=== PATIENT | male | born 1950 | race Caucasian/White ===

== ENCOUNTER → 2018-03-13 14:10 | Outpatient (CLI) | payer MEDICARE, SELFPAY ==
[2018-03-13 15:19] LABS: Absolute Lymphocyte Count 2.21 X10^3/ul (0.83-4.51); Absolute Neutrophil Count 4.2 X10^3/uL (2.0-7.7); Basophil# 0.04 X10^3/uL; Basophil% 0.5 % (0-1); Eosinophil# 0.24 X10^3/uL; Eosinophils% 3.1 % (0-5); Hematocrit 38.3 % (40-54); Hemoglobin 12.5 g/dl (13.0-16.5); Lymphocyte # 2.21 X10^3/ul (4.0); Lymphocyte % 28.9 % (19-41); Mean Corp Hgb Conc 32.6 g/gl (32-36); Mean Corpuscular Hgb 21.1 pg (27.0-32.0); Mean Corpuscular Volume 64.7 fL (80-94); Mean Platelet Vol. 10.3 fl (6.2-12.0); Monocyte# 0.89 X10^3/uL; Monocyte% 11.6 % (0-10); Neutrophil # 4.24 X10^3/uL (2.7-7.7); Neutrophil % 55.6 % (47-70); Platelet Count 281 K/mm3 (150-450); RBC Distribution Width SD 40.9 fl (35.1-43.9); Red Blood Count 5.92 M/mm3 (4.6-6.2); White Blood Count 7.6 K/mm3 (4.4-11.0)
[2018-03-13 15:27] LABS: POSITIVE COUNT NO; POSITIVE DIFFERENTIAL NO; POSITIVE MORPHOLOGY NO
[2018-03-13 15:28] LABS: Erythrocyte Sedimentation Rate 35 mm/hr (0-20)
[2018-03-13 15:31] LABS: ALB/GLOB Ratio 0.8 RATIO (0.9-2.4); AST(SGOT) 32 U/L (15-37); Alanine Aminotransfer ALT/SGPT 53 U/L (16-61); Albumin, Serum 3.6 g/dL (3.2-5.0); Alkaline Phosphatase 114 U/L (45-117); Anion Gap 9 (5-15); BUN 23 mg/dL (7-18); BUN/Creat Ratio 22.8 RATIO (10-20); CRP 5.54 mg/L (0.0-3.0); Calcium,Total 9.5 mg/dL (8.5-10.1); Chloride 101 mmol/L (98-107); Creatinine, Serum 1.01 mg/dL (0.70-1.30); EST Glomerular Filtration Rate 78 mL/min (>60); Est Glom Filt Rate - Afr Amer 94 mL/min (>60); Globulin 4.6 g/dL (2.2-4.2); Glucose 115 mg/dL (74-106); Potassium 3.8 mmol/L (3.5-5.1); Protein, Total 8.2 g/dL (6.4-8.2); Rheumatoid Factor < 10.0 IU/mL (<15); Sodium Level 139 mmol/L (136-145)
[2018-03-22 14:05] LABS: QNTFERON TB Mitogen Value > 10.00 IU/mL (.); QNTFERON TB Nil Value 0.73 IU/mL (.); QNTFERON TB1+ Ag Value 9.23 IU/mL (.); QNTFERON TB2+ Ag Value 9.39 IU/mL (.)
[2018-03-22 15:57] LABS: CCP IgG Antibodies 9 units (0-19); HEPATITIS B SURFACE AG Negative (Negative); HLA B27 Negative (.); Hep B Surface Antibodies Reactive (.); Hep C Antibodies <0.1 s/co ratio (0.0-0.9); QNTIFERON TB Positive Criteria Positive (Negative)
--- OUTSIDE RECORDS SUMMARY | 2018-06-15 01:56 | XMS RPT_ITS ---
:1950 Author Organization OH[facility] Care Team Providers Name Role Phone RAO ISLAS Referring Unavailable RAO ISLAS Referring Unavailable RAO ISLAS Attending Unavailable RAO ISLAS Attending Unavailable RAO ISLAS Attending Unavailable RAO ISLAS Referring Unavailable RAO ISLAS Attending Unavailable James KOEHLER (IVONNE-C) Referring Unavailable James KOEHLER (PA-C) Attending Unavailable James KOEHLER (PA-C) Referring Unavailable James KOEHLER (IVONNE-C) Referring Unavailable RAO ISLAS Referring Unavailable RAO ISLAS Referring Unavailable RAO ISLAS Attending Unavailable Stephanie Del Rio Attending Unavailable Stephanie Del Rio Referring Unavailable Rao Islas Primary Care Unavailable PROBLEMS PROBLEMS DATE TYPE CONDITION / CODE ATTENDING STATUS SOURCE 12/11/2017 Active Essential (primary) NA Active [facility] hypertension / [place] I10(ICD-10) Repository 12/11/2017 Active Abnormal levels of NA Active [facility] other serum enzymes [place] / R74.8(ICD-10) Repository 12/11/2017 Active Pain in right hand NA Active [facility] / M79.641(ICD-10) [place] Repository 12/11/2017 Active Pain in left hand / NA Active [facility] M79.642(ICD-10) [place] Repository 10/19/2017 Active Other injury of NA Active [facility] unspecified body [place] region, initial Repository encounter / T14.8XXA(ICD-10) 09/13/2017 Active Alcohol abuse, NA Active [facility] uncomplicated / [place] F10.10(ICD-10) Repository 07/31/2017 Active Hyperglycemia, NA Active [facility] unspecified / [place] R73.9(ICD-10) Repository 07/31/2017 Active Gout, unspecified / NA Active [facility] M10.9(ICD-10) [place] Repository 07/28/2017 Active [address] NA Active [facility] acquired deformity [place] of hand, Repository unspecified hand / M21.949(ICD-10) PROCEDURES PROCEDURES No Procedure Records FoundRESULTS RESULTS CBC W/DIFF, AUTOMATED Collected: 03/13/2018 Status: F Source: [place] 2:19 PM [facility] REPOSITORY TYPE CODE TESTS RESULT OUT OF RANGE REFERENCE UNITS LAB L100.1000 4.4-11.0 K/mm3 Normal WBC 7.6 LAB L100.1200 4.6-6.2 M/mm3 Normal RBC 5.92 LAB L100.1300 13.0-16.5 g/dl Low HGB 12.5 LAB L100.1400 40-54 % Low HCT 38.3 LAB L100.1500 80-94 fL Low MCV 64.7 LAB L100.1600 27.0-32.0 pg Low MCH 21.1 LAB L100.1700 32-36 g/gl Normal MCHC 32.6 LAB L100.1810 11.6-14.6 % High RDW CV 18.0 LAB L100.1820 35.1-43.9 fl Normal RDW SD 40.9 LAB L100.1900 150-450 K/mm3 Normal PLT 281 LAB L100.2000 6.2-12.0 fl Normal MPV 10.3 LAB L100.2100 47-70 % Normal NEUT% 55.6 LAB L100.2200 19-41 % Normal LY% 28.9 LAB L100.2300 0-10 % High MONO% 11.6 LAB L100.2400 0-5 % Normal EO% 3.1 LAB L100.2500 0-1 % Normal BASO% 0.5 LAB L100.2550 0.0-0.9 % Normal IM GRAN % 0.300 Result Comment: IG% - Immature Granulocytes (promyelocytes, myelocytes and metamyelocytes) > 1% indicates that a LEFT SHIFT is Present. LAB L100.2620 2.0-7.7 X10 3/uL Normal Absolute Neut 4.2 LAB L100.2720 0.83-4.51 X10 3/ul Normal Absolute Lymph 2.21 Performed By: #### L100.0100, L101.9900 #### [facility] [address] [place], [address] ERYTHROCYTE SED RATE Collected: 03/13/2018 Status: F Source: [place] 2:19 PM [facility] REPOSITORY TYPE CODE TESTS RESULT OUT OF RANGE REFERENCE UNITS LAB L102.0000 0-20 mm/hr High SED RATE 35 Performed By: #### L100.0100, L101.9900 #### [facility] [address] [place], [address] COMPREHENSIVE METABOLIC Collected: 03/13/2018 Status: F [facility] 2:19 PM [facility] REPOSITORY TYPE CODE TESTS RESULT OUT OF RANGE REFERENCE UNITS LAB L501.0100 74-106 mg/dL High GLU 115 Result Comment: Fasting Glucose result from 100 to 125 mg/dL suggests IMPAIRED HOMEOSTASIS per A.D.A. criteria. Please note revised GLUCOSE reference range effective 2017. LAB L501.1000 7-18 mg/dL High BUN 23 LAB L501.1100 0.70-1.30 mg/dL Normal CREAT,SERUM 1.01 Result Comment: The validity of the calculated GFR AND GFRAA in patients over 70 years has not been determined. Clinical correlation is essential. LAB L501.1110 >60 mL/min Normal EST GFR 78 Result Comment: Non- GFR Calc LAB L501.1115 >60 mL/min Normal EST GFR - AA 94 Result Comment: GFR Calc LAB L501.1300 10-20 RATIO High BUN/CRE 22.8 LAB L501.1500 6.4-8.2 g/dL T Normal PROT 8.2 LAB L501.1800 3.2-5.0 g/dL Normal ALB 3.6 LAB L501.1950 2.2-4.2 g/dL High GLOB 4.6 LAB L501.2000 0.9-2.4 RATIO Low A/G 0.8 LAB L501.2200 8.5-10.1 mg/dL CA Normal 9.5 LAB L501.4100 15-37 U/L Normal AST 32 LAB L501.4305 45-117 U/L Normal ALK P 114 LAB L501.4405 16-61 U/L Normal ALT 53 LAB L501.4600 0.20-1.00 mg/dL T Normal BILI 0.20 LAB L501.5300 136-145 mmol/L NA Normal 139 LAB L501.5600 3.5-5.1 mmol/L K Normal 3.8 LAB L501.5900 98-107 mmol/L CL Normal 101 LAB L501.6100 21.0-32.0 mmol/L Normal CO2 29.0 LAB L501.6200 5-15 Normal GAP 9 Performed By: #### L500.4050, L501.6710, L505.7010 #### [facility] [address] [place], [place], [id number] CRP Collected: 03/13/2018 Status: F Source: [place] 2:19 PM [facility] REPOSITORY TYPE CODE TESTS RESULT OUT OF RANGE REFERENCE UNITS LAB L501.6710 0.0-3.0 mg/L High 5.54 C-REACTIVE PROT Result Comment: C-Reactive Protein (CRP) provides useful information for the diagnosis, therapy and monitoring of inflammatory processes and associated diseases. For the evaluation of Relative Risk for Cardiovascular Disease, a High Sensitivity CRP (HSCRP) should be ordered. Performed By: #### L500.4050, L501.6710, L505.7010 #### [facility] [address] [facility]. [place], [place], [id number] RHEUMATOID FACTOR Collected: 03/13/2018 Status: F Source: [place] 2:19 PM [facility] REPOSITORY TYPE CODE TESTS RESULT OUT OF RANGE REFERENCE UNITS LAB L505.7010 <15 IU/mL Normal RHEUMATOID FAC < 10.0 Performed By: #### L500.4050, L501.6710, L505.7010 #### [facility] [address] [facility] [place], [place], [id number] HEPATITIS B SURFACE Collected: 03/13/2018 Status: F Source: [place] [facility] 2:19 PM [facility] REPOSITORY TYPE CODE TESTS RESULT OUT OF RANGE REFERENCE UNITS LAB L3100.0400 Negative Normal HB Negative SURF AG Result Comment: Performed at: [address] [id number] Building Carpenter Helper: Gerardo Dudley PhD, Phone: [phone] Performed at: 2Q - [facility] [address] [place], [place] [id number] Building Carpenter Helper: Vamshi Mead PhD, Phone: [phone] Performed at: BN - [facility] [address], [place] [id number] Building Carpenter Helper: Girma Medina MD, Phone: [phone] Performed By: #### L3100.0390, L3100.0528, L3100.0625, L3400.8000, L3410.1400, L4600.0100 #### [facility] (refer to report for specific site) refer to report for address and phone number HEP B SURFACE Collected: 03/13/2018 Status: F Source: [place] [facility] 2:19 PM [facility] REPOSITORY TYPE CODE TESTS RESULT OUT OF RANGE REFERENCE UNITS LAB L3100.0528 . Normal Hep B Reactive Sunil AB Result Comment: Non Reactive: Inconsistent with immunity, less than 10 mIU/mL Reactive: Consistent with immunity, greater than 9.9 mIU/mL Performed By: #### L3100.0390, L3100.0528, L3100.0625, L3400.8000, L3410.1400, L4600.0100 #### [facility] (refer to report for specific site) refer to report for address and phone number HEPATITIS C ANTIBODIES Collected: 03/13/2018 Status: F Source: [place] 2:19 PM [facility] REPOSITORY TYPE CODE TESTS RESULT OUT OF RANGE REFERENCE UNITS LAB L3100.0650 0.0-0.9 s/co ratio Normal HEP C AB <0.1 Result Comment: Negative: < 0.8 Indeterminate: 0.8 - 0.9 Positive: > 0.9 The CDC recommends that a positive HCV antibody result be followed up with a HCV Nucleic Acid Amplification test ([id number]). Performed By: #### L3100.0390, L3100.0528, L3100.0625, L3400.8000, L3410.1400, L4600.0100 #### [facility] (refer to report for specific site) refer to report for address and phone number QUANTIFERON TB-GOLD+ Collected: 03/13/2018 Status: F Source: [place] 2:19 PM [facility] REPOSITORY TYPE CODE TESTS RESULT OUT OF RANGE REFERENCE UNITS LAB L3400.8025 . Normal QFT TB Comment GOLD Result Comment: The QuantiFERON-TB Gold Plus result is determined by subtracting the Nil value from either TB antigen (Ag) tube. The mitogen tube serves as a control for the test. LAB L3400.8035 . IU/mL Normal QFT TB1+ AG 9.23 [facility] L3400.8045 . IU/mL Normal QFT TB2+ AG 9.39 [facility] L3400.8055 . IU/mL Normal QFT NIL VALUE 0.73 LAB L3400.8065 . IU/mL Normal QFT MITOGEN > 10.00 [facility] L3400.8075 Negative High QFT TB POS Positive CRIT Result Comment: The specimen received for QuantiFERON testing was incubated by the ordering institution. Specific procedures outlined in our Directory of Services and in the package insert for the QuantiFERON Gold (In Tube) test must be followed to enable for proper stimulation of cells for the production of interferon gamma. Performed By: #### L3100.0390, L3100.0528, L3100.0625, L3400.8000, L3410.1400, L4600.0100 #### [facility] (refer to report for specific site) refer to report for address and phone number HLA B27 Collected: 03/13/2018 Status: F Source: [place] 2:19 PM [facility] REPOSITORY TYPE CODE TESTS RESULT OUT OF RANGE REFERENCE UNITS LAB L3410.1500 . Normal HLA Negative B27 Result Comment: HLA-B*27 Negative B27 allele interpretation for all loci based on IMGT/HLA database version 3.31.0 This test was developed and its performance characteristics determined by [facility]. It has not been cleared or approved by the Food and Drug Administration. [facility] CLIA ID Number [id number] This test was performed using PCR (Polymerase Chain Reaction)/SSOP (Sequence Specific Oligonucleotide Probes) technique. SBT (Sequence Based Typing) and/or SSP (Sequence Specific Primers) may be used as supplemental methods when necessary. Please contact [facility] Customer Service at if you have any questions. Director of [facility] Dr Vamshi Mead, PhD Performed By: #### L3100.0390, L3100.0528, L3100.0625, L3400.8000, L3410.1400, L4600.0100 #### [facility] (refer to report for specific site) refer to report for address and phone number CCP IGG ANTIBODIES Collected: 03/13/2018 Status: F Source: [place] 2:19 PM [facility] REPOSITORY TYPE CODE TESTS RESULT OUT OF RANGE REFERENCE UNITS LAB L4600.0100 0-19 units Normal ANTI-CCP 9 [id number] Result Comment: Negative <20 Weak positive 20 - 39 Moderate positive 40 - 59 Strong positive >59 Performed By: #### L3100.0390, L3100.0528, L3100.0625, L3400.8000, L3410.1400, L4600.0100 #### [facility] (refer to report for specific site) refer to report for address and phone number SED RATE [place]STERGREN Collected: 12/11/2017 Status: F Source: [place] 4:12 PM [facility] REPOSITORY TYPE CODE TESTS RESULT OUT OF REFERENCE UNITS RANGE LAB WSR 0-15 mm/hr Sed Rate High [place] 16 Performed By: #### WSR, CMP, CRP, URIC #### [facility] [address] [place] [address] COMP METABOLIC PANEL Collected: 12/11/2017 Status: F Source: [place] 4:12 PM [facility] REPOSITORY TYPE CODE TESTS RESULT OUT OF REFERENCE UNITS RANGE LAB TP 6.3-8.0 g/dL Protein, Total 7.5 LAB ALB 3.9-4.9 g/dL Albumin 4.2 LAB CA 8.5-10.2 mg/dL Calcium, Total 9.4 LAB TBIL 0.2-1.3 mg/dL Bilirubin, Total 0.3 LAB ALKP 36-108 U/L Alkaline Phosphatase 80 LAB AST 14-40 U/L AST 40 LAB GLU 74-99 mg/dL Glucose High 102 Result Comment: The [place] Diabetes Association (ADA) provides guidance for cutoff values for fasting glucose and random glucose. The ADA defines fasting as no caloric intake for at least 8 hours. Fas ting plasma glucose results between 100 to 125 mg/dL indicate increased risk for diabetes (prediabetes). Fasting plasma glucose results greater than or equal to 126 mg/dL meet the criteria for diagnosis of diabetes. In the absence of unequivocal hyperglycemia, results should be confirmed by repeat testing. In a patient with classic symptoms of hyperglycemia or hyperglycemic crisis, random plasma glucose results greater than or equal to 200 mg/dL meet the criteria for diagnosis of diabetes. Reference: Standards of Medical Care in Diabetes 2016, [place] Diabetes Association. Diabetes Care. 2016.39(Suppl 1). LAB BUN 9-24 mg/dL BUN 12 LAB CRET 0.73-1.22 mg/dL Creatinine 0.87 LAB NA 136-144 mmol/L Sodium 136 LAB K 3.7-5.1 mmol/L Potassium 4.6 LAB CL 97-105 mmol/L Chloride 99 LAB CO2 22-30 mmol/L CO2 26 LAB AGAP 9-18 mmol/L Anion Gap 11 LAB ALT 10-54 U/L ALT 39 LAB GFRAA eGFR- Amer. >60 LAB GFRNAA . eGFR-All Other Races >60 Result Comment: eGFR (Estimated GFR) Units of measure: mL/min/1.73 meters squared eGFR is derived from the reexpressed MDRD Study equation using the following parameters: serum creatinine, age, gender and race. The creatinine assay has been calibrated to be traceable to IDMS. An eGFR <60 mL/min/1.73m2 for >3 months is consistent with chronic kidney disease. Refer to KDOQI guidelines for clinical interpretation. In patients with unstable renal function, e.g. those with acute kidney injury, the eGFR may not accurately reflect actual GFR. Performed By: #### WSR, CMP, CRP, URIC #### [facility] [employer] [address] [place] [id number] C-REACTIVE PROTEIN Collected: 12/11/2017 Status: F Source: [place] 4:12 PM [facility] REPOSITORY TYPE CODE TESTS RESULT OUT OF REFERENCE UNITS RANGE LAB CRP <0.9 mg/dL C-Reactive 0.4 Protein Performed By: #### WSR, CMP, CRP, URIC #### [facility] [address] [place] [address] URIC ACID Collected: 12/11/2017 Status: F Source: [place] 4:12 PM [facility] REPOSITORY TYPE CODE TESTS RESULT OUT OF RANGE REFERENCE UNITS LAB URIC 4.0-8.1 mg/dL Uric Acid 5.5 Performed By: #### WSR, CMP, CRP, URIC #### [facility] [address] [place] [id number] XR HAND 3V PA/LAT/OBL Observed: 12/11/2017 Status: F Source: [facility] 4:09 PM [facility] REPOSITORY * * *Final Report* * * DATE OF EXAM: Dec 11 2017 4:09PM [id number] - XR HAND 3V PA/LAT/OBL IRA / PROCEDURE REASON: multiple diagnoses * * * * Physician Interpretation * * * * EXAMINATION: XR HAND 3V PA/LAT/OBL IRA CLINICAL HISTORY: No injury. Bilateral hand pain mostly in the DIP joints of the fingers. Pain in right hand Pain in left hand Technique: XR HAND 3V PA/LAT/OBL IRA -- BILATERAL hands with 3 each views on 3 images Comparison: 07/28/2017 RESULT: Right: Redemonstration of remote ulnar styloid fracture. Joint spaces are maintained. No new fracture or dislocation. Degenerative changes in the DIP joints with small marginal osteophytes and cysts predominantly in the second and fifth fingers associated with mild soft tissue swelling. Left: Redemonstration of cystic change in the distal pole of the scaphoid, unchanged. No fracture or dislocation. Degenerative changes in the DIP joints with small marginal osteophytes at second and fifth fingers associated with soft tissue swelling. IMPRESSION: No acute osseous findings. Degenerative changes bilateral hands as described. Network Desktop Support Specialist: PSCB Transcribe Date/Time: Dec 11 2017 5:40P Dictated by : SAMANTHA KEMP MD This examination was interpreted and the report reviewed and electronically signed by: SAMANTHA KEMP MD on Dec 11 2017 5:43PM EST [id number] PROGRESS Observed: 12/11/2017 Status: COMPLETED Source: [place] 4:00 PM [facility] REPOSITORY HNO ID: [id number] Author: Ginger Rodriguez (Rt) Angélica Brewster Service: (none) Author Type: Director Of Market Analysis Type: Progress Notes Filed: 12/11/2017 4:09 PM Note Text: Radiology Service Progress Note PATIENT NAME: Max Ventura DATE OF SERVICE: December 11, 2017 TIME: 4:00 PM PATIENT IDENTITY VERIFICATION COMPLETED USING TWO (2) METHODS: Patient confirmed name verbally and Date of . PATIENT GENDER DATA: Male PATIENT RELEVANT IMPLANT DATA REVIEWED: Not Applicable RADIOLOGY DEPARTMENT: General X-ray: Exam(s) Completed: Upper Extremity X-Ray(s): Hand, bilateral : PERIPHERAL IV DATA: Not applicable SIGNED BY: RT Bisi December 11, 2017 4:00 PM PROGRESS Observed: 12/11/2017 Status: COMPLETED Source: [place] 3:22 PM [facility] HNO ID: [id number] Author: Rao Islas Service: (none) Author Type: Physician Type: Progress Notes Filed: 12/11/2017 3:31 PM Note Text: Patient presents with: Recheck: left great toe HPI: Patient presents today for office visit for follow up. HTN: Patient is compliant with meds Yes Monitors bp at home: No. Denies side effects: Yes. Chest pain: No. Dyspnea: No. Edema: No. Palpitations: No. Syncope: No. Headache: No. Dizziness: No. Gi: no longer drinking. Has had a rare etoh use. Toe is healing well. His hands are bothering him more. Pain is over the distal joints. He was worried about gout because worse when he is eating meat. He does have some psoriatic lesions on his skin. Using gold arboleda for skin. MEDICATIONS: Current Outpatient Prescriptions: lisinopril (ZESTRIL, PRINIVIL) 40 mg tablet Take 1 tablet by mouth once daily. Hydrochlorothiazide 12.5 mg capsule Take 1 capsule by mouth once daily. No current facility-administered medications for this visit. ALLERGIES: ALLERGIES No Known Allergies PAST MEDICAL HISTORY Diagnosis Date - Hernia of abdominal cavity - HTN (hypertension) - Hyperglycemia - Tobacco abuse quit PAST SURGICAL HISTORY Procedure Laterality Date - PAST SURGICAL HISTORY OF dental work - REPAIR INCISIONAL HERNIA,REDUCIBLE Bilateral 08/26/2014 3D Max lite FAMILY HISTORY Problem Relation Age of Onset - Diabetes Mother Social History Marital status: Single Spouse name: Years of education: Number of children: 2 Social History Main Topics Smoking status: Former Smoker Packs/day: 1.00 Years: 50.00 Types: Cigarettes Quit date: 05/15/2012 Smokeless tobacco: Never Used Comment: continues nicotine gum Alcohol use: Yes 4.0 oz/week Glasses of wine: 8 per week Comment: 1bottle and 1 glass of wine daily Drug use: No Reviewed current medications, allergies, past medical history, surgical history, family history and social history today. REVIEW OF SYSTEMS GI: Negative for change in bowel habit : No history of dysuria, frequency or incontinence All other reviewed and negative other than HPI. HEALTH MAINTENANCE: Reviewed health maintenance issues today and recommended the following in detail. DTAP,TDAP,TD(1 - Tdap) due on 09/10/2015 [place]EC[place] OCCULT BLOOD due on 07/19/2017 INFLUENZA declines VITALS: BP 118/72 Pulse (!) 52 Resp 16 Last 4 Encounter Wt Readings: Date: Wt: 11/14/2017 63.5 kg (140 lb) 07/28/2017 67.6 kg (149 lb) 07/18/2016 64.9 kg (143 lb) 09/09/2015 67.1 kg (148 lb) PHYSICAL EXAMINATION: General appearance: Well appearing, alert, in no acute distress, well-hydrated, well nourished. Skin: Skin color, texture, turgor normal, no suspicious rashes or lesions. Toe healing well. Red flags for re-assessment reviewed with patient in detail. Head: Normocephalic, no masses, lesions, tenderness or abnormalities Neck: Supple, no adenopathy; thyroid symmetric, normal size, no bruits Lungs: Lungs clear to auscultation. No wheezing, rhonchi, rales Heart: RRR without murmur, gallop, or rubs. No ectopy Abdomen: Normal abdominal exam, Abdomen soft, non-tender. Bowel sounds normal. No masses, organomegaly Extremities: No deformities, edema, skin discoloration, clubbing or cyanosis. Good capillary refill. Musculoskeletal: No joint swelling, deformity, or tenderness, ? Psoriatic arthritis. Has some plaques over elbows and swelling over dip joints of hands. ASSESSMENT/PLAN: 1. Essential hypertension - ICD9: 401.9, ICD10: I10 (primary diagnosis) - good control - Continue current medication(s) - Goal of BP <140/90 2. Tobacco abuse - ICD9: 305.1, ICD10: Z72.0 - no longer smoking. 3. Psoriasis - ICD9: 696.1, ICD10: L40.9 - ok to use gold arboleda. 4. Psoriatic arthritis (HCC) - ICD9: 696.0, ICD10: L40.50 - get xrays. Get labs. See rheum 5. Elevated liver enzymes - ICD9: 790.5, ICD10: R74.8 - check labs. Rao Islas MD RTO in six months and drenKwadwo RAYO Observed: 12/11/2017 Status: COMPLETED Source: [place] 2:20 PM [facility] REPOSITORY Office Visit (FAMPWS) MAX VENTURA ([id number]) 1950 M Date Time Provider Department 12/11/17 2:20 PM RAO ISLAS During your visit today, we recorded the following information about you: Pulse Respiration Blood pressure 52/minute 16/minute 118/72 Rao Islas MD 12/11/2017 3:31 PM Signed Patient presents with: Recheck: left great toe HPI: Patient presents today for office visit for follow up. HTN: Patient is compliant with meds Yes Monitors bp at home: No. Denies side effects: Yes. Chest pain: No. Dyspnea: No. Edema: No. Palpitations: No. Syncope: No. Headache: No. Dizziness: No. Gi: no longer drinking. Has had a rare etoh use. Toe is healing well. His hands are bothering him more. Pain is over the distal joints. He was worried about gout because worse when he is eating meat. He does have some psoriatic lesions on his skin. Using gold arboleda for skin. MEDICATIONS: Current Outpatient Prescriptions: lisinopril (ZESTRIL, PRINIVIL) 40 mg tablet Take 1 tablet by mouth once daily. Hydrochlorothiazide 12.5 mg capsule Take 1 capsule by mouth once daily. No current facility-administered medications for this visit. ALLERGIES: ALLERGIES No Known Allergies PAST MEDICAL HISTORY Diagnosis Date - Hernia of abdominal cavity - HTN (hypertension) - Hyperglycemia - Tobacco abuse quit PAST SURGICAL HISTORY Procedure Laterality Date - PAST SURGICAL HISTORY OF dental work - REPAIR INCISIONAL HERNIA,REDUCIBLE Bilateral 08/26/2014 3D Max lite FAMILY HISTORY Problem Relation Age of Onset - Diabetes Mother Social History Marital status: Single Spouse name: Years of education: Number of children: 2 Social History Main Topics Smoking status: Former Smoker Packs/day: 1.00 Years: 50.00 Types: Cigarettes Quit date: 05/15/2012 Smokeless tobacco: Never Used Comment: continues nicotine gum Alcohol use: Yes 4.0 oz/week Glasses of wine: 8 per week Comment: 1bottle and 1 glass of wine daily Drug use: No Reviewed current medications, allergies, past medical history, surgical history, family history and social history today. REVIEW OF SYSTEMS GI: Negative for change in bowel habit : No history of dysuria, frequency or incontinence All other reviewed and negative other than HPI. HEALTH MAINTENANCE: Reviewed health maintenance issues today and recommended the following in detail. DTAP,TDAP,TD(1 - Tdap) due on 09/10/2015 FECAL OCCULT BLOOD due on 07/19/2017 INFLUENZA declines VITALS: BP 118/72 Pulse (!) 52 Resp 16 Last 4 Encounter Wt Readings: Date: Wt: 11/14/2017 63.5 kg (140 lb) 07/28/2017 67.6 kg (149 lb) 07/18/2016 64.9 kg (143 lb) 09/09/2015 67.1 kg (148 lb) PHYSICAL EXAMINATION: General appearance: Well appearing, alert, in no acute distress, well-hydrated, well nourished. Skin: Skin color, texture, turgor normal, no suspicious rashes or lesions. Toe healing well. Red flags for re-assessment reviewed with patient in detail. Head: Normocephalic, no masses, lesions, tenderness or abnormalities Neck: Supple, no adenopathy; thyroid symmetric, normal size, no bruits Lungs: Lungs clear to auscultation. No wheezing, rhonchi, rales Heart: RRR without murmur, gallop, or rubs. No ectopy Abdomen: Normal abdominal exam, Abdomen soft, non-tender. Bowel sounds normal. No masses, organomegaly Extremities: No deformities, edema, skin discoloration, clubbing or cyanosis. Good capillary refill. Musculoskeletal: No joint swelling, deformity, or tenderness, ? Psoriatic arthritis. Has some plaques over elbows and swelling over dip joints of hands. ASSESSMENT/PLAN: 1. Essential hypertension - ICD9: 401.9, ICD10: I10 (primary diagnosis) - good control - Continue current medication(s) - Goal of BP <140/90 2. Tobacco abuse - ICD9: 305.1, ICD10: Z72.0 - no longer smoking. 3. Psoriasis - ICD9: 696.1, ICD10: L40.9 - ok to use gold arboleda. 4. Psoriatic arthritis (HCC) - ICD9: 696.0, ICD10: L40.50 - get xrays. Get labs. See rheum 5. Elevated liver enzymes - ICD9: 790.5, ICD10: R74.8 - check labs. Rao Islas MD RTO in six months and prn. Rao Islas MD 12/11/2017 3:57 PM Signed Addended by: RAO ISLAS MD on: 12/11/2017 03:57 PM Modules accepted: Orders Referring Provider: SELF [[id number]] Allergies As of Date: 12/11/2017 (No Known Allergies) Date Reviewed: 12/11/2017 Reviewed by: Maricruz Milton LPN - Fully Assessed Reason for Visit: Recheck [92] Cmt: left great toe Primary Visit Diagnosis:Essential hypertension [I10] Other Visit Diagnoses:Psoriasis [L40.9] Psoriatic arthritis (HCC) [L40.50] Elevated liver enzymes [R74.8] Pain in both hands [M79.641, M79.642] Screening for colon cancer [Z12.11] Order(s):XR HAND 2V PA/LAT BILATERAL [3492513] Order #: [id number] FUTURE COMP METABOLIC PANEL [SQCMP] Order #: [id number] FUTURE SED RATE WESTERGREN [SQWSR] Order #: [id number] FUTURE C-REACTIVE PROTEIN (CRP) [SQCRP] Order #: [id number] FUTURE URIC ACID BLOOD [SQURIC] Order #: [id number] FUTURE CONSULT TO RHEUM/IMMUN DISEASE [9039] Order #: [id number]: 1 FECAL OCCULT BLOOD TEST [SQIFOBT] Order #: [id number] FUTURE XR HAND GENERAL 3V PA/LAT/OBL BILAT [[id number]] Order #: [id number] FUTURE Prescriptions as of 12/11/2017 Sig: LISINOPRIL 40 MG TABLET Take 1 tablet by mouth once d* HYDROCHLOROTHIAZIDE 12.5 MG C* Take 1 capsule by mouth once * Problem List As Of Date 12/11/2017 Noted Resolved PSYCHOSEXUAL DYSFUNC NOS [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 Follow-up and Disposition History Recorded Encounter Status:Closed by RAO ISLAS MD on 12/11/17 PROGRESS Observed: 11/14/2017 Status: COMPLETED Source: [place] 2:00 PM [facility] REPOSITORY O ID: [id number] Author: Rao Islas Service: (none) Author Type: Physician Type: Progress Notes Filed: 11/14/2017 2:22 PM Note Text: Patient presents with: Recheck HPI: Patient presents today for office visit for recheck on his foot. No fever or chills. Seems to starting to heal. Not really draining any much. Using soap and water to cleanse. Offered podiatry or wound care. He declines. I explained I wanted to make sure it is healing up well. Offered to bradley. He declines that as well. No pain. Red flags for re-assessment reviewed with patient in detail. Hypertension: no chest pain or shortness of breath. MEDICATIONS: Current Outpatient Prescriptions: lisinopril (ZESTRIL, PRINIVIL) 40 mg tablet Take 1 tablet by mouth once daily. Hydrochlorothiazide 12.5 mg capsule Take 1 capsule by mouth once daily. No current facility-administered medications for this visit. ALLERGIES: ALLERGIES No Known Allergies PAST MEDICAL HISTORY Diagnosis Date - Hernia of abdominal cavity - HTN (hypertension) - Hyperglycemia - Tobacco abuse quit PAST SURGICAL HISTORY Procedure Laterality Date - PAST SURGICAL HISTORY OF dental work - REPAIR INCISIONAL HERNIA,REDUCIBLE Bilateral 08/26/2014 3D Max lite FAMILY HISTORY Problem Relation Age of Onset - Diabetes Mother Social History Marital status: Single Spouse name: Years of education: Number of children: 2 Social History Main Topics Smoking status: Former Smoker Packs/day: 1.00 Years: 50.00 Types: Cigarettes Quit date: 05/15/2012 Smokeless tobacco: Never Used Comment: continues nicotine gum Alcohol use: Yes 4.0 oz/week Glasses of wine: 8 per week Comment: 1bottle and 1 glass of wine daily Drug use: No Reviewed current medications, allergies, past medical history, surgical history, family history and social history today. REVIEW OF SYSTEMS All other reviewed and negative other than HPI. VITALS: BP 122/60 (BP Site: Left Arm, BP Position: Sitting, BP Cuff Size: Regular Adult) Pulse 64 Resp 14 Wt 63.5 kg (140 lb) BMI 24.03 kg/m? Last 4 Encounter Wt Readings: Date: Wt: 11/14/2017 63.5 kg (140 lb) 07/28/2017 67.6 kg (149 lb) 07/18/2016 64.9 kg (143 lb) 09/09/2015 67.1 kg (148 lb) PHYSICAL EXAMINATION: General appearance: Well appearing, alert, in no acute distress, well-hydrated, well nourished. Foot: end of great toe still shows some healing granulation tissue. No signs of infection. No red streaks. Normal pp's ASSESSMENT/PLAN: 1. Open fracture of both great toes with routine healing, subsequent encounter - ICD9: V54.19, ICD10: S92.401D, S92.402D (primary diagnosis) - watch for signs of infection. Is slowly healing. Declines xray, wound care or podiatry. Red flags for re-assessment reviewed with patient in detail. - recheck in two weeks. 2. Open wound of left great toe, subsequent encounter - ICD9: V58.89, 893.0, ICD10: S91.102D - as above. Rao Islas MD CNOV Observed: 11/14/2017 Status: COMPLETED Source: [place] 1:40 PM [facility] REPOSITORY Office Visit ([facility]) MAX VENTURA ([id number]) 1950 M Date Time Provider Department 11/14/17 1:40 PM RAO ISLAS During your visit today, we recorded the following information about you: Pulse Respiration Blood pressure Weight 64/minute 14/minute 122/60 63.5 kg Rao Islas MD 11/14/2017 2:22 PM Signed Patient presents with: Recheck HPI: Patient presents today for office visit for recheck on his foot. No fever or chills. Seems to starting to heal. Not really draining any much. Using soap and water to cleanse. Offered podiatry or wound care. He declines. I explained I wanted to make sure it is healing up well. Offered to bradley. He declines that as well. No pain. Red flags for re-assessment reviewed with patient in detail. Hypertension: no chest pain or shortness of breath. MEDICATIONS: Current Outpatient Prescriptions: lisinopril (ZESTRIL, PRINIVIL) 40 mg tablet Take 1 tablet by mouth once daily. Hydrochlorothiazide 12.5 mg capsule Take 1 capsule by mouth once daily. No current facility-administered medications for this visit. ALLERGIES: ALLERGIES No Known Allergies PAST MEDICAL HISTORY Diagnosis Date - Hernia of abdominal cavity - HTN (hypertension) - Hyperglycemia - Tobacco abuse quit PAST SURGICAL HISTORY Procedure Laterality Date - PAST SURGICAL HISTORY OF dental work - REPAIR INCISIONAL HERNIA,REDUCIBLE Bilateral 08/26/2014 3D Max lite FAMILY HISTORY Problem Relation Age of Onset - Diabetes Mother Social History Marital status: Single Spouse name: Years of education: Number of children: 2 Social History Main Topics Smoking status: Former Smoker Packs/day: 1.00 Years: 50.00 Types: Cigarettes Quit date: 05/15/2012 Smokeless tobacco: Never Used Comment: continues nicotine gum Alcohol use: Yes 4.0 oz/week Glasses of wine: 8 per week Comment: 1bottle and 1 glass of wine daily Drug use: No Reviewed current medications, allergies, past medical history, surgical history, family history and social history today. REVIEW OF SYSTEMS All other reviewed and negative other than HPI. VITALS: BP 122/60 (BP Site: Left Arm, BP Position: Sitting, BP Cuff Size: Regular Adult) Pulse 64 Resp 14 Wt 63.5 kg (140 lb) BMI 24.03 kg/m? Last 4 Encounter Wt Readings: Date: Wt: 11/14/2017 63.5 kg (140 lb) 07/28/2017 67.6 kg (149 lb) 07/18/2016 64.9 kg (143 lb) 09/09/2015 67.1 kg (148 lb) PHYSICAL EXAMINATION: General appearance: Well appearing, alert, in no acute distress, well-hydrated, well nourished. Foot: end of great toe still shows some healing granulation tissue. No signs of infection. No red streaks. Normal pp's ASSESSMENT/PLAN: 1. Open fracture of both great toes with routine healing, subsequent encounter - ICD9: V54.19, ICD10: S92.401D, S92.402D (primary diagnosis) - watch for signs of infection. Is slowly healing. Declines xray, wound care or podiatry. Red flags for re-assessment reviewed with patient in detail. - recheck in two weeks. 2. Open wound of left great toe, subsequent encounter - ICD9: V58.89, 893.0, ICD10: S91.102D - as above. Rao Islas MD Referring Provider: SELF [200] Allergies As of Date: 11/14/2017 (No Known Allergies) Date Reviewed: 11/14/2017 Reviewed by: Adeline Paris Patient Case Coordinator - Fully Assessed Reason for Visit: Recheck [92] Primary Visit Diagnosis:Open fracture of both great toes with routine healing, subsequent encounter [S92.401D, S92.402D] Other Visit Diagnosis:Open wound of left great toe, subsequent encounter [S91.102D] Prescriptions as of 11/14/2017 Sig: LISINOPRIL 40 MG TABLET Take 1 tablet by mouth once d* HYDROCHLOROTHIAZIDE 12.5 MG C* Take 1 capsule by mouth once * Problem List As Of Date 11/14/2017 Noted Resolved 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 Disc: Reason for discontinue is not on file. Disposition: Return in about 2 weeks (around 11/28/2017). Follow-up and Disposition History Recorded Encounter Status:Closed by RAO ISLAS MD on 11/14/17 PROGRESS Observed: 10/30/2017 Status: COMPLETED Source: [place] 3:35 PM [facility] HNO ID: [id number] Author: Rao Islas Service: (none) Author Type: Physician Type: Progress Notes Filed: 10/30/2017 4:20 PM Note Text: Patient presents with: Recheck: left great toe finished ATB HPI: Patient presents today for office visit for follow up toe wound and tuft fracture. Overall ok. Doing much better. No drainage. Less pain. No fever or chills. Offered to see sap senior developer. MEDICATIONS: Current Outpatient Prescriptions: lisinopril (ZESTRIL, PRINIVIL) 40 mg tablet Take 1 tablet by mouth once daily. Hydrochlorothiazide 12.5 mg capsule Take 1 capsule by mouth once daily. cephALEXin (KEFLEX) 500 mg capsule Take 1 capsule by mouth twice daily. No current facility-administered medications for this visit. ALLERGIES: ALLERGIES No Known Allergies PAST MEDICAL HISTORY Diagnosis Date - Hernia of abdominal cavity - HTN (hypertension) - Hyperglycemia - Tobacco abuse quit PAST SURGICAL HISTORY Procedure Laterality Date - PAST SURGICAL HISTORY OF dental work - REPAIR INCISIONAL HERNIA,REDUCIBLE Bilateral 08/26/2014 3D Max lite FAMILY HISTORY Problem Relation Age of Onset - Diabetes Mother Social History Marital status: Single Spouse name: Years of education: Number of children: 2 Social History Main Topics Smoking status: Former Smoker Packs/day: 1.00 Years: 50.00 Types: Cigarettes Quit date: 05/15/2012 Smokeless tobacco: Never Used Comment: continues nicotine gum Alcohol use: Yes 4.0 oz/week Glasses of wine: 8 per week Comment: 1bottle and 1 glass of wine daily Drug use: No Reviewed current medications, allergies, past medical history, surgical history, family history and social history today. REVIEW OF SYSTEMS All other reviewed and negative other than HPI. VITALS: BP 126/62 Pulse (!) 52 Resp 16 Last 4 Encounter Wt Readings: Date: Wt: 07/28/2017 67.6 kg (149 lb) 07/18/2016 64.9 kg (143 lb) 09/09/2015 67.1 kg (148 lb) 10/14/2014 63.3 kg (139 lb 8 oz) PHYSICAL EXAMINATION: General appearance: Well appearing, alert, in no acute distress, well-hydrated, well nourished. Extremities: toe does look better. Open area on the distal end. No drainage. Or signs of infection. ASSESSMENT/PLAN: 1. Open nondisplaced fracture of distal phalanx of left great toe with routine healing, subsequent encounter - ICD9: V54.19, ICD10: S92.425D - continue wound care - Red flags for re-assessment reviewed with patient in detail. - JENELLE Marroquin podiatry Rao Islas MD RTO in two weeks and prn. CNOV Observed: 10/30/2017 Status: COMPLETED Source: [place] 3:00 PM [facility] MAX VENTURA ([id number]) 1950 M Date Time Provider Department 10/30/17 3:00 PM RAO ISLAS During your visit today, we recorded the following information about you: Pulse Respiration Blood pressure 52/minute 16/minute 126/62 Rao Islas MD 10/30/2017 4:20 PM Signed Patient presents with: Recheck: left great toe finished ATB HPI: Patient presents today for office visit for follow up toe wound and tuft fracture. Overall ok. Doing much better. No drainage. Less pain. No fever or chills. Offered to see sap senior developer. MEDICATIONS: Current Outpatient Prescriptions: lisinopril (ZESTRIL, PRINIVIL) 40 mg tablet Take 1 tablet by mouth once daily. Hydrochlorothiazide 12.5 mg capsule Take 1 capsule by mouth once daily. cephALEXin (KEFLEX) 500 mg capsule Take 1 capsule by mouth twice daily. No current facility-administered medications for this visit. ALLERGIES: ALLERGIES No Known Allergies PAST MEDICAL HISTORY Diagnosis Date - Hernia of abdominal cavity - HTN (hypertension) - Hyperglycemia - Tobacco abuse quit PAST SURGICAL HISTORY Procedure Laterality Date - PAST SURGICAL HISTORY OF dental work - REPAIR INCISIONAL HERNIA,REDUCIBLE Bilateral 08/26/2014 3D Max lite FAMILY HISTORY Problem Relation Age of Onset - Diabetes Mother Social History Marital status: Single Spouse name: Years of education: Number of children: 2 Social History Main Topics Smoking status: Former Smoker Packs/day: 1.00 Years: 50.00 Types: Cigarettes Quit date: 05/15/2012 Smokeless tobacco: Never Used Comment: continues nicotine gum Alcohol use: Yes 4.0 oz/week Glasses of wine: 8 per week Comment: 1bottle and 1 glass of wine daily Drug use: No Reviewed current medications, allergies, past medical history, surgical history, family history and social history today. REVIEW OF SYSTEMS All other reviewed and negative other than HPI. VITALS: BP 126/62 Pulse (!) 52 Resp 16 Last 4 Encounter Wt Readings: Date: Wt: 07/28/2017 67.6 kg (149 lb) 07/18/2016 64.9 kg (143 lb) 09/09/2015 67.1 kg (148 lb) 10/14/2014 63.3 kg (139 lb 8 oz) PHYSICAL EXAMINATION: General appearance: Well appearing, alert, in no acute distress, well-hydrated, well nourished. Extremities: toe does look better. Open area on the distal end. No drainage. Or signs of infection. ASSESSMENT/PLAN: 1. Open nondisplaced fracture of distal phalanx of left great toe with routine healing, subsequent encounter - ICD9: V54.19, ICD10: S92.425D - continue wound care - Red flags for re-assessment reviewed with patient in detail. - JENELLE Marroquin podiatry Rao Islas MD RTO in two weeks and prn. Referring Provider: RAO ISLAS [[id number]] Allergies As of Date: 10/30/2017 (No Known Allergies) Date Reviewed: 10/23/2017 Reviewed by: Maricruz Milton LPN - Fully Assessed Reason for Visit: Recheck [92] Cmt: left great toe finished ATB Reason For Visit History Recorded Primary Visit Diagnosis:Open nondisplaced fracture of distal phalanx of left great toe with routine healing, subsequent encounter [S92.425D] Prescriptions as of 10/30/2017 Sig: LISINOPRIL 40 MG TABLET Take 1 tablet by mouth once d* HYDROCHLOROTHIAZIDE 12.5 MG C* Take 1 capsule by mouth once * CEPHALEXIN 500 MG CAPSULE Take 1 capsule by mouth twice* Problem List As Of Date 10/30/2017 Noted Resolved PSYCHOSEXUAL DYSFUNC NOS [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 Follow-up and Disposition History Recorded Encounter Status:Closed by RAO ISLAS MD on 10/30/17 PROGRESS Observed: 10/23/2017 Status: COMPLETED Source: [place] 1:42 PM [facility] HNO ID: [id number] Author: Rao Islas Service: (none) Author Type: Physician Type: Progress Notes Filed: 10/23/2017 2:18 PM Note Text: Patient presents with: Recheck: left great toe injury HPI: Patient presents today for office visit for recheck of toe. His right great toe tuft fracture. Lamonte had called in antibiotics due to it being open. No fever or chills. Pain is stable. Red flags for re-assessment reviewed with patient in detail. MEDICATIONS: Current Outpatient Prescriptions: lisinopril (ZESTRIL, PRINIVIL) 40 mg tablet Take 1 tablet by mouth once daily. Hydrochlorothiazide 12.5 mg capsule Take 1 capsule by mouth once daily. cephALEXin (KEFLEX) 500 mg capsule Take 1 capsule by mouth twice daily. No current facility-administered medications for this visit. ALLERGIES: ALLERGIES No Known Allergies PAST MEDICAL HISTORY Diagnosis Date - Hernia of abdominal cavity - HTN (hypertension) - Hyperglycemia - Tobacco abuse quit PAST SURGICAL HISTORY Procedure Laterality Date - PAST SURGICAL HISTORY OF dental work - REPAIR INCISIONAL HERNIA,REDUCIBLE Bilateral 08/26/2014 3D Max lite FAMILY HISTORY Problem Relation Age of Onset - Diabetes Mother Social History Marital status: Single Spouse name: Years of education: Number of children: 2 Social History Main Topics Smoking status: Former Smoker Packs/day: 1.00 Years: 50.00 Types: Cigarettes Quit date: 05/15/2012 Smokeless tobacco: Never Used Comment: continues nicotine gum Alcohol use: Yes 4.0 oz/week Glasses of wine: 8 per week Comment: 1bottle and 1 glass of wine daily Drug use: No Reviewed current medications, allergies, past medical history, surgical history, family history and social history today. REVIEW OF SYSTEMS All other reviewed and negative other than HPI. HEALTH MAINTENANCE: Reviewed health maintenance issues today and recommended the following in detail. VITALS: BP 126/68 Pulse (!) 56 Temp 36.4 ?C (97.6 ?F) (Tympanic) Resp 16 Last 4 Encounter Wt Readings: Date: Wt: 07/28/2017 67.6 kg (149 lb) 07/18/2016 64.9 kg (143 lb) 09/09/2015 67.1 kg (148 lb) 10/14/2014 63.3 kg (139 lb 8 oz) PHYSICAL EXAMINATION: General appearance: Well appearing, alert, in no acute distress, well-hydrated, well nourished. Skin: end of toe open. No red streaks. No warmth. Nail still intact. No deformity. ASSESSMENT/PLAN: 1. Open nondisplaced fracture of distal phalanx of right great toe with routine healing, subsequent encounter - ICD9: V54.19, ICD10: S92.424D (primary diagnosis) - start antimitotics. Red flags for re-assessment reviewed with patient in detail. rto in one week. Consider podiatry if any issues. 2. Essential hypertension - ICD9: 401.9, ICD10: I10 - good control - Continue current medication(s) - Goal of BP <130/80 Rao Islas MD CNOV Observed: 10/23/2017 Status: COMPLETED Source: [place] 1:40 PM [facility] REPOSITORY Office Visit ([facility]) MAX VENTURA ([id number]) 1950 M Date Time Provider Department 10/23/17 1:40 PM RAO ISLAS During your visit today, we recorded the following information about you: Temperature Pulse Respiration Blood pressure 97.6 degrees 56/minute 16/minute 126/68 Rao Islas MD 10/23/2017 2:18 PM Signed Patient presents with: Recheck: left great toe injury HPI: Patient presents today for office visit for recheck of toe. His right great toe tuft fracture. Lamonte had called in antibiotics due to it being open. No fever or chills. Pain is stable. Red flags for re-assessment reviewed with patient in detail. MEDICATIONS: Current Outpatient Prescriptions: lisinopril (ZESTRIL, PRINIVIL) 40 mg tablet Take 1 tablet by mouth once daily. Hydrochlorothiazide 12.5 mg capsule Take 1 capsule by mouth once daily. cephALEXin (KEFLEX) 500 mg capsule Take 1 capsule by mouth twice daily. No current facility-administered medications for this visit. ALLERGIES: ALLERGIES No Known Allergies PAST MEDICAL HISTORY Diagnosis Date - Hernia of abdominal cavity - HTN (hypertension) - Hyperglycemia - Tobacco abuse quit PAST SURGICAL HISTORY Procedure Laterality Date - PAST SURGICAL HISTORY OF dental work - REPAIR INCISIONAL HERNIA,REDUCIBLE Bilateral 08/26/2014 3D Max lite FAMILY HISTORY Problem Relation Age of Onset - Diabetes Mother Social History Marital status: Single Spouse name: Years of education: Number of children: 2 Social History Main Topics Smoking status: Former Smoker Packs/day: 1.00 Years: 50.00 Types: Cigarettes Quit date: 05/15/2012 Smokeless tobacco: Never Used Comment: continues nicotine gum Alcohol use: Yes 4.0 oz/week Glasses of wine: 8 per week Comment: 1bottle and 1 glass of wine daily Drug use: No Reviewed current medications, allergies, past medical history, surgical history, family history and social history today. REVIEW OF SYSTEMS All other reviewed and negative other than HPI. HEALTH MAINTENANCE: Reviewed health maintenance issues today and recommended the following in detail. VITALS: BP 126/68 Pulse (!) 56 Temp 36.4 ?C (97.6 ?F) (Tympanic) Resp 16 Last 4 Encounter Wt Readings: Date: Wt: 07/28/2017 67.6 kg (149 lb) 07/18/2016 64.9 kg (143 lb) 09/09/2015 67.1 kg (148 lb) 10/14/2014 63.3 kg (139 lb 8 oz) PHYSICAL EXAMINATION: General appearance: Well appearing, alert, in no acute distress, well-hydrated, well nourished. Skin: end of toe open. No red streaks. No warmth. Nail still intact. No deformity. ASSESSMENT/PLAN: 1. Open nondisplaced fracture of distal phalanx of right great toe with routine healing, subsequent encounter - ICD9: V54.19, ICD10: S92.424D (primary diagnosis) - start antimitotics. Red flags for re-assessment reviewed with patient in detail. rto in one week. Consider podiatry if any issues. 2. Essential hypertension - ICD9: 401.9, ICD10: I10 - good control - Continue current medication(s) - Goal of BP <130/80 Rao Islas MD Referring Provider: SELF [[id number]] Allergies As of Date: 10/23/2017 (No Known Allergies) Date Reviewed: 10/23/2017 Reviewed by: Maricruz Milton LPN - Fully Assessed Reason for Visit: Recheck [92] Cmt: left great toe injury Primary Visit Diagnosis:Open nondisplaced fracture of distal phalanx of right great toe with routine healing, subsequent encounter [S92.424D] Other Visit Diagnosis:Essential hypertension [I10] Prescriptions as of 10/23/2017 Sig: LISINOPRIL 40 MG TABLET Take 1 tablet by mouth once d* HYDROCHLOROTHIAZIDE 12.5 MG C* Take 1 capsule by mouth once * CEPHALEXIN 500 MG CAPSULE Take 1 capsule by mouth twice* Problem List As Of Date 10/23/2017 Noted Resolved PSYCHOSEXUAL DYSFUNC NOS [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 Follow-up and Disposition History Recorded Encounter Status:Closed by RAO ISLAS MD on 10/23/17 XR TOE 3V AP/LAT/OBL Observed: 10/19/2017 Status: F Source: [facility] 4:31 PM [facility] REPOSITORY * * *Final Report* * * DATE OF EXAM: Oct 19 2017 4:31PM WOX [id number] - XR TOE 3V AP/LAT/OBL LT / PROCEDURE REASON: Other injury of unspecified body region, initial encounter * * * * Physician Interpretation * * * * GREAT TOE OF THE LEFT FOOT X-RAY TECHNIQUE: 3 images: AP, lateral, and oblique views COMPARISON: None INDICATION: Other injury of unspecified body region, initial encounter; dropped shelf on the left great toe RESULT: Acute tuft fracture. Soft tissue swelling about the toe. No radiopaque foreign object is appreciated. - IMPRESSION: Acute tuft fracture. Network Desktop Support Specialist: PSCB Transcribe Date/Time: Oct 20 2017 8:57A Dictated by : DILCIA ROWLEY MD This examination was interpreted and the report reviewed and electronically signed by: DILCIA ROWLEY MD on Oct 20 2017 8:58AM EST [id number] PROGRESS Observed: 10/19/2017 Status: COMPLETED Source: [place] 4:22 PM [facility] HNO ID: [id number] Author: Delores Alberto Service: (none) Author Type: (none) Type: Progress Notes Filed: 10/19/2017 4:31 PM Note Text: Radiology Service Progress Note PATIENT NAME: Max Ventura DATE OF SERVICE: October 19, 2017 TIME: 4:22 PM PATIENT IDENTITY VERIFICATION COMPLETED USING TWO (2) METHODS: Patient confirmed name verbally and Date of . PATIENT GENDER DATA: Male PATIENT RELEVANT IMPLANT DATA REVIEWED: Not Applicable RADIOLOGY DEPARTMENT: General X-ray: Exam(s) Completed: Lower Extremity X-Ray(s): Toes, Left: 1st PERIPHERAL IV DATA: Not applicable SIGNED BY: Delores Alberto October 19, 2017 4:22 PM PROGRESS Observed: 10/19/2017 Status: COMPLETED Source: [place] 4:07 PM [facility] REPOSITORY HNO ID: [id number] Author: James Koehler Service: (none) Author Type: Physician Timber Sizer Operator Type: Progress Notes Filed: 10/19/2017 5:20 PM Note Text: 67 year old male with c/o dropped tile cutter on left great toe a few hours ago while cleaning the garage. Patient cuts through toenail, has had persistent bleeding. Throbbing. Patient is able to walk. He is not currently on any blood thinners or aspirin. Patient does identify that he stopped drinking alcohol about 2 months ago completely. Up to date TDAP HISTORIES FAMILY HISTORY Problem Relation Age of Onset - Diabetes Mother PAST MEDICAL HISTORY Diagnosis Date - Hernia of abdominal cavity - HTN (hypertension) - Hyperglycemia - Tobacco abuse quit PAST SURGICAL HISTORY Procedure Laterality Date - PAST SURGICAL HISTORY OF dental work - REPAIR INCISIONAL HERNIA,REDUCIBLE Bilateral 08/26/2014 3D Max lite Social History Marital status: Single Spouse name: Years of education: Number of children: 2 Social History Main Topics Smoking status: Former Smoker Packs/day: 1.00 Years: 50.00 Types: Cigarettes Quit date: 05/15/2012 Smokeless tobacco: Never Used Comment: continues nicotine gum Alcohol use: Yes 4.0 oz/week Glasses of wine: 8 per week Comment: 1bottle and 1 glass of wine daily Drug use: No ACTIVE PROBLEM LIST Psychosexual Dysfunction, 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 Disp: 30 tablet Rfl: 5 Hydrochlorothiazide 12.5 mg capsule Take 1 capsule by mouth once daily. Disp: 30 capsule Rfl: 5 No current facility-administered medications for this visit. BLOOD PRESSURE CONTROLLED due on 07/14/1967 DTAP,TDAP,TD(1 - Tdap) due on 09/10/2015 FECAL OCCULT BLOOD due on 07/19/2017 EXAM: BP 122/64 Pulse 80 Temp 36.2 ?C (97.2 ?F) (Tympanic) Resp 16 Pleasant pleasant adult man in mild pain distress. Alert and oriented all spheres. Normal affect and cognition. Speech normal. No deficits to learning or comprehension. Skin warm, dry, pink to lips and nailbeds. Normal turgor. Respirations regular and unlabored. Extrem: no clubbing, cyanosis, edema. Extremities are warm and pink with prompt capillary refill. Left great toe with dried blood, laceration through nail. Guarding but laceration is no opening with movement. Fairly swollen. XR: hard to read. I don't think there is a fractrue pending radiologist. ASSESSMENT/PLAN: 1. Crush injury - ICD9: 929.9, ICD10: T14.8XXA (primary diagnosis) - XR TOE AP/LAT/OBL LT 2. Laceration of left great toe without foreign body with damage to nail, initial encounter - ICD9: 893.0, ICD10: S91.212A Wound care reviewed. Area washed with saline, bacitracin and lose gauze dressing applied. F/U in 5 days for recheck Post-op shoe James Koehler PA-C CNOV Observed: 10/19/2017 Status: COMPLETED Source: [place] 3:40 PM [facility] REPOSITORY Office Visit (FAMPWS) MAX VENTURA ([id number]) 1950 M Date Time Provider Department 10/19/17 3:40 PM James KOEHLER) FAMPWS During your visit today, we recorded the following information about you: Temperature Pulse Respiration Blood pressure 97.2 degrees 80/minute 16/minute 122/64 Namrata Ge Ma 10/19/2017 3:44 PM Signed Patient dropped a tile cutter on top of his left great toe. Half of the nail was torn off. Pt was able to control the bleeding with bandaging. Pt was wearing a sandal at the time of the injury. James Koehler PA-C 10/19/2017 5:20 PM Signed 67 year old male with c/o dropped tile cutter on left great toe a few hours ago while cleaning the garage. Patient cuts through toenail, has had persistent bleeding. Throbbing. Patient is able to walk. He is not currently on any blood thinners or aspirin. Patient does identify that he stopped drinking alcohol about 2 months ago completely. Up to date TDAP HISTORIES FAMILY HISTORY Problem Relation Age of Onset - Diabetes Mother PAST MEDICAL HISTORY Diagnosis Date - Hernia of abdominal cavity - HTN (hypertension) - Hyperglycemia - Tobacco abuse quit PAST SURGICAL HISTORY Procedure Laterality Date - PAST SURGICAL HISTORY OF dental work - REPAIR INCISIONAL HERNIA,REDUCIBLE Bilateral 08/26/2014 3D Max lite Social History Marital status: Single Spouse name: Years of education: Number of children: 2 Social History Main Topics Smoking status: Former Smoker Packs/day: 1.00 Years: 50.00 Types: Cigarettes Quit date: 05/15/2012 Smokeless tobacco: Never Used Comment: continues nicotine gum Alcohol use: Yes 4.0 oz/week Glasses of wine: 8 per week Comment: 1bottle and 1 glass of wine daily Drug use: No ACTIVE PROBLEM LIST Psychosexual Dysfunction, 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 Disp: 30 tablet Rfl: 5 Hydrochlorothiazide 12.5 mg capsule Take 1 capsule by mouth once daily. Disp: 30 capsule Rfl: 5 No current facility-administered medications for this visit. BLOOD PRESSURE CONTROLLED due on 07/14/1967 DTAP,TDAP,TD(1 - Tdap) due on 09/10/2015 FECAL OCCULT BLOOD due on 07/19/2017 EXAM: BP 122/64 Pulse 80 Temp 36.2 ?C (97.2 ?F) (Tympanic) Resp 16 Pleasant pleasant adult man in mild pain distress. Alert and oriented all spheres. Normal affect and cognition. Speech normal. No deficits to learning or comprehension. Skin warm, dry, pink to lips and nailbeds. Normal turgor. Respirations regular and unlabored. Extrem: no clubbing, cyanosis, edema. Extremities are warm and pink with prompt capillary refill. Left great toe with dried blood, laceration through nail. Guarding but laceration is no opening with movement. Fairly swollen. XR: hard to read. I don't think there is a fractrue pending radiologist. ASSESSMENT/PLAN: 1. Crush injury - ICD9: 929.9, ICD10: T14.8XXA (primary diagnosis) - XR TOE AP/LAT/OBL LT 2. Laceration of left great toe without foreign body with damage to nail, initial encounter - ICD9: 893.0, ICD10: S91.212A Wound care reviewed. Area washed with saline, bacitracin and lose gauze dressing applied. F/U in 5 days for recheck Post-op carloshaley Ramirez CORNELL Crocker PA-C 10/19/2017 4:43 PM Signed Keep area(s) clean and dry. Wash with soap and water twice a day followed by Bacitracin ointment and a clean dry gauze (not telfa) dressing until oozing or bleeding stops. Once wound is dry, you may leave it open to the air. Recheck wound in 2-3 days here as needed If any unusual pain, swelling, red streaks, pus, fever or other signs of worsening infection, call immediately. You may use Ibuprofen 600-800mg (3-4 OTC 200mg tabs) every 6-8 hours with food routinely until pain is fully resolved, then prn. Ibuprofen can cause stomach symptoms including ulceration, bleeding, nausea, pain, and diarrhea. Make sure to take it with food. If you are known to have allergy to anti-inflamatories medications, or have known kidney disease, make sure we know this before you take the medication. Referring Provider: SELF [200] Allergies As of Date: 10/19/2017 (No Known Allergies) Date Reviewed: 09/09/2015 Reviewed by: Kelsi Arellano LPN - Fully Assessed Reason for Visit: Trauma [112] Cmt: Left great toe Primary Visit Diagnosis:Crush injury [T14.8XXA] Other Visit Diagnosis:Laceration of left great toe without foreign body with damage to nail, initial encounter [S91.212A] Order(s):XR TOE AP/LAT/OBL LT [[id number]] Order #: [id number] FUTURE Prescriptions as of 10/19/2017 Sig: LISINOPRIL 40 MG TABLET Take 1 tablet by mouth once d* HYDROCHLOROTHIAZIDE 12.5 MG C* Take 1 capsule by mouth once * Problem List As Of Date 10/19/2017 Noted Resolved PSYCHOSEXUAL DYSFUNC NOS [F52.9] INVALID FOR* UNCERTAIN BEHAV NEOPL SKIN [D48.5] INVALID FOR* ELEV BL PRES W/O HYPERTN [R03.0] INVALID FOR*07/22/2014 Bilateral inguinal hernia [K40.20] INVALID FOR* Tobacco abuse [Z72.0] INVALID FOR* HTN (hypertension) [I10] INVALID FOR* Other instructions from your clinician: Keep area(s) clean and dry. Wash with soap and water twice a day followed by Bacitracin ointment and a clean dry gauze (not telfa) dressing until oozing or bleeding stops. Once wound is dry, you may leave it open to the air. Recheck wound in 2-3 days here as needed If any unusual pain, swelling, red streaks, pus, fever or other signs of worsening infection, call immediately. You may use Ibuprofen 600-800mg (3-4 OTC 200mg tabs) every 6-8 hours with food routinely until pain is fully resolved, then prn. Ibuprofen can cause stomach symptoms including ulceration, bleeding, nausea, pain, and diarrhea. Make sure to take it with food. If you are known to have allergy to anti-inflamatories medications, or have known kidney disease, make sure we know this before you take the medication. Visit Notes: >> Namrata Cuadrakayode Knapp [facility] Oct 19, 2017 3:35 PM Status: Signed Patient dropped a tile cutter on top of his left great toe. Half of the nail was torn off. Pt was able to control the bleeding with bandaging. Pt was wearing a sandal at the time of the injury. Encounter Status:Closed by James KOEHLER PA-C on 10/19/17 HEPATIC FUNCTN PANEL Collected: 09/13/2017 Status: F Source: [place] 2:35 PM [facility] REPOSITORY TYPE CODE TESTS RESULT OUT OF REFERENCE UNITS RANGE LAB ALB 3.9-4.9 g/dL Albumin 4.3 LAB TBIL 0.2-1.3 mg/dL Bilirubin, Total 0.4 LAB CBIL <0.2 mg/dL Bilirubin,Conjuga <0.2 pamela LAB ALKP 36-108 U/L Alkaline Phosphatase 90 LAB AST 14-40 U/L AST High 52 LAB ALT 10-54 U/L ALT 51 LAB TP 6.3-8.0 g/dL Protein, Total 7.9 Performed By: #### HFP #### [facility] [address] [place], [place] [address] LIPID PANEL, BASIC Collected: 09/13/2017 Status: F Source: [place] 2:35 PM [facility] REPOSITORY TYPE CODE TESTS RESULT OUT OF REFERENCE UNITS RANGE LAB CHOL <200 mg/dL Cholesterol High 223 Result Comment: <200 mg/dL, Desirable 200-239 mg/dL, Borderline high >239 mg/dL, High LAB TRIGLY <150 mg/dL Triglyceride 137 Result Comment: <150 mg/dL, Normal 150-199 mg/dL, Borderline high 200-499 mg/dL, High >499 mg/dL, Very high LAB HDL >39 mg/dL HDL-Cholesterol Low 39 Result Comment: 40-59 mg/dL, Acceptable >59 mg/dL, High: Negative risk factor for coronary heart disease <40 mg/dL, Low: Positive risk factor for coronary heart disease LAB LDL <100 mg/dL LDL-Cholesterol High 157 Result Comment: <100 mg/dL, Optimal 100-129 mg/dL, Near optimal/above optimal 130-159 mg/dL, Borderline high 160-189 mg/dL, High >189 mg/dL, Very high Secondary prevention optimal LDL Cholesterol levels are recommended to be < 70 mg/dL LAB NONHDL <130 mg/dL Non HDL High Cholesterol 184 Result Comment: <130 mg/dL, Optimal 130-159 mg/dL, Near optimal/above optimal 160-189 mg/dL, Borderline high 190-219 mg/dL, High >219 mg/dL, Very high Secondary prevention optimal non HDL Cholesterol levels are recommended to be < 100 mg/dL LAB FT hrs Fasting Time 12 LAB VLDL <30 mg/dL VLDL Cholesterol 27 LAB TCHDL <5.10 High TC:HDL Ratio 5.72 LAB LDLHDL <2.54 High LDL:HDL Ratio 4.03 Result Comment: Reference: 1. National Cholesterol Education Program ATP III Guideline At-A-Glance Quick Desk Reference: National Heart, Lung, and Blood [place]. National Institutes of Health. 2001: NIH Publication No. 01-3305. 2. An International Atherosclerosis Society position paper: global recommendations for the management of dyslipidemia: executive summary, Atherosclerosis. 2014: 232(2):410-413. Performed By: #### LIPB #### [facility] [address] [place], [place] [address] PROGRESS Observed: 08/04/2017 Status: COMPLETED Source: [place] 3:30 PM [facility] REPOSITORY HNO ID: [id number] Author: Karl Vega (Rdms) Service: (none) Author Type: Goodwill Ambassador Type: Progress Notes Filed: 08/04/2017 3:31 PM Note Text: Radiology Service Progress Note PATIENT NAME: Max Ventura DATE OF SERVICE: August 04, 2017 TIME: 3:30 PM PATIENT IDENTITY VERIFICATION COMPLETED USING TWO (2) METHODS: Patient confirmed name verbally and Date of . PATIENT GENDER DATA: Male PATIENT RELEVANT IMPLANT DATA REVIEWED: Not Applicable RADIOLOGY DEPARTMENT: Ultrasound PERIPHERAL IV DATA: Not applicable SIGNED BY: KARL VEGA RDMS RVT August 04, 2017 3:30 PM US ABD RIGHT UPPER Observed: 08/04/2017 Status: F Source: [facility] 3:28 PM [facility] REPOSITORY * * *Final Report* * * DATE OF EXAM: Aug 04 2017 3:28PM WRU [id number] - US ABD RIGHT UPPER QUADRANT / PROCEDURE REASON: multiple diagnoses * * * * Physician Interpretation * * * * EXAM TITLE: US ABD RIGHT UPPER QUADRANT HISTORY: Abnormal liver function test. TECHNIQUE: Sonography of the right upper quadrant was performed. Images were obtained and stored in a permanent archive. MQ: [id number] COMPARISON: None. RESULT: Limitations: Bowel gas. Pancreas: Suboptimal visualization of the pancreas, likely due to bowel gas. The visualized portions of the pancreas appear unremarkable. Portions obscured: Body and tail Liver: Borderline enlarged Echotexture: Homogeneous Echogenicity: Increase in echogenicity and decrease in penetration Surface contour: Smooth Lesions: None. Biliary: No intrahepatic biliary duct dilation. CBD: 4 mm. Gallbladder: -Size: 10 x 4 x 3.5 mm -Contents: Sludge noted -Wall: 2 mm in thickness -Other: No pericholecystic fluid. Right Kidney: Within normal limits, measuring 8.8 cm in length. Others: The spleen measures 9 x 8.2 x 4.3 cm. No lesion seen. IMPRESSION: Findings are suggestive of hepatic steatosis. Borderline distended gallbladder with sludge. No splenomegaly. Network Desktop Support Specialist: MARITZA Transcribe Date/Time: Aug 04 2017 3:48P Dictated by : SARAH BHAKTA MD This examination was interpreted and the report reviewed and electronically signed by: SARAH BHAKTA MD on Aug 04 2017 3:53PM EST [id number] SED RATE WESTERGREN Collected: 07/31/2017 Status: F Source: [place] 4:20 PM [facility] REPOSITORY TYPE CODE TESTS RESULT OUT OF REFERENCE UNITS RANGE LAB WSR 0-15 mm/hr Sed Rate Westergren 12 Performed By: #### WSR, URIC #### [facility] [address] [place], [place] [id number] URIC ACID Collected: 07/31/2017 Status: F Source: [place] 4:20 PM [facility] REPOSITORY TYPE CODE TESTS RESULT OUT OF RANGE REFERENCE UNITS LAB URIC 4.0-8.1 mg/dL Uric Acid 6.6 Performed By: #### WSR, URIC #### [facility] [address] [place], [place] [address] COMP METABOLIC PANEL Collected: 07/31/2017 Status: F Source: [place] 4:20 PM [facility] REPOSITORY TYPE CODE TESTS RESULT OUT OF REFERENCE UNITS RANGE LAB TP 6.3-8.0 g/dL Protein, High Total 8.3 LAB ALB 3.9-4.9 g/dL Albumin 4.3 LAB CA 8.5-10.2 mg/dL Calcium, Total 9.2 LAB TBIL 0.2-1.3 mg/dL Bilirubin, Total 0.5 LAB ALKP 36-108 U/L Alkaline High Phosphatase 126 LAB AST 14-40 U/L AST High 75 LAB GLU 74-99 mg/dL Glucose 97 Result Comment: The [place] Diabetes Association (ADA) provides guidance for cutoff values for fasting glucose and random glucose. The ADA defines fasting as no caloric intake for at least 8 hours. Fas ting plasma glucose results between 100 to 125 mg/dL indicate increased risk for diabetes (prediabetes). Fasting plasma glucose results greater than or equal to 126 mg/dL meet the criteria for diagnosis of diabetes. In the absence of unequivocal hyperglycemia, results should be confirmed by repeat testing. In a patient with classic symptoms of hyperglycemia or hyperglycemic crisis, random plasma glucose results greater than or equal to 200 mg/dL meet the criteria for diagnosis of diabetes. Reference: Standards of Medical Care in Diabetes 2016, [place] Diabetes Association. Diabetes Care. 2016.39(Suppl 1). LAB BUN 9-24 mg/dL BUN 18 LAB CRET 0.73-1.22 mg/dL Creatinine High 1.38 LAB NA 136-144 mmol/L Low Sodium 133 LAB K 3.7-5.1 mmol/L Potassium 5.1 LAB CL 97-105 mmol/L Low Chloride 92 LAB CO2 22-30 mmol/L CO2 22 LAB AGAP 9-18 mmol/L Anion Gap High 19 LAB ALT 10-54 U/L ALT High 60 LAB GFRAA eGFR- Amer. >60 LAB GFRNAA . eGFR-All Other Races 51 Result Comment: eGFR (Estimated GFR) Units of measure: mL/min/1.73 meters squared eGFR is derived from the reexpressed MDRD Study equation using the following parameters: serum creatinine, age, gender and race. The creatinine assay has been calibrated to be traceable to IDMS. An eGFR <60 mL/min/1.73m2 for >3 months is consistent with chronic kidney disease. Refer to KDOQI guidelines for clinical interpretation. In patients with unstable renal function, e.g. those with acute kidney injury, the eGFR may not accurately reflect actual GFR. Performed By: #### CMP, HBA1C #### [facility] [address] [place], [place] [address] HEMOGLOBIN A1C Collected: 07/31/2017 Status: F Source: [place] 4:20 PM [facility] REPOSITORY TYPE CODE TESTS RESULT OUT OF REFERENCE UNITS RANGE LAB HGBA1C 4.3-5.6 % High Hemoglobin A1c 6.0 LAB HBA0 mg/dL Est. Average Glucose 126 Result Comment: eAG: (Estimated average glucose) is a calculated value from HgbA1c and is national sales representative of the average blood glucose level in the last 2-3 month period. Performed By: #### CMP, HBA1C #### [facility] [address] [place], [place] [address] XR HAND 3V PA/LAT/OBL Observed: 07/28/2017 Status: F Source: [facility] 4:41 PM [facility] REPOSITORY * * *Final Report* * * DATE OF EXAM: Jul 28 2017 4:41PM WOX [id number] - XR HAND 3V PA/LAT/OBL IRA / PROCEDURE REASON: Unspecified acquired deformity of hand, unspecified hand * * * * Physician Interpretation * * * * EXAM:XR HAND 3V PA/LAT/OBL IRA HISTORY: Unspecified acquired deformity of hand, unspecified hand COMPARISON:None IMPRESSION: There are periarticular erosions with overhanging edge and focal soft tissue swelling involving distal interphalangeal joints of the DIP joints of the second and fifth fingers on the left and the DIP joint of the fifth finger on the right most consistent with gout. There are minimal degenerative changes in the first CMC joint bilaterally and distal interphalangeal joints bilaterally. Mineralization is normal. There is remote nonunited fracture of the right ulnar styloid. Network Desktop Support Specialist: PSCB Transcribe Date/Time: Jul 31 2017 8:33A Dictated by : MARISA DAO MD This examination was interpreted and the report reviewed and electronically signed by: MARISA DAO MD on Jul 31 2017 8:45AM EST [id number] PROGRESS Observed: 07/28/2017 Status: COMPLETED Source: [place] 4:33 PM [facility] REPOSITORY HNO ID: [id number] Author: Ginger Brewster (Rt), Tech Service: (none) Author Type: Director Of Market Analysis Type: Progress Notes Filed: 07/28/2017 4:38 PM Note Text: Radiology Service Progress Note PATIENT NAME: Max Ventura DATE OF SERVICE: July 28, 2017 TIME: 4:33 PM PATIENT IDENTITY VERIFICATION COMPLETED USING TWO (2) METHODS: Patient confirmed name verbally and Date of . PATIENT GENDER DATA: Male PATIENT RELEVANT IMPLANT DATA REVIEWED: Not Applicable RADIOLOGY DEPARTMENT: General X-ray: Exam(s) Completed: Upper Extremity X-Ray(s): Hand, bilateral : PERIPHERAL IV DATA: Not applicable SIGNED BY: RT Bisi July 28, 2017 4:33 PM PROGRESS Observed: 07/28/2017 Status: COMPLETED Source: [place] 3:54 PM [facility] REPOSITORY HNO ID: [id number] Author: Rao Islas Service: (none) Author Type: Physician Type: Progress Notes Filed: 07/28/2017 4:10 PM Note Text: Patient presents with: Blood Pressure HPI: Patient presents today for office visit for follow up. Has not followed up recently or gotten labs as ordered HTN: Patient is compliant with meds No, stopped meds on his own eight months ago. Denies side effects: No. Chest pain: Yes. Dyspnea: Yes. Edema: Yes. Palpitations: Yes. Syncope: Yes. Headache: Yes. Dizziness: Yes. Hyperglycemia: no polyuria or polydipsia. Elevated liver enzymes: no gi upset or itching. GERD: doing well without his prilosec. Has had progressive deformity of his fingers. He does have some rashes on his legs. Some pain. MEDICATIONS: Current Outpatient Prescriptions: lisinopril (ZESTRIL, PRINIVIL) 40 mg tablet Take 1 tablet by mouth once daily. (Patient not taking: Reported on 07/28/2017 ) Hydrochlorothiazide 12.5 mg capsule Take 1 capsule by mouth once daily. (Patient not taking: Reported on 07/28/2017 ) omeprazole (PRILOSEC) 20 mg capsule Take 1 capsule by mouth daily before breakfast. 1/2 hr before meal. (Patient not taking: Reported on 07/28/2017 ) No current facility-administered medications for this visit. ALLERGIES: ALLERGIES No Known Allergies PAST MEDICAL HISTORY Diagnosis Date - Hernia of abdominal cavity - HTN (hypertension) - Hyperglycemia - Tobacco abuse quit PAST SURGICAL HISTORY Procedure Laterality Date - PAST SURGICAL HISTORY OF dental work - REPAIR INCISIONAL HERNIA,REDUCIBLE Bilateral 08/26/2014 3D Max lite FAMILY HISTORY Problem Relation Age of Onset - Diabetes Mother Social History Marital status: Single Spouse name: Years of education: Number of children: 2 Social History Main Topics Smoking status: Former Smoker Packs/day: 1.00 Years: 50.00 Types: Cigarettes Quit date: 05/15/2012 Smokeless tobacco: Never Used Comment: continues nicotine gum Alcohol use: Yes 4.0 oz/week Glasses of wine: 8 per week Comment: 1bottle and 1 glass of wine daily Drug use: No Reviewed current medications, allergies, past medical history, surgical history, family history and social history today. REVIEW OF SYSTEMS All other reviewed and negative other than HPI. HEALTH MAINTENANCE: Reviewed health maintenance issues today and recommended the following in detail. FECAL OCCULT BLOOD due on 07/19/2017 VITALS: BP 150/92 Pulse 60 Resp 14 Wt 67.6 kg (149 lb) BMI 25.58 kg/m? Last 4 Encounter Wt Readings: Date: Wt: 07/28/2017 67.6 kg (149 lb) 07/18/2016 64.9 kg (143 lb) 09/09/2015 67.1 kg (148 lb) 10/14/2014 63.3 kg (139 lb 8 oz) PHYSICAL EXAMINATION: General appearance: Well appearing, alert, in no acute distress, well-hydrated, well nourished. Skin: scaly lesions of legs. Using gold arboleda. Head: Normocephalic, no masses, lesions, tenderness or abnormalities Lungs: Lungs clear to auscultation. No wheezing, rhonchi, rales Heart: RRR without murmur, gallop, or rubs. No ectopy Abdomen: Normal abdominal exam, Abdomen soft, non-tender. Bowel sounds normal. No masses, organomegaly Extremities: No deformities, edema, skin discoloration, clubbing or cyanosis. Good capillary refill. Some distal deformity of his fingers. ASSESSMENT/PLAN: 1. Essential hypertension - ICD9: 401.9, ICD10: I10 (primary diagnosis) - suboptimal control - noncompliance - Encouraged dietary sodium restriction/DASH diet - Recommended regular aerobic exercise. - Resume meds - bp check in two weeks and check labs. - Goal of BP <140/90 - COMP METABOLIC PANEL 2. Hyperglycemia - ICD9: 790.29, ICD10: R73.9 - check labs. - HGB A1C 3. Elevated liver enzymes - ICD9: 790.5, ICD10: R74.8 - recheck labs. 4. Benign hypertension - ICD9: 401.1, ICD10: I10 - HYDROCHLOROTHIAZIDE 12.5 MG CAPSULE 5. Screening for colon cancer - ICD9: V76.51, ICD10: Z12.11 - FECAL OCCULT BLOOD TEST 6. ? Psoriatic arthritis - check xray. Has used multiple creams Consider derm or rheum or both. Rao Islas MD CNOV Observed: 07/28/2017 Status: COMPLETED Source: [place] 3:00 PM [facility] REPOSITORY Office Visit (FAMPWS) MAX VENTURA ([id number]) 1950 M Date Time Provider Department 07/28/17 3:00 PM RAO ISLAS FAMPWS During your visit today, we recorded the following information about you: Pulse Respiration Blood pressure Weight 60/minute 14/minute 150/92 67.6 kg Maricruz Milton JO 07/28/2017 3:35 PM Signed Not currently taking any medications. States that when went to pharmacy they said there was no order there and he thought that maybe since BP was good at last visit he didn't need the medication anymore. Rao Islas 07/28/2017 4:10 PM Signed Patient presents with: Blood Pressure HPI: Patient presents today for office visit for follow up. Has not followed up recently or gotten labs as ordered HTN: Patient is compliant with meds No, stopped meds on his own eight months ago. Denies side effects: No. Chest pain: Yes. Dyspnea: Yes. Edema: Yes. Palpitations: Yes. Syncope: Yes. Headache: Yes. Dizziness: Yes. Hyperglycemia: no polyuria or polydipsia. Elevated liver enzymes: no gi upset or itching. GERD: doing well without his prilosec. Has had progressive deformity of his fingers. He does have some rashes on his legs. Some pain. MEDICATIONS: Current Outpatient Prescriptions: lisinopril (ZESTRIL, PRINIVIL) 40 mg tablet Take 1 tablet by mouth once daily. (Patient not taking: Reported on 07/28/2017 ) Hydrochlorothiazide 12.5 mg capsule Take 1 capsule by mouth once daily. (Patient not taking: Reported on 07/28/2017 ) omeprazole (PRILOSEC) 20 mg capsule Take 1 capsule by mouth daily before breakfast. 1/2 hr before meal. (Patient not taking: Reported on 07/28/2017 ) No current facility-administered medications for this visit. ALLERGIES: ALLERGIES No Known Allergies PAST MEDICAL HISTORY Diagnosis Date - Hernia of abdominal cavity - HTN (hypertension) - Hyperglycemia - Tobacco abuse quit PAST SURGICAL HISTORY Procedure Laterality Date - PAST SURGICAL HISTORY OF dental work - REPAIR INCISIONAL HERNIA,REDUCIBLE Bilateral 08/26/2014 3D Max lite FAMILY HISTORY Problem Relation Age of Onset - Diabetes Mother Social History Marital status: Single Spouse name: Years of education: Number of children: 2 Social History Main Topics Smoking status: Former Smoker Packs/day: 1.00 Years: 50.00 Types: Cigarettes Quit date: 05/15/2012 Smokeless tobacco: Never Used Comment: continues nicotine gum Alcohol use: Yes 4.0 oz/week Glasses of wine: 8 per week Comment: 1bottle and 1 glass of wine daily Drug use: No Reviewed current medications, allergies, past medical history, surgical history, family history and social history today. REVIEW OF SYSTEMS All other reviewed and negative other than HPI. HEALTH MAINTENANCE: Reviewed health maintenance issues today and recommended the following in detail. FECAL OCCULT BLOOD due on 07/19/2017 VITALS: BP 150/92 Pulse 60 Resp 14 Wt 67.6 kg (149 lb) BMI 25.58 kg/m? Last 4 Encounter Wt Readings: Date: Wt: 07/28/2017 67.6 kg (149 lb) 07/18/2016 64.9 kg (143 lb) 09/09/2015 67.1 kg (148 lb) 10/14/2014 63.3 kg (139 lb 8 oz) PHYSICAL EXAMINATION: General appearance: Well appearing, alert, in no acute distress, well-hydrated, well nourished. Skin: scaly lesions of legs. Using gold arboleda. Head: Normocephalic, no masses, lesions, tenderness or abnormalities Lungs: Lungs clear to auscultation. No wheezing, rhonchi, rales Heart: RRR without murmur, gallop, or rubs. No ectopy Abdomen: Normal abdominal exam, Abdomen soft, non-tender. Bowel sounds normal. No masses, organomegaly Extremities: No deformities, edema, skin discoloration, clubbing or cyanosis. Good capillary refill. Some distal deformity of his fingers. ASSESSMENT/PLAN: 1. Essential hypertension - ICD9: 401.9, ICD10: I10 (primary diagnosis) - suboptimal control - noncompliance - Encouraged dietary sodium restriction/DASH diet - Recommended regular aerobic exercise. - Resume meds - bp check in two weeks and check labs. - Goal of BP <140/90 - COMP METABOLIC PANEL 2. Hyperglycemia - ICD9: 790.29, ICD10: R73.9 - check labs. - HGB A1C 3. Elevated liver enzymes - ICD9: 790.5, ICD10: R74.8 - recheck labs. 4. Benign hypertension - ICD9: 401.1, ICD10: I10 - HYDROCHLOROTHIAZIDE 12.5 MG CAPSULE 5. Screening for colon cancer - ICD9: V76.51, ICD10: Z12.11 - FECAL OCCULT BLOOD TEST 6. ? Psoriatic arthritis - check xray. Has used multiple creams Consider derm or rheum or both. Rao Islas MD Referring Provider: SELF [200] Allergies As of Date: 07/28/2017 (No Known Allergies) Date Reviewed: 09/09/2015 Reviewed by: Kelsi Arellano LPN - Fully Assessed Reason for Visit: Blood Pressure [15] Primary Visit Diagnosis:Essential hypertension [I10] Other Visit Diagnoses:Hyperglycemia [R73.9] Elevated liver enzymes [R74.8] Benign hypertension [I10] Screening for colon cancer [Z12.11] Deformity of hand, unspecified laterality [M21.949] Dermatitis [L30.9] Order(s):COMP METABOLIC PANEL [SQCMP] Order #: [id number] FUTURE HGB A1C [BXFPE3U] Order #: [id number] FUTURE lisinopril (ZESTRIL, PRINIVIL) 40 mg tabletTake 1 tablet by mouth once daily.Disp: 30 tabletRfl: 5 Hydrochlorothiazide 12.5 mg capsuleTake 1 capsule by mouth once daily.Disp: 30 capsuleRfl: 5 FECAL OCCULT BLOOD TEST [SQIFOBT] Order #: [id number] FUTURE XR HAND GENERAL 3V PA/LAT/OBL BILAT [[id number]] Order #: [id number] FUTURE Prescriptions as of 07/28/2017 Sig: LISINOPRIL 40 MG TABLET Take 1 tablet by mouth once d* HYDROCHLOROTHIAZIDE 12.5 MG C* Take 1 capsule by mouth once * Problem List As Of Date 07/28/2017 Noted Resolved 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 States that when went to pharmacy they said there was no order there and he thought that maybe since BP was good at last visit he didn't need the medication anymore. Prescriptions ordered this encounter Disp Refills Start End LISINOPRIL 40 MG TABLET 30 t* 5 07/28/2017 Route: ORAL Sig: Take 1 tablet by mouth once daily. HYDROCHLOROTHIAZIDE 12.5 MG CAPSULE 30 c* 5 07/28/2017 Route: ORAL Sig: Take 1 capsule by mouth once daily. Medications Discontinued During This Encounter omeprazole (PRILOSEC) 20 mg capsule 30 c* 1 07/18/2016 07/28/2017 Route: ORAL Sig: Take 1 capsule by mouth daily before breakfast. 1/2 hr before meal. Patient not taking: Reported on 07/28/2017 Disc: Reason for discontinue is not on file. lisinopril (ZESTRIL, PRINIVIL) 40 mg* 30 t* 3 11/14/2016 07/28/2017 Route: ORAL Sig: Take 1 tablet by mouth once daily. Patient not taking: Reported on 07/28/2017 Disc: Reason for discontinue is not on file. Hydrochlorothiazide 12.5 mg capsule 30 c* 12 08/08/2016 07/28/2017 Class: Med Update Route: ORAL Sig: Take 1 capsule by mouth once daily. Patient not taking: Reported on 07/28/2017 Disc: Reason for discontinue is not on file. Disposition: Return in about 6 months (around 01/28/2018). Follow-up and Disposition History Recorded Encounter Status:Closed by RAO ISLAS MD on 07/28/17 ALLERGIES ALLERGIES DATE TYPE / CODE NAME / CODE REACTION SEVERITY SOURCE Drug NO KNOWN [facility] Class/40860 ALLERGIES [place] 1003(SNOMED Repository CT) ENCOUNTERS ENCOUNTERS ADMIT/DISCHARGE ACCOUNT ADMITTING ENCOUNTER LOCATION SOURCE NUMBER CLASS 03/13/2018 [id number] Ambulatory [facility] ing:MTLAB Repository 12/11/2017/12/12/19 [id number] Ambulatory [address] Repository 12/11/2017/12/12/19 [id number] Ambulatory [address] Repository 12/11/2017/12/13/19 [id number] Ambulatory [address] Repository 11/14/2017/11/16/19 [id number] Ambulatory [address] Repository 10/30/2017/11/01/19 [id number] Ambulatory [address] [place] Repository 10/23/2017/10/25/19 [id number] Ambulatory [address] Repository 10/19/2017/10/20/19 [id number] Ambulatory [address] Repository 10/19/2017/10/21/19 [id number] Ambulatory [address] Repository 09/13/2017/09/14/19 [id number] Ambulatory [address] Repository 08/04/2017/08/05/19 [id number] Ambulatory [address] Repository 07/31/2017 [id number] Ambulatory [facility] Repository 07/28/2017/07/29/19 [id number] Ambulatory [address] Repository 07/28/2017/08/01/19 [id number] Ambulatory [address] Repository PAYERS PAYERS ENCOUNTER GUARANTOR PAYER SUBSCRIBER SOURCE 03/13/2018 HOMAYOON Primary HOMAYOON Megan [id number] Insurance:MEDICARE NAYEBZADEHDOB: [facility] PART A [facility] [id number] Number: Repository [id number]: [phone] [id number] [phone] () Date:2018-03-13 03/13/2018 Secondary NOT GIVENUNK [place] Insurance:SELF PAY [facility]: Effective Repository Date:2018-03-13
== END ==
PROVIDERS: Family Provider Family Medicine; PCP Family Medicine; Referring Provider Internal Medicine Rheumatology; Visit Provider Internal Medicine Rheumatology
DX: L40.59 Other psoriatic arthropathy (principal)
CPT/HCPCS: 36415; 80053; 81374; 85025; 85652; 86140; 86200; 86431; 86480; 86706; 86803; 87340

== ENCOUNTER → 2018-05-28 15:42 | Outpatient (CLI) | payer MEDICARE, SELFPAY ==
[2018-05-28 17:44] LABS: Absolute Lymphocyte Count 2.01 X10^3/ul (0.83-4.51); Absolute Neutrophil Count 4.5 X10^3/uL (2.0-7.7); Basophil# 0.03 X10^3/uL; Basophil% 0.4 % (0-1); Eosinophils% 2.7 % (0-5); Hematocrit 38.6 % (40-54); Hemoglobin 12.3 g/dl (13.0-16.5); Lymphocyte # 2.01 X10^3/ul (4.0); Lymphocyte % 26.9 % (19-41); Mean Corp Hgb Conc 31.9 g/gl (32-36); Mean Corpuscular Hgb 21.1 pg (27.0-32.0); Mean Corpuscular Volume 66.2 fL (80-94); Mean Platelet Vol. 10.4 fl (6.2-12.0); Monocyte# 0.72 X10^3/uL; Monocyte% 9.7 % (0-10); Neutrophil # 4.49 X10^3/uL (2.7-7.7); Neutrophil % 60.2 % (47-70); POSITIVE COUNT NO; POSITIVE DIFFERENTIAL NO; POSITIVE MORPHOLOGY NO; Platelet Count 317 K/mm3 (150-450); RBC Distribution Width SD 37.7 fl (35.1-43.9); Red Blood Count 5.83 M/mm3 (4.6-6.2); White Blood Count 7.5 K/mm3 (4.4-11.0)
[2018-05-28 18:08] LABS: ALB/GLOB Ratio 0.9 RATIO (0.9-2.4); AST(SGOT) 32 U/L (15-37); Alanine Aminotransfer ALT/SGPT 40 U/L (16-61); Albumin, Serum 3.8 g/dL (3.2-5.0); Alkaline Phosphatase 87 U/L (45-117); Anion Gap 10 (5-15); BUN 21 mg/dL (7-18); BUN/Creat Ratio 18.3 RATIO (10-20); Calcium,Total 8.8 mg/dL (8.5-10.1); Chloride 100 mmol/L (98-107); Creatinine, Serum 1.15 mg/dL (0.70-1.30); EST Glomerular Filtration Rate 67 mL/min (>60); Est Glom Filt Rate - Afr Amer 81 mL/min (>60); Globulin 4.2 g/dL (2.2-4.2); Glucose 72 mg/dL (74-106); Potassium 3.8 mmol/L (3.5-5.1); Sodium Level 139 mmol/L (136-145)
== END ==
PROVIDERS: Family Provider Family Medicine; PCP Family Medicine; Referring Provider Internal Medicine Rheumatology; Visit Provider Internal Medicine Rheumatology
DX: L40.59 Other psoriatic arthropathy (principal); L40.8 Other psoriasis; Z79.899 Other long term (current) drug therapy
CPT/HCPCS: 36415; 80053; 85025

== ENCOUNTER → 2018-11-16 13:48 | Outpatient (CLI) | payer MEDICARE, SELFPAY ==
[2018-11-16 15:48] LABS: Basophil# 0.03 X10^3/uL; Basophil% 0.5 % (0-1); Eosinophil# 0.21 X10^3/uL; Eosinophils% 3.2 % (0-5); Hematocrit 35.7 % (40-54); Lymphocyte % 29.3 % (19-41); Mean Corp Hgb Conc 30.8 g/dL (32-36); Mean Corpuscular Hgb 21.2 pg (27.0-32.0); Mean Corpuscular Volume 68.8 fL (80-94); Mean Platelet Vol. 10.7 fl (6.2-12.0); Monocyte# 0.38 X10^3/uL; Monocyte% 5.9 % (0-10); NRBC Flagged by Analyzer 0 % (0-5); Neutrophil # 3.96 X10^3/uL (2.7-7.7); Neutrophil % 60.9 % (47-70); Platelet Count 263 K/mm3 (150-450); RBC Distribution Width CV 16.6 % (11.6-14.6); RBC Distribution Width SD 39.6 fl (35.1-43.9); Red Blood Count 5.19 M/mm3 (4.6-6.2); White Blood Count 6.5 K/mm3 (4.4-11.0)
[2018-11-16 16:01] LABS: ALB/GLOB Ratio 0.8 RATIO (0.9-2.4); AST(SGOT) 27 U/L (15-37); Alanine Aminotransfer ALT/SGPT 36 U/L (16-61); Albumin, Serum 3.4 g/dL (3.2-5.0); Alkaline Phosphatase 92 U/L (45-117); Anion Gap 6 (5-15); BUN 15 mg/dL (7-18); BUN/Creat Ratio 15.2 RATIO (10-20); Bilirubin, Direct 0.06 mg/dL (0.00-0.30); Calcium,Total 8.3 mg/dL (8.5-10.1); Chloride 103 mmol/L (98-107); Creatinine, Serum 0.99 mg/dL (0.70-1.30); EST Glomerular Filtration Rate 80 mL/min (>60); Est Glom Filt Rate - Afr Amer 97 mL/min (>60); Glucose 133 mg/dL (74-106); Potassium 3.6 mmol/L (3.5-5.1); Protein, Total 7.4 g/dL (6.4-8.2); Sodium Level 137 mmol/L (136-145)
== END ==
PROVIDERS: Family Provider Family Medicine; PCP Family Medicine; Referring Provider Internal Medicine Rheumatology; Visit Provider Internal Medicine Rheumatology
DX: L40.59 Other psoriatic arthropathy (principal); R76.11 Nonspecific reaction to tuberculin skin test without active tuberculosis; Z79.899 Other long term (current) drug therapy
CPT/HCPCS: 36415; 80053; 82248; 85025

== ENCOUNTER → 2019-02-14 08:15 | Outpatient (CLI) | payer MEDICARE, SELFPAY ==
[2019-02-14 10:00] LABS: Absolute Lymphocyte Count 1.76 X10^3/uL (0.83-4.51); Basophil# 0.04 X10^3/uL; Basophil% 0.5 % (0-1); Eosinophil# 0.14 X10^3/uL; Eosinophils% 1.8 % (0-5); Hematocrit 37.4 % (40-54); Hemoglobin 11.3 g/dL (13.0-16.5); Lymphocyte # 1.76 X10^3/ul (4.0); Lymphocyte % 23.1 % (19-41); Mean Corp Hgb Conc 30.2 g/dL (32-36); Mean Corpuscular Hgb 21.5 pg (27.0-32.0); Mean Corpuscular Volume 71.1 fL (80-94); Mean Platelet Vol. 9.9 fl (6.2-12.0); Monocyte% 9.2 % (0-10); NRBC Flagged by Analyzer 0 % (0-5); Neutrophil # 4.95 X10^3/uL (2.7-7.7); Neutrophil % 65.1 % (47-70); Platelet Count 276 K/mm3 (150-450); RBC Distribution Width CV 17.9 % (11.6-14.6); RBC Distribution Width SD 43.4 fl (35.1-43.9); Red Blood Count 5.26 M/mm3 (4.6-6.2); White Blood Count 7.6 K/mm3 (4.4-11.0)
[2019-02-14 10:32] LABS: AST(SGOT) 31 U/L (15-37); Alanine Aminotransfer ALT/SGPT 42 U/L (16-61); Albumin, Serum 3.8 g/dL (3.2-5.0); Alkaline Phosphatase 85 U/L (45-117); Anion Gap 7 (5-15); BUN 16 mg/dL (7-18); BUN/Creat Ratio 16.6 RATIO (10-20); Bilirubin, Direct 0.07 mg/dL (0.00-0.30); Calcium,Total 8.9 mg/dL (8.5-10.1); Chloride 101 mmol/L (98-107); Creatinine, Serum 0.96 mg/dL (0.70-1.30); EST Glomerular Filtration Rate 82 mL/min (>60); Est Glom Filt Rate - Afr Amer 100 mL/min (>60); Globulin 3.9 g/dL (2.2-4.2); Glucose 146 mg/dL (74-106); Potassium 3.7 mmol/L (3.5-5.1); Protein, Total 7.7 g/dL (6.4-8.2); Sodium Level 136 mmol/L (136-145)
== END ==
PROVIDERS: Family Provider Family Medicine; PCP Family Medicine; Referring Provider Internal Medicine Rheumatology; Visit Provider Internal Medicine Rheumatology
DX: L40.59 Other psoriatic arthropathy (principal); Z22.7 Latent tuberculosis; Z79.899 Other long term (current) drug therapy
CPT/HCPCS: 36415; 80053; 82248; 85025

== ENCOUNTER 2021-08-13 11:35 | Emergency (ER) | payer MEDICARE, SELFPAY ==
[2021-08-13 11:37] VITALS: BP 165/82; PULSE 74; RESP 18; TEMP 36.5; O2SAT 93; BMI 24.0
--- NOTE | 2021-08-13 12:43 | EDS_ITS ---
HPI History of Present Illness Chief Complaint: Other, Pain/Inj Detail of Chief Complaint: rectal swelling & bleeding Informant: patient and other Onset/Context/Timing Onset: Yesterday Timing: Continuous Quality: sore Location: rectum/anus Current Severity: Mild Maximum Severity: Mild Worsened by: having BM Relieved by: pushing back in except now Associated Symptoms Associated Symptoms: none Narrative Narrative: Patient states he went to urgent care because of minor bleeding and swelling in the perianal area. 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 Patient tells me he has had this occur for years intermittently. States he was diagnosed with a hemorrhoid there, has seen Dr. Santos, he told him he would put a rubber band around it. He states he usually can push it back in with no problem but since yesterday he has been unable. That is the only thing that is different about this. He denies any known history of cancer. He denies having abdominal pain, constipation recently, nausea, vomiting, or any other acute complaints. The bleeding that he had was minor, on the toilet paper and underwear. PFSH PFS Medical History Hypertension Allergy/AdvReac Type Severity Reaction Status Date / Time No Known Allergies Allergy Verified 08/13/21 11:36 Surgical History H/O hernia repair Social History Smoking Status: Never smoker ROS ROS ED Constitutional Constitutional ED: Denies chills or fever(s) Eyes Eyes: Denies change in vision or diplopia ENT ENT ED: Denies rhinorrhea or sore throat Cardiovascular Cardiovascular: Denies chest pain or palpitations Respiratory/Chest Respiratory/Chest: Denies cough or dyspnea Gastrointestinal Gastrointestinal: Reports as per HPI, hemorrhoids and rectal bleeding; Denies abdominal pain, diarrhea, nausea or vomiting Genitourinary Genitourinary ED: Denies dysuria or hematuria Musculoskeletal Musculoskeletal: Denies back pain or neck pain Integumentary Denies abscess or rash Neurologic Neurologic: Denies headache(s), paresthesias or weakness Psychiatric Psychiatric: Denies anxiety or suicidal thoughts EXAM Physical Exam Const Vital Signs: 08/13/21 11:37 08/13/21 16:13 Temperature 97.7 F L Temperature Source Temporal Pulse Rate 74 85 Respiratory Rate 18 20 H Blood Pressure 165/82 H 158/88 H Blood Pressure Mean 109 111 Pulse Ox 93 98 Oxygen Delivery Method Room Air Room Air Positive well nourished and well developed General Appearance ED: well developed and NAD HEENT Reports moist mucous membranes normocephalic and atraumatic Eyes PERRL and EOMs intact bilaterally Neck full ROM and supple Resp normal respiratory effort and clear to auscultation bilaterally Cardio regular rate, regular rhythm and no murmurs GI non-tender and non-distended GI Narrative: On rectal exam, there is no active bleeding, there appears to be a mild rectal prolapse with several prolapsed internal hemorrhoids present. The entire complex is mildly tender. Auscultation: normoactive bowel sounds Palpation: soft Back/Spine no CVA tenderness General Back: other FROM Extremity normal to inspection General Extremety ED: Negative for edema, pulses abnormal or tenderness General Extremity: Negative for edema or pulses abnormal Neuro oriented x3, CN's II-XII intact bilaterally and no sensory deficits noted Sensorium / Orientation: awake and alert Motor Exam: strength 5/5 throughout Skin no rashes or lesions noted and no wounds MDM MDM MDM Narrative Medical decision making narrative: I caked the patient's rectum and sugar for about half an hour and then on reevaluation wiped it off and attempted to reduce the prolapsed contents, without success. There is no active bleeding, just seeping of small amount of blood from part of the mucosa. Nothing appears to be necrotic or infected. All diffusely mildly tender. Difficult to tell if this is simply prolapse, or if it is multiple prolapsed hemorrhoids. Discussed with surgery for evaluation. Dr. Lopez saw him in the emergency department and was able to get it reduced and agreed that it was combination of partial rectal prolapse and internal hemorrhoids without any obvious mass, although external exam is not enough to definitively rule this out, the patient states that he had a scope recently and it was unremarkable, making a mass much less likely. Patient went to the bathroom, he also coughed, the reduction held and did not recur so she was okay letting him go home and follow-up as an outpatient with Dr. Santos, and called in a compounded suppository for him. Discharge Plan Triage Chief Complaint: Other, Pain/Inj ED Provider: Carlos Chavira Dx/Rx/DC Orders Clinical Impression: Incomplete rectal prolapse, Hemorrhoids, internal Instructions: ED Hemorrhoids, ED Rectal Prolapse Primary Care Provider: Abhijeet Islas Referrals: Francis Santos MD [STAFF PHYSICIAN] - 1 Week if not improving Abhijeet Islas [Primary Care Provider] - Activity Restrictions/Additional Instructions: Compounded suppositories called into the [facility] pharmacy. Disposition Disposition: Home, Self Care
[2021-08-13 16:13] VITALS: BP 158/88; PULSE 85; RESP 20; O2SAT 98
--- NOTE | 2021-08-13 17:34 | EX.PCM.CON.S ---
Assessment & Plan Assessment/Plan (1) Incomplete rectal prolapse: (2) Hemorrhoids, internal: PLAN: Rectal prolapse was able to be reduced with pressure. Pt did also have some internal hemorrhoids- called compound hydrocortisone/lidocaine suppositories to [facility] retail pharmacy. D/w pt he can f/u with Dr. Santos, but may be referred to colorectal if the rectal prolapse continues to be an issue. Pt had no further questions at this time- was able to walk around and use restroom/sat on toilet and it stayed reduced. Will d/c home from ER. d/w Dr. Chavira. Radha Lopez M.D. Pager: [phone] [facility] [address] [place] [address], [facility], [address] [place] [address] Office: [phone] HPI Consult Data Date of Consult: 08/14/21 HPI Narrative HPI Narrative: MAX VENTURA, is a 71 M who presents initially presented to urgent care who sent him to the ER due to rectal prolapse. Patient states at 3 AM he went to use the restroom and was unable to reduce the tissue. Patient presented to urgent care/ER due to rectal pain. Patient states he was having some loose stools that day but denies really straining or normally straining or being constipated. Patient states he had a colonoscopy by Dr. Santos about 2 years ago which was normal just showed some small internal hemorrhoids. Patient states he does occasionally have a hemorrhoid that he is able to push back in however this is only about pea-sized. [facility] Medical History Hypertension Allergy/AdvReac Type Severity Reaction Status Date / Time No Known Allergies Allergy Verified 08/13/21 11:36 Surgical History H/O hernia repair Social History Smoking Status: Never smoker ROS Constitutional Constitutional: Denies anorexia or chills ENT HEENT: Denies dizziness Cardiovascular Cardiovascular: Denies chest pain Respiratory/Chest Respiratory/Chest: Denies shortness of breath at rest Gastrointestinal Gastrointestinal: Reports diarrhea, hemorrhoids and other Details: Protruding hemorrhoids/rectal tissue ; Denies abdominal pain, constipation, heartburn, hematemesis or melena Genitourinary Genitourinary: Denies burning urination Musculoskeletal Musculoskeletal: Denies joint pain Integumentary Integumentary: Denies rash Neurologic Neurologic: Denies abnormal gait, abnormal hearing, focal weakness, paresthesias or sensory deficit Endocrine Endocrinology: Denies palpitations Hematologic/Lymphatic Hematologic/Lymphatic: Denies anemia, easy bleeding or easy bruising Physical Exam Const alert, oriented x3 and no apparent distress HEENT normocephalic and head/scalp atraumatic Resp normal respiratory effort Cardio regular rate GI soft to palpation; Negative for non-distended GI Narrative: KEYUR: Patient does have prolapse rectal mucosa only a few centimeters in length?very tender. Previously ER doctor did try to place sugar to help reduce the edema but unable to get to reduce. With pressures able to get this area to reduce it did initially pop back out however today reduced again and it did not come back out. Patient also appears to have some internal hemorrhoids on exam as well along with the rectal prolapse. Palpation: Negative for tender or guarding Extremity no clubbing, cyanosis or edema Neuro CN's II-XII intact bilaterally Psych mental status grossly normal Charges/Coding Visit Charges Inpatient E&M: 54270 Init Hosp L3
== END 2021-08-13 17:10 | disposition home or self-care (01) ==
PROVIDERS: Emergency Provider Emergency Medicine; Visit Provider Emergency Medicine
DX: K62.3 Rectal prolapse (principal); K64.8 Other hemorrhoids
CPT/HCPCS: 99282

== ENCOUNTER 2023-05-21 16:26 | Emergency (ER) | payer MEDICARE, SELFPAY ==
[2023-05-21 16:27] VITALS: BP 149/87; PULSE 67; RESP 14; TEMP 36.6; O2SAT 97; BMI 26.1
--- NOTE | 2023-05-21 16:37 | EKG12_ITS ---
Test Reason : DIZZINESS Blood Pressure : / mmHG Vent. Rate : 068 BPM Atrial Rate : 068 BPM P-R Int : 176 ms QRS Dur : 076 ms QT Int : 380 ms P-R-T Axes : 044 -27 012 degrees QTc Int : 404 ms Sinus rhythm with occasional Premature ventricular complexes Otherwise normal ECG Confirmed by NIRMAL BANDA, [place] ([id number]), order editor GANGA JULES ([id number]) on 05/29/2023 9:43:49 AM Referred By: Confirmed By:FREEDOM KINNEY MD
--- NOTE | 2023-05-21 16:39 | CT_ITS ---
INDICATION: vertigo EXAMINATION: CT BRAIN WITH CONTRAST TECHNIQUE: Noncontrast axial images were obtained of the brain. Subsequently, routine carotid CT angiogram protocol was performed without and with IV contrast. In addition, images were obtained of the [place]. NASCET criteria using the distal ICAs for comparison were used for evaluation of stenoses. 3D reconstructions were reviewed. A radiation dose optimization technique was used for this scan. IV Contrast dosage and agent: 100 cc [id number] COMPARISON: None. FINDINGS: --CT BRAIN: BRAIN PARENCHYMA: No intra- or extra-axial hemorrhage. No evidence of acute infarct. No intracranial mass or mass effect. There is preservation of the clements/white matter interface. Posterior fossa structures are unremarkable. Volume loss with low attenuation of the periventricular white matter typical of chronic small vessel disease. CSF SPACES: Appropriate for age. No hydrocephalus. Basal cisterns are patent. CALVARIUM, SKULL BASE, PARANASAL SINUSES AND MASTOID AIR CELLS: Scattered minimal mucoperiosteal thickening. No discrete lytic or blastic abnormalities. --CTA NECK: AORTIC ARCH AND BRANCHES: Vessel origins patent. RIGHT CCA: No occlusion, significant stenosis or dissection. RIGHT ICA: No occlusion, significant stenosis or dissection. LEFT CCA: No occlusion, significant stenosis or dissection. LEFT ICA: No occlusion, significant stenosis or dissection. RIGHT VERTEBRAL ARTERY: No occlusion, significant stenosis or dissection. LEFT VERTEBRAL ARTERY: No occlusion, significant stenosis or dissection. NECK SOFT TISSUES: Unremarkable. --CTA HEAD: --Anterior circulation: ICAs: No significant stenosis at the intracranial/visualized segments. ACAs: No significant stenosis at the visualized segments. ACOM: Present. MCAs: No significant stenosis at the visualized segments. --Posterior circulation: PCOMs: Patent on the left. viscose department worker: No significant stenosis at the visualized segments. BASILAR ARTERY: No significant stenosis. VERTEBRAL ARTERIES: No significant stenosis at the intradural/visualized segments. No evidence of intracranial aneurysm or vascular malformation. CT/CTA Head AND Neck W/ Contrast IMPRESSION: Negative CT Brain, CTA Carotid, and CTA Brain. Electronically Signed: Nikolai Lazaro MD at 18:52 EST ,
--- NOTE | 2023-05-21 16:40 | EX.ED.DYSGE1 ---
HPI <IVONNE Nam - Last Filed: 05/21/23 19:27> History of Present Illness Chief Complaint: Dizziness Narrative Narrative: 72-year-old male with past medical history of hypertension states he woke up at 11:30 AM and was dizzy. He describes it as a sensation his head is moving and tight. It is worse with walking. He does not feel like the room is moving. He does not feel presyncopal. He has no vision changes, nausea or vomiting, chest pain or shortness of breath. No history of similar symptoms. No history of TIA/CVA. Denies headache, visual changes, or focal motor or sensory changes. He does not take aspirin or blood thinners. PFSH <IVONNE Nam - Last Filed: 05/21/23 19:27> [facility] Medical History (Updated 05/21/23 @ 19:20 by IVONNE Nam) Hypertension Home Medications Unobtainable 05/21/23 [History Last Taken Unknown] Allergy/AdvReac Type Severity Reaction Status Date / Time No Known Allergies Allergy Verified 05/21/23 16:29 Surgical History H/O hernia repair Social History (System 05/18/23 @ 11:29 by Cristina Agrawal) Smoking Status: Never smoker ROS <IVONNE Nam - Last Filed: 05/21/23 19:27> ROS ED ROS Narrative Constitutional: Negative for fever, chills, malaise. Eyes: Negative for visual change. CVS: Negative for palpitations, chest pain, syncope. Respiratory: Negative for shortness of breath. GI: Negative for abdominal pain, nausea, vomiting. Neuro: Negative for headache. EXAM <IVONNE Nam - Last Filed: 05/21/23 19:27> Physical Exam Narrative Exam Narrative: CONST: Patient sitting in no acute distress. EYES: Normal inspection. PERRL, EOMI, 3 beat horizontal nystagmus. ENT: Normal inspection, moist mucous membranes. Normal TMs bilaterally. NECK: Normal inspection. RESP: No respiratory distress, CTAB. CVS: Regular rate and rhythm, no murmur, no gallop. ABD: Soft and nontender, no guarding or rebound, nondistended. SKIN: Color normal, no rash, warm, dry, intact. EXTREMITIES: Normal appearance, no pedal edema. NEURO: Oriented x4. Face symmetric, no upper or lower extremity drift, 5/5 strength, normal sensation, normal lvnrgj-vv-teft and qawc-nf-pmpy, normal gait, no dysarthria or aphasia. NIH = 0. PSYCH: Normal affect. Const Vital Signs: 05/21/23 16:27 05/21/23 16:38 05/21/23 18:17 Temperature 97.8 F Temperature Source Temporal Pulse Rate 67 59 L Respiratory Rate 14 18 Respiratory Effort Normal Respiratory Pattern Normal Blood Pressure 149/87 H 143/74 H Blood Pressure Mean 107 97 Pulse Ox 97 97 Oxygen Delivery Method Room Air Room Air 05/21/23 19:10 05/21/23 19:25 Temperature 98.1 F 98.1 F Temperature Source Oral Pulse Rate 53 L 58 L Respiratory Rate 18 16 Respiratory Effort Respiratory Pattern Blood Pressure 149/68 H 155/78 H Blood Pressure Mean 95 103 Pulse Ox 97 98 Oxygen Delivery Method Room Air <Dr. Carlos Chavira MD - Last Filed: 05/21/23 19:35> Physical Exam Const Vital Signs: 05/21/23 16:27 05/21/23 16:38 05/21/23 18:17 Temperature 97.8 F Temperature Source Temporal Pulse Rate 67 59 L Respiratory Rate 14 18 Respiratory Effort Normal Respiratory Pattern Normal Blood Pressure 149/87 H 143/74 H Blood Pressure Mean 107 97 Pulse Ox 97 97 Oxygen Delivery Method Room Air Room Air 05/21/23 19:10 05/21/23 19:25 Temperature 98.1 F 98.1 F Temperature Source Oral Pulse Rate 53 L 58 L Respiratory Rate 18 16 Respiratory Effort Respiratory Pattern Blood Pressure 149/68 H 155/78 H Blood Pressure Mean 95 103 Pulse Ox 97 98 Oxygen Delivery Method Room Air MDM <IVONNE Nam - Last Filed: 05/21/23 19:27> [facility] MDM Narrative Medical decision making narrative: Patient has sensation of head movement and disequilibrium with walking today. He appears well and nontoxic. Vital signs stable. He has horizontal nystagmus, normal neurological exam, NIH 0. His symptoms are not reproducible with head movement or walking. He has normal gait. CBC and CMP are unremarkable. There is mild anemia at 12.7 is higher than previous. EKG is sinus rhythm with occasional PVCs. CTA head/neck shows no acute process. Patient has remained asymptomatic during his 3-hour ED stay. Repeat neuroexam is normal. I recommended admission for MRI and stroke rule out since his symptoms are not clearly reproducible or peripheral. He would like to go home and call his PCP. He is leaving AGAINST MEDICAL ADVICE. I thoroughly discussed risks including possibility this could be a TIA, CVA, he could have recurrent symptoms and permanent disability or . He expressed understanding and was discharged in stable condition. Lab Data Attestation: I reviewed the patient's lab results. Labs: Laboratory Results - last 24 hr 05/21/23 16:37 WBC 7.5 RBC 6.27 H Hgb 12.7 L Hct 42.7 MCV 68.1 L MCH 20.3 L MCHC 29.7 L RDW Std Deviation 39.1 RDW Coeff of Michael 17.5 H Plt Count 251 MPV 9.6 Immature Gran % (Auto) 0.300 Neut % (Auto) 58.9 Lymph % (Auto) 28.5 Hancock % (Auto) 9.3 Eos % (Auto) 2.3 Baso % (Auto) 0.7 Absolute Neuts (auto) 4.4 Absolute Lymphs (auto) 2.12 Nucleated RBC % 0 Sodium 137 Potassium 3.9 Chloride 105 Carbon Dioxide 27.0 Anion Gap 5 BUN 9 Creatinine 1.07 Estim Creat Clear Calc 53.49 Est GFR (MDRD) Af Amer 87 Est GFR (MDRD) Non-Af 72 BUN/Creatinine Ratio 8.4 L Glucose 132 H Calcium 9.2 Total Bilirubin 0.40 AST 29 ALT 36 Alkaline Phosphatase 129 H Total Protein 8.0 Albumin 3.8 Globulin 4.2 Albumin/Globulin Ratio 0.9 Radiography Diagnostic Testing: Clinical Impression(s) from Imaging Studies Head/Neck CTA 05/21/23 16:39 IMPRESSION: Negative CT Brain, CTA Carotid, and CTA Brain. Electronically Signed: Nikolai Lazaro MD at 18:52 EST , Chest X-Ray 05/21/23 16:45 IMPRESSION: No radiographic evidence of acute cardiopulmonary disease. Electronically Signed: Nikolai Lazaro MD at 18:33 EST Reading Location ID and State: [facility] / [place] Tel , Service support , EKG Initial EKG: Attestation: I personally reviewed and interpreted this EKG as follows: Interpretation: Sinus Rhythm and No Acute Injury Pattern Comments: Sinus rhythm with occasional PVCs at 68 bpm No acute ischemic changes <Dr. Carlos Chavira MD - Last Filed: 05/21/23 19:35> MDM Lab Data Labs: Laboratory Results - last 24 hr 05/21/23 16:37 WBC 7.5 RBC 6.27 H Hgb 12.7 L Hct 42.7 MCV 68.1 L MCH 20.3 L MCHC 29.7 L RDW Std Deviation 39.1 RDW Coeff of Michael 17.5 H Plt Count 251 MPV 9.6 Immature Gran % (Auto) 0.300 Neut % (Auto) 58.9 Lymph % (Auto) 28.5 Hancock % (Auto) 9.3 Eos % (Auto) 2.3 Baso % (Auto) 0.7 Absolute Neuts (auto) 4.4 Absolute Lymphs (auto) 2.12 Nucleated RBC % 0 Sodium 137 Potassium 3.9 Chloride 105 Carbon Dioxide 27.0 Anion Gap 5 BUN 9 Creatinine 1.07 Estim Creat Clear Calc 53.49 Est GFR (MDRD) Af Amer 87 Est GFR (MDRD) Non-Af 72 BUN/Creatinine Ratio 8.4 L Glucose 132 H Calcium 9.2 Total Bilirubin 0.40 AST 29 ALT 36 Alkaline Phosphatase 129 H Total Protein 8.0 Albumin 3.8 Globulin 4.2 Albumin/Globulin Ratio 0.9 Radiography Diagnostic Testing: Clinical Impression(s) from Imaging Studies Head/Neck CTA 05/21/23 16:39 IMPRESSION: Negative CT Brain, CTA Carotid, and CTA Brain. Electronically Signed: Nikolai Lazaro MD at 18:52 EST Reading Location ID and State: [facility] / [place] Tel , Service support , Chest X-Ray 05/21/23 16:45 IMPRESSION: No radiographic evidence of acute cardiopulmonary disease. Electronically Signed: Nikolai Lazaro MD at 18:33 EST , Treatment and Re-Evaluation Comments:: I have personally performed a face to face assessment of the patient and have reviewed the AMINA Note. I performed a substantive portion of the visit including all aspects of the following. My taylor findings include: History is after getting up this morning and going into the kitchen, at 1 point he suddenly noticed some mild disequilibrium but not johnson spinning/vertigo. No nausea, headache, tinnitus, recent earache/URI. No peripheral neurologic symptoms. No confusion. No fall or injury. Symptoms resolved, he took a nap, and upon getting out of bed noticed the symptoms returning and have been persistent although mild. Worse with moving head. Never had this before. Exam is normal peripheral neurologic exam, normal flfnmv-[id number]-zcsb and ehch-pc-pzho bilaterally, NIHSS 0. Normal TMs bilaterally. Normal eye exam no vertical or rotatory nystagmus. Jolt test is normal but patient asymptomatic at the time. Medical Decison Making etiologies of both peripheral and central vertigo are in the differential. His blood pressure is a little elevated but not excessively so at 149/87. CT/CTA reasonable, patient asymptomatic at rest at the time, not a candidate for thrombolytics, and not likely to have LVO so no stroke alert necessary or indicated. Other additions or changes: [None] Discharge Plan Triage Chief Complaint: Dizziness ED Midlevel Provider: Namrata Herron ED Provider: Carlos Chavira Dx/Rx/DC Orders Clinical Impression: Dysequilibrium Instructions: ED Dizziness, Uncertain Cause Prescriptions: No Action Unobtainable Primary Care Provider: Abhijeet Islas Referrals: Abhijeet Islas MD [Primary Care Provider] - Activity Restrictions/Additional Instructions: I recommend you to stay in the hospital have an MRI to rule out a stroke but you are leaving AGAINST MEDICAL ADVICE. Please call your PCP tomorrow for close follow-up. If your symptoms return before you see your PCP I recommend coming back to the ER immediately. Disposition Disposition: Against Medical Advice Discharge Date/Time: 05/21/23 19:29 Capacity <Dr. Carlos Chavira MD - Last Filed: 05/21/23 19:35> Capacity Assessment Tool MEDICAL HOLD INDICATED IF YES TO ALL 3 QUESTIONS BELOW: Patient understands risks of TIA, stroke, disability, and/or , wants to leave AGAINST MEDICAL ADVICE, and we think the patient has the capacity to make this decision for himself. He understands that following up with his doctor is a good idea but in order to get emergent studies to evaluate for the possibility of TIA or stroke, there would likely be delays that could result in disability or at the worst case. He was also advised that he is welcome to return to the hospital at any time if he changes his mind about being admitted and getting MRI/other workup. Patient lacks Decision Making Capacity: unable to understand, reason and deliberate health related choices: No
--- NOTE | 2023-05-21 16:45 | RAD_ITS ---
INDICATION: weakness EXAMINATION/TECHNIQUE: X-RAY - XR Chest 1 View COMPARISON: None. FINDINGS: LINES/DEVICES: None. LUNGS: No consolidation, edema or effusion. No pneumothorax. MEDIASTINUM AND CARDIOVASCULAR STRUCTURES: Cardiac silhouette not enlarged. Central airways and mediastinal contour are unremarkable. BONES AND SOFT TISSUES: Unremarkable. RAD/Chest 1 View (Portable) IMPRESSION: No radiographic evidence of acute cardiopulmonary disease. Electronically Signed: Nikolai Lazaro MD at 18:33 EST ,
[2023-05-21 16:46] LABS: Absolute Lymphocyte Count 2.12 X10^3/uL (0.83-4.51); Absolute Neutrophil Count 4.4 X10^3/uL (2.0-7.7); Basophil# 0.05 X10^3/uL; Basophil% 0.7 % (0-1); Eosinophil# 0.17 X10^3/uL; Eosinophils% 2.3 % (0-5); Hematocrit 42.7 % (40-54); Hemoglobin 12.7 g/dL (13.0-16.5); Lymphocyte # 2.12 X10^3/ul (0.83-4.51); Lymphocyte % 28.5 % (19-41); Mean Corp Hgb Conc 29.7 g/dL (32-36); Mean Corpuscular Hgb 20.3 pg (27.0-32.0); Mean Corpuscular Volume 68.1 fL (80-94); Mean Platelet Vol. 9.6 fl (6.2-12.0); Monocyte# 0.69 X10^3/uL; Monocyte% 9.3 % (0-10); NRBC Flagged by Analyzer 0 % (0-5); Neutrophil % 58.9 % (47-70); Platelet Count 251 K/mm3 (150-450); RBC Distribution Width CV 17.5 % (11.6-14.6); RBC Distribution Width SD 39.1 fl (35.1-43.9); Red Blood Count 6.27 M/mm3 (4.6-6.2); White Blood Count 7.5 K/mm3 (4.4-11.0)
--- OUTSIDE RECORDS SUMMARY | 2023-05-21 16:58 | XMS RPT_ITS | CCD ---
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 Name Role Phone Abhijeet Islas MD Primary Care Provider ABHIJEET ISLAS Referring Unavailable DORIS, ABHIJEET Primary Care Unavailable DORIS, ABHIJEET Primary Care Unavailable DORIS, ABHIJEET Referring Unavailable DORIS, ABHIJEET Primary Care Unavailable DORIS, ABHIJEET Referring Unavailable DORIS, ABHIJEET Primary Care Unavailable DORIS, ABHIJEET Primary Care Unavailable DORIS, ABHIJEET Attending Unavailable CRISTY PORRAS Referring Unavail able DORIS, ABHIJEET Primary Care Unavailable CRISTY PORRAS Attending Unavail able DORIS, ABHIJEET Primary Care Unavailable James KOEHLER Referring Unavailable DORIS, ABHIJEET Primary Care Unavailable James KOEHLER Referring Unavailable DORIS, ABHIJEET Primary Care Unavailable James KOEHLER Attending Unavailable DORIS, ABHIJEET Primary Care Unavailable FAWAD GALVIN Referring Unavailable DORIS, ABHIJEET Primary Care Unavailable DORIS, ABHIJEET Referring Unavailable DORIS, ABHIJEET Primary Care Unavailable SHARATH MURILLO Attending Unavailable DORIS, ABHIJEET Primary Care Unavailable FAWAD GALVIN Attending Unavailable Medications Current Medications Medication Drug Class(es) Dates Sig (Normalized) Sig (Original) amLODIPine 10 mg oral tablet (20 sources) Dihydropyridine Calcium Channel Dariana Start: 06-03-2021 End: 07-18-2023 take 1 tablet by mouth once daily amLODIPine (NORVASC) 10 mg tablet Take 1 tablet by mouth once daily. 90 tablet 3 07/18/2022 07/18/2023 Active Completed/Discontinued Medications Medication Drug Class(es) Dates Sig (Normalized) Sig (Original) apremilast (16 sources) Start: 12-30-2020 End: 11-24-2021 take 1 tablet by mouth twice daily apremilast (OTEZLA) 30 mg tablet Indications: Psoriasis Take 1 tablet by mouth twice daily. 180 tablet 3 12/30/2020 11/24/2021 Discontinued Problems Active Problems Problem Classification Problem Date Documented Date Episodic/Chronic Abdominal pain (4 sources) Indigestion; Translations: [Epigastric pain] Episodic Alcohol-related disorders (20 sources) Continuous chronic alcoholism; Translations: [Alcohol dependence, uncomplicated] Onset: 07-27-2020 07-27-2020 Chronic Allergic reactions (2 sources) Eczema; Translations: [Other specified dermatitis] Episodic Chronic kidney disease (7 sources) Chronic kidney disease stage 3; Translations: [Stage 3 chronic kidney disease, unspecified whether stage 3a or 3b CKD (HCC)] Onset: 12-12-2022 12-12-2022 Chronic Chronic kidney disease (1 source) Chronic kidney disease; Translations: [Stage 3 chronic kidney disease, unspecified whether stage 3a or 3b CKD (HCC)] Onset: 12-12-2022 Deficiency and other anemia (20 sources) Anemia; Translations: [Anemia, unspecified] Onset: 05-17-2019 05-17-2019 Episodic Disorders of lipid metabolism (20 sources) Mixed hyperlipidemia; Translations: [Mixed hyperlipidemia] Onset: 07-27-2020 07-27-2020 Chronic Esophageal disorders (1 source) Gastro-esophageal reflux disease with esophagitis; Translations: [Gastroesophageal reflux disease with esophagitis, unspecified whether hemorrhage] 05-12-2023 Chronic Esophageal disorders (1 source) Esophageal disorders; Translations: [Gastroesophageal reflux disease with esophagitis, unspecified whether hemorrhage] Onset: 05-12-2023 Essential hypertension (20 sources) Essential hypertension; Translations: [Essential (primary) hypertension] Onset: 07-22-2014 Chronic Miscellaneous mental health disorders (20 sources) Psychosexual dysfunction; Translations: [Unspecified sexual dysfunction not due to a substance or known physiological condition] Onset: 05-03-2006 05-03-2006 Chronic Other aftercare (2 sources) Patient encounter status; Translations: [Encounter for therapeutic drug level monitoring] Episodic Other infections; including parasitic (1 source) History of hepatitis B; Translations: [Personal history of other infectious and parasitic diseases] Episodic Other infections; including parasitic (1 source) History of Helicobacter pylori infection; Translations: [Personal history of other infectious and parasitic diseases] 05-12-2023 Episodic Other inflammatory condition of skin (20 sources) Psoriatic arthritis; Translations: [Arthropathic psoriasis, unspecified] Onset: 07-27-2020 07-27-2020 Chronic Other inflammatory condition of skin (4 sources) Psoriasis; Translations: [Psoriasis, unspecified] Chronic Other inflammatory condition of skin (2 sources) Psoriasis vulgaris; Translations: [Psoriasis vulgaris] Chronic Other inflammatory condition of skin (1 source) Arthropathic psoriasis, unspecified; Translations: [Psoriatic arthritis (HCC)] Onset: 07-27-2020 Chronic Other liver diseases (6 sources) Elevated liver enzymes level; Translations: [Abnormal levels of other serum enzymes] Episodic Other liver diseases (1 source) Abnormal levels of other serum enzymes; Translations: [Elevated liver enzymes] Onset: 03-24-2023 Episodic Other lower respiratory disease (1 source) Multiple nodules of lung; Translations: [Other nonspecific abnormal finding of lung field] Episodic Other nervous system disorders (1 source) Other chronic pain; Translations: [Chronic pain of left knee] Onset: 06-16-2022 Chronic Screening and history of mental health and substance abuse codes (1 source) Ex-smoker; Translations: [Personal history of nicotine dependence] Episodic Past or Other Problems Problem Classification Problem Date Documented Da te Episodic/Chronic Abdominal hernia (20 sources) Bilateral inguinal hernia; Translations: [Bilateral inguinal hernia, without obstruction or gangrene, not specified as recurrent] Onset: 09-07-2010 09-07-2010 Episodic Anal and rectal conditions (4 sources) Rectal prolapse; Translations: [Rectal prolapse] Onset: 06-16-2022 Episodic Bacterial infection; unspecified site (1 source) Helicobacter pylori [H. pylori] as the cause of diseases classified elsewhere; Translations: [Helicobacter pylori gastritis] Onset: 06-16-2022 Episodic Biliary tract disease (11 sources) Polyp of gallbladder; Translations: [Cholesterolosis of gallbladder] Onset: 07-12-2022 07-12-2022 Episodic Deficiency and other anemia (1 source) Anemia, unspecified; Translations: [Anemia, unspecified type] Onset: 05-17-2019 Episodic Diabetes mellitus without complication (20 sources) Hyperglycemia; Translations: [Hyperglycemia, unspecified] Onset: 10-29-2020 10-29-2020 Episodic Gastritis and duodenitis (17 sources) Helicobacter pylori-associated gastritis; Translations: [Gastritis, unspecified, without bleeding] Onset: 06-16-2022 Episodic Hemorrhoids (2 sources) Internal hemorrhoids; Translations: [Other hemorrhoids] Onset: 06-16-2022 Episodic Immunizations and screening for infectious disease (20 sources) Mantoux: positive; Translations: [Nonspecific reaction to tuberculin skin test without active tuberculosis] Onset: 06-16-2022 05-15-2019 Episodic Neoplasms of unspecified nature or uncertain behavior (20 sources) Neoplasm of uncertain behavior of skin; Translations: [Neoplasm of uncertain behavior of skin] Onset: 05-03-2006 05-03-2006 Episodic Other aftercare (1 source) Encounter for therapeutic drug level monitoring; Translations: [Medication monitoring encounter] Onset: 05-30-2022 Episodic Other lower respiratory disease (20 sources) Nodule of lung; Translations: [Solitary pulmonary nodule] Onset: 04-27-2021 04-27-2021 Episodic Other non-traumatic joint disorders (2 sources) Pain in left knee; Translations: [Pain in joint, lower leg] Onset: 06-16-2022 Episodic Other screening for suspected conditions (not mental disorders or infectious disease) (1 source) Encounter for screening for malignant neoplasm of respiratory organs; Translations: [Encounter for screening for lung cancer] Onset: 07-11-2022 Episodic Results Test Name Value Interpretation Reference Range Facil ity Vital Signs Date Time Vital Sign Value Performing Clinician Karla españa 05-12-2023 15:02-0500 Body height 165.1 cm Sharath Murillo MD Work Phone: [facility] 05-12-2023 15:02-0500 Body temperature 97.3 [degF] Sharath Murillo MD Work Phone: [facility] 05-12-2023 15:02-0500 Body weight 68.04 kg Sharath Murillo MD Work Phone: [facility] 05-12-2023 15:02-0500 Diastolic blood pressure 70 mm[Hg] Sharath Murillo MD Work Phone: [facility] 05-12-2023 15:02-0500 Heart rate 64 /min Sharath Murillo MD Work Phone: [facility] 05-12-2023 15:02-0500 SaO2% (BldA) [Mass fraction] 97 % Sharath Murillo MD Work Phone: [facility] 05-12-2023 15:02-0500 Systolic blood pressure 128 mm[Hg] Sharath Murillo MD Work Phone: [facility] 12-12-2022 15:01-0400 Body weight 65.77 kg Abhijeet Islas MD Work Phone: [facility] 12-12-2022 15:01-0400 Diastolic blood pressure 82 mm[Hg] Abhijeet Islas MD Work Phone: [facility] 12-12-2022 15:01-0400 Heart rate 62 /min Abhijeet Islas MD Work Phone: [facility] 12-12-2022 15:01-0400 SaO2% (BldA) [Mass fraction] 97 % Abhijeet Islas MD Work Phone: [facility] 12-12-2022 15:01-0400 Systolic blood pressure 138 mm[Hg] Abhijeet Islas MD Work Phone: [facility] 07-11-2022 14:53-0400 Body height 165.1 cm Cristy Savages-Erwin EQUITY SALES ASSISTANT.DECORATING INSTRUCTOR Work Phone: [facility] 07-11-2022 14:53-0400 Body weight 67.13 kg Cristy Savages-Erwin EQUITY SALES ASSISTANT.DECORATING INSTRUCTOR Work Phone: [facility] 07-11-2022 14:53-0400 Diastolic blood pressure 58 mm[Hg] Cristy Savages-Erwin EQUITY SALES ASSISTANT.DECORATING INSTRUCTOR Work Phone: [facility] 07-11-2022 14:53-0400 Heart rate 61 /min Cristy Savages-Erwin EQUITY SALES ASSISTANT.DECORATING INSTRUCTOR Work Phone: [facility] 07-11-2022 14:53-0400 SaO2% (BldA) [Mass fraction] 100 % Cristy Savages-Erwin EQUITY SALES ASSISTANT.DECORATING INSTRUCTOR Work Phone: [facility] 07-11-2022 14:53-0400 Systolic blood pressure 114 mm[Hg] Cristy VidesaminamayankPatrice LAURENT.DECORATING INSTRUCTOR Work Phone: [facility] 06-16-2022 15:02-0400 Body weight 67.59 kg NA Koehler PA-C Work Phone: [facility] 06-16-2022 15:02-0400 Diastolic blood pressure 84 mm[Hg] NA Koehler PA-C Work Phone: [facility] 06-16-2022 15:02-0400 Heart rate 62 /min NA Koehler PA-C Work Phone: [facility] 06-16-2022 15:02-0400 Respiratory rate 16 /min NA Koehler PA-C Work Phone: [facility] 06-16-2022 15:02-0400 SaO2% (BldA) [Mass fraction] 96 % NA Koehler PA-C Work Phone: [facility] 06-16-2022 15:02-0400 Systolic blood pressure 142 mm[Hg] NA Koehler PA-C Work Phone: [facility] 11-24-2021 16:55-0400 Diastolic blood pressure 66 mm[Hg] Abhijeet Islas MD Work Phone: [facility] 11-24-2021 16:55-0400 Systolic blood pressure 132 mm[Hg] Abhijeet Islas MD Work Phone: [facility] 11-24-2021 16:39-0400 Body height 165.1 cm Abhijeet Islas MD Work Phone: [facility] 11-24-2021 16:39-0400 Body weight 66.13 kg Abhijeet Islas MD Work Phone: [facility] 11-24-2021 16:39-0400 Heart rate 68 /min Abhijeet Islas MD Work Phone: [facility] 11-24-2021 16:39-0400 SaO2% (BldA) [Mass fraction] 97 % Abhijeet Islas MD Work Phone: [facility] 08-13-2021 10:37-0400 Body temperature 97.9 [degF] NA Koehler PA-C Work Phone: [facility] 08-13-2021 10:37-0400 Body weight 67.13 kg NA Koehler PA-C Work Phone: [facility] 08-13-2021 10:37-0400 Diastolic blood pressure 66 mm[Hg] NA Koehler PA-C Work Phone: [facility] 08-13-2021 10:37-0400 Heart rate 76 /min NA Koehler PA-C Work Phone: [facility] 08-13-2021 10:37-0400 SaO2% (BldA) [Mass fraction] 96 % NA Koehler PA-C Work Phone: [facility] 08-13-2021 10:37-0400 Systolic blood pressure 148 mm[Hg] NA Koehler PA-C Work Phone: [facility] 07-05-2021 15:48-0400 Diastolic blood pressure 78 mm[Hg] Mi Nurse Work Phone: [facility] 07-05-2021 15:48-0400 Heart rate 63 /min Mi Nurse Work Phone: [facility] 07-05-2021 15:48-0400 Systolic blood pressure 140 mm[Hg] Mi Nurse Work Phone: [facility] Encounters Encounter Date Encounter Type Care Provider Facility Start: 05-12-2023 End: 05-12-2023 [facility] Facility:[facility] Start: 05-12-2023 End: 05-12-2023 Patient encounter procedure Sharath Murillo MD Work Phone: General Surgery Procedures Date Procedure Procedure Detail Performing Clinician Start: 06-27-2022 Us abdominal real ti me w/image limited M Carroll Koehler PA-C Work Phone: Start: 06-16-2022 [employer] COVI D-19 BIVALENT BOOSTER VACCINE, AGE 12+ YR M Carroll Koehler PA-C Work Phone: Start: 10-29-2020 Lipid 1996 panel - S pedro or Plasma Abhijeet Islas MD Work Phone: Start: 09-24-2019 Colonoscopy Mi Nurse Work Phone: Start: 09-09-2015 Adult depression scr eening assessment Mi Nurse Work Phone: Plan of Treatment Date Care Activity Detail Author Start: 09-23-2029 Colonoscopy COLONOSCOPY [facility] Start: 09-23-2029 COLORECTAL CANCER SCREENING COLORECTAL CANCER SCREENING [facility] Start: 09-23-2029 Screening for malign ant neoplasm of colon [facility] Start: 12-12-2025 Diabetes Screening Diabetes Screenin g [facility] Start: 10-29-2025 Lipid 1996 panel - S pedro or Plasma Lipid Screening [facility] Start: 10-29-2025 Lipid panel Lipid Screening [facility] Start: 10-29-2025 LIPID SCREEN LIPID SCREEN [facility] Start: 06-16-2025 DIABETES SCREEN DIABETES SCREEN [facility] Start: 06-16-2025 Diabetes Screening Diabetes Screenin g [facility] Start: 05-30-2025 DIABETES SCREEN DIABETES SCREEN [facility] Start: 06-03-2024 DIABETES SCREEN DIABETES SCREEN [facility] Start: 05-12-2024 BP Controlled (<130/80) BP Controlle d (<130/80) [facility] Start: 01-26-2024 Fecal Occult Blood Fecal Occult Bloo d [facility] Start: 01-26-2024 Screening for malign ant neoplasm of colon Fecal Occult Blood [facility] Start: 12-13-2023 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 Operator 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 Disease Visit Annual PCP Team Chronic Disease Visit [facility] Start: 12-13-2023 Covid-19 Vaccine ( season) Covid-19 Vaccine ( season) [facility] Immunizations Immunization Date Immunization Notes Care Provider Fa jorge 06-16-2022 pneumococcal Conjuga te, unspecified formulation RENETTA Koehler PA-C Work Phone: [facility] Work Phone: 06-16-2022 COVID-19 booster vaccine, age 12+ yr, bivalent (Crittercism) NA Koehler PA-C Work Phone: [facility] 06-16-2022 pneumococcal (PCV20) vaccine, 20 valent (PREVNAR 20) RENETTA Koehler PA-C Work Phone: [facility] 06-03-2021 COVID-19 vaccine, ag e 12+ yr (PFIZER-BIONTECH - FLOWERS TOP) Ne Nurse Work Phone: [facility] Work Phone: 11-23-2020 COVID-19 vaccine, ag e 12+ yr (PFIZER-BIONTECH - PURPLE TOP) Ne Nurse Work Phone: [facility] Work Phone: 11-02-2020 COVID-19 vaccine, ag e 12+ yr (PFIZER-BIONTECH - PURPLE TOP) Ne Nurse Work Phone: [facility] 12-11-2017 influenza virus vacc ine, unspecified formulation Abhijeet Islas MD Work Phone: [facility] 09-09-2015 tetanus and diphther ia toxoids, adsorbed, preservative free, for adult use (5 Lf of tetanus toxoid and 2 Lf of diphtheria toxoid) Ne Nurse Work Phone: [facility] 10-14-2014 pneumococcal conjuga te vaccine, 13 valent Ne Nurse Work Phone: [facility] Work Phone: 10-14-2014 pneumococcal polysaccharide vaccine, 23 valent RENETTA Koehler PA-C Work Phone: [facility] Work Phone: 07-12-2010 pneumococcal polysaccharide vaccine, 23 valent Ne Nurse Work Phone: [facility] Payers Date Payer Category Payer Medicare MEDICARE MEDICAR E A AND B [id number] 2014-Present [phone] [place] [address] Medicare [id number] 2014 Medicare MEDICARE MEDICAR E A AND B [id number] 2014-Present [phone] [place] [address] Medicare [id number] 2014 Medicare [id number] Social History Date Type Detail Facility Start: 06-12-2014 End: 11-16-2021 Tobacco smoking status NHIS Ex-smoker [facility] End: 03-27-2006 History of tobacco use Current smoker [facility] End: 03-27-2006 History of tobacco use Cigarette Smoker [facility] Start: 06-12-2014 End: 12-12-2022 Cigarettes smoked current (pack per day) - Reported 1 [facility] Work Phone: Start: 06-12-2014 End: 11-16-2021 Tobacco use and exposure Smokeless tobacco non-user [facility] Start: 07-05-2021 End: 05-12-2023 Alcohol intake Current drinker of alcohol (finding) [facility] Start: 09-09-2015 End: 11-16-2021 Tobacco Comment continues nicotine gum [facility] Start: 1950 Sex Assigned At Not on file C [facility] Start: 03-28-2021 End: 11-24-2021 Exposure to SARS-CoV-2 (event) Not sure [facility] Start: 07-11-2022 End: 12-12-2022 Tobacco use panel [facility] Work Phone: National Score (1-10 0), lower number is lower risk 51 [facility] Work Phone: Medical Equipment Procedure Code Equipment Code Equipment Origin al Text Equipment Identifier Dates Mesh 3dmax Light Lg Right - [id number] Start: 08-26-2014 Mesh 3dmax Light Left - [id number] Start: 08-26-2014 Clinical Notes 07-10-2014 to 05-12-2023 Sharath Murillo MD - 05/12/2023 8:31 PM Merly Peace LPN - 05/12/2023 3:02 PM Fawad Dennis MD - 04/11/2023 3:31 PM ESTTelephone Encounter - Chyna Canela DONOR SERVICES TEAM LEADER - 01/17/2023 9:29 AM EDT Note Date & Type Note Facility 05-12-2023 Note HNO ID: [id number] Author: SHARATH MURILLO MD Service: ? Author Type: Physician Type: Progress Notes Filed: 05/12/2023 20:37 Note Text: HISTORY AND PHYSICAL Max Ventura 1950 REFERRING PHYSICIAN: Abhijeet Islas MD CHIEF COMPLAINT: Consult (Anemia, Cologuard was negative 06/27/22 US abd/spleen ) HPI: The patient is a 72 year old male with a history of anemia. I saw the patient in April 2019 for anemia and dizziness. The patient noted significant blood after straining with bowel movements he had no upper GI complaints. He had not undergone prior colonoscopy. I performed upper and lower endoscopy on 09/24/2019. The patient was found to have three non-bleeding superficial gastric ulcers, hiatal hernia, mildly severe esophagitis, duodenitis, diverticulosis, internal hemorrhoids which were banded. Pathology demonstrated: FINAL DIAGNOSIS 1. Antrum, biopsy (A) - Helicobacter gastritis. 2. Distal esophagus, biopsy (B) - Reactive squamous mucosa; no evidence of intestinal metaplasia or dysplasia. The patient is followed by Dr. Islas. Dr. Islas notes that he is slowly having a decrease in his hemoglobin level and asked the patient to present to my office to consider repeat endoscopy. The patient tells me he does not wish to consider endoscopy at this time. He definitely does not want another colonoscopy and would prefer not to have upper endoscopy. He states he denies blood in his stools. He had a negative fecal occult blood test January 25, 2023. The patient is being seen by me today at the request of Dr. Abhijeet Islas MD for my opinion and advice regarding slowly worsening anemia with a negative fecal occult blood test, history of H. pylori gastritis. PAST MEDICAL HISTORY Diagnosis Date Anemia Hernia of abdominal cavity HTN (hypertension) Hyperglycemia PPD positive age about 48, treated with inh by ID Tobacco abuse quit PAST SURGICAL HISTORY Procedure Laterality Date COLONOSCOPY FLX DX W/COLLJ SPEC WHEN PFRMD 09/24/2019 Colonoscopy ESOPHAGOGASTRODUODENOSCOPY TRANSORAL DIAGNOSTIC 09/24/2019 EGD PAST SURGICAL HISTORY OF dental work REPAIR FIRST ABDOMINAL WALL HERNIA Bilateral 08/26/2014 3D Max lite Current Outpatient Medications Medication Sig lisinopril (ZESTRIL) 40 mg tablet Take 1 tablet by mouth once daily. omeprazole (PRILOSEC) 20 mg capsule Take 2 capsules by mouth daily before breakfast. 1/2 hr before meal. (Patient taking differently: Take 40 mg by mouth as needed. 1/2 hr before meal.) amLODIPine (NORVASC) 10 mg tablet Take 1 tablet by mouth once daily. mometasone (ELOCON) 0.1 % cream Apply to affected area once daily. For areas of itching on the back and legs. (Patient taking differently: Apply to affected area as needed. For areas of itching on the back and legs.) secukinumab (COSENTYX PEN, 2 PENS,) 150 mg/mL Inject 300mg (2 pens) subcutaneously every 4 weeks. FOR MAINTENANCE DOSE No current facility-administered medications for this visit. ALLERGIES: Patient has no known allergies. PERSONAL HISTORY: Social History Tobacco Use Smoking status: Former Packs/day: 1.00 Years: 40.00 Additional pack years: 0.00 Total pack years: 40.00 Types: Cigarettes Quit date: 03/27/2006 Years since quittin.1 Smokeless tobacco: Never Tobacco comments: continues nicotine gum Vaping Use Vaping Use: Never used Substance Use Topics Alcohol use: Yes Alcohol/week: 8.0 standard drinks of alcohol Types: 8 Glasses of wine per week Comment: 1bottle and 1 glass of wine daily Drug use: No FAMILY HISTORY: FAMILY HISTORY Problem Relation Age of Onset Diabetes Mother REVIEW OF SYMPTOMS: The review of systems data was entered by the nurse and reviewed by nv Nursing Notes: Merly Webster LPN 05/12/2023 3:04 PM Signed REVIEW OF SYSTEMS: General: The patient denies fatigue, denies weight loss, denies weight gain, denies feeling hot, and denies feelings of cold. Eyes: The patient denies glaucoma, denies eye injury/surgery, wears glasses or contacts. Ear/Nose/Throat: The patient denies allergies, denies hayfever, denies ear infections, and denies bloody noses. Cardiovascular: The patient denies chest pain, denies heart disease, notes high blood pressure,denies cardiac stent, denies prior heart attack, denies irregular heart beat, denies high cholesterol, denies poor circulation, denies heart failure, other cardiac issues, denies claudication, denies cold feet, denies peripheral arterial stent. Respiratory: The patient denies tuberculosis, denies pneumonia, denies frequent cough, denies pulmonary embolism, denies shortness of breath, and denies coughing up blood. Gastrointestinal: The patient denies difficulty swallowing, denies acid reflux, denies ulcers, denies vomiting, denies jaundice/hepatitis, denies gallbladder problems, denies black or tarry stools, denies hemorrhoids, denies bleeding from rectu (more content not included)... [facility] 05-12-2023 History of Presen t illness Narrative HISTORY AND PHYSICAL Max Veronicamalsom 1950 REFERRING PHYSICIAN: Abhijeet Islas MD CHIEF COMPLAINT: Consult (Anemia, Cologuard was negative 06/27/22 US abd/spleen ) HPI: The patient is a 72 year old male with a history of anemia. I saw the patient in April 2019 for anemia and dizziness. The patient noted significant blood after straining with bowel movements he had no upper GI complaints. He had not undergone prior colonoscopy. I performed upper and lower endoscopy on 09/24/2019. The patient was found to have three non-bleeding superficial gastric ulcers, hiatal hernia, mildly severe esophagitis, duodenitis, diverticulosis, internal hemorrhoids which were banded. Pathology demonstrated: FINAL DIAGNOSIS 1. Antrum, biopsy (A) - Helicobacter gastritis. 2. Distal esophagus, biopsy (B) - Reactive squamous mucosa; no evidence of intestinal metaplasia or dysplasia. The patient is followed by Dr. Islas. Dr. Islas notes that he is slowly having a decrease in his hemoglobin level and asked the patient to present to my office to consider repeat endoscopy. The patient tells me he does not wish to consider endoscopy at this time. He definitely does not want another colonoscopy and would prefer not to have upper endoscopy. He states he denies blood in his stools. He had a negative fecal occult blood test January 25, 2023. The patient is being seen by me today at the request of Dr. Abhijeet Islas MD for my opinion and advice regarding slowly worsening anemia with a negative fecal occult blood test, history of H. pylori gastritis. PAST MEDICAL HISTORY Diagnosis Date Anemia Hernia of abdominal cavity HTN (hypertension) Hyperglycemia PPD positive age about 48, treated with inh by ID Tobacco abuse quit PAST SURGICAL HISTORY Procedure Laterality Date COLONOSCOPY FLX DX W/COLLJ SPEC WHEN PFRMD 09/24/2019 Colonoscopy ESOPHAGOGASTRODUODENOSCOPY TRANSORAL DIAGNOSTIC 09/24/2019 EGD PAST SURGICAL HISTORY OF dental work REPAIR FIRST ABDOMINAL WALL HERNIA Bilateral 08/26/2014 3D Max lite Current Outpatient Medications Medication Sig lisinopril (ZESTRIL) 40 mg tablet Take 1 tablet by mouth once daily. omeprazole (PRILOSEC) 20 mg capsule Take 2 capsules by mouth daily before breakfast. 1/2 hr before meal. (Patient taking differently: Take 40 mg by mouth as needed. 1/2 hr before meal.) amLODIPine (NORVASC) 10 mg tablet Take 1 tablet by mouth once daily. mometasone (ELOCON) 0.1 % cream Apply to affected area once daily. For areas of itching on the back and legs. (Patient taking differently: Apply to affected area as needed. For areas of itching on the back and legs.) secukinumab (COSENTYX PEN, 2 PENS,) 150 mg/mL Inject 300mg (2 pens) subcutaneously every 4 weeks. FOR MAINTENANCE DOSE No current facility-administered medications for this visit. ALLERGIES: Patient has no known allergies. PERSONAL HISTORY: Social History Tobacco Use Smoking status: Former Packs/day: 1.00 Years: 40.00 Additional pack years: 0.00 Total pack years: 40.00 Types: Cigarettes Quit date: 03/27/2006 Years since quittin.1 Smokeless tobacco: Never Tobacco comments: continues nicotine gum Vaping Use Vaping Use: Never used Substance Use Topics Alcohol use: Yes Alcohol/week: 8.0 standard drinks of alcohol Types: 8 Glasses of wine per week Comment: 1bottle and 1 glass of wine daily Drug use: No FAMILY HISTORY: FAMILY HISTORY Problem Relation Age of Onset Diabetes Mother REVIEW OF SYMPTOMS: The review of systems data was entered by the nurse and reviewed by nv Nursing Notes: Merly Webster LPN 05/12/2023 3:04 PM Signed REVIEW OF SYSTEMS: General: The patient denies fatigue, denies weight loss, denies weight gain, denies feeling hot, and denies feelings of cold. Eyes: The patient denies glaucoma, denies eye injury/surgery, wears glasses or contacts. Ear/Nose/Throat: The patient denies allergies, denies hayfever, denies ear infections, and denies bloody noses. Cardiovascular: The patient denies chest pain, denies heart disease, notes high blood pressure,denies cardiac stent, denies prior heart attack, denies irregular heart beat, denies high cholesterol, denies poor circulation, denies heart failure, other cardiac issues, denies claudication, denies cold feet, denies peripheral arterial stent. Respiratory: The patient denies tuberculosis, denies pneumonia, denies frequent cough, denies pulmonary embolism, denies shortness of breath, and denies coughing up blood. Gastrointestinal: The patient denies difficulty swallowing, denies acid reflux, denies ulcers, denies vomiting, denies jaundice/hepatitis, denies gallbladder problems, denies black or tarry stools, denies hemorrhoids, denies bleeding from rectum, denies diverticulitis, denies constipation, denies diarrhea, denies loss of stool control, and notes hernias. Kidney/Bladder: The patient denies kidney stones, denies urine infections, and denies bloody urine. Skin: The patient denies a history of skin cancer, denies bleeding/changing moles, and denies a history of skin rash. Neurologic: The patient denies a history of epilepsy/convulsions, denies headaches, denies head/spinal injuries, and denies stroke/TIA. Psychiatric: The patient denies psychiatric medications, denies depression, and denies voices, denies substance abuse. Endocrine: The patient denies thyroid disorders, denies diabetes, and denies hormonal problems. Hematologic: The patient denies a history of bruising, denies bleeding, and denies anemia, denies blood clots. Infections: The patient denies a history of measles and mumps, denies rheumatic fever, and denies sexually transmitted diseases. Musculoskeletal: The patient denies back pain/injury, denies back problems, denies sciatica, denies knee/foot trouble, denies arthritis, or denies gout. When was patient's last Mammogram screening? N/A Last Colonoscopy: 2019 Merly Webster LPN PHYSICAL EXAMINATION: General: The patient is 72 year old male, well nourished, well hydrated in no acute distress. The patient is oriented to time, place, and person. VITALS: Blood pressure 128/70, pulse 64, temperature 36.3 C (97.3 F), height 165.1 cm (5' 5 ), weight 68 kg (150 lb), SpO2 97%. HEENT: Normal cephalic, ataumatic, pupils are equally round, sclera are anicteric, mucous membranes are moist, oropharynx is clear. Neck has no masses, asymmetry or lymphadenopathy. Thyroid is unremarkable. Respiratory: Clear to auscultation and percussion. Normal respiratory excursion and pattern. Cardiac: Examination is regular rate and rhythm. Abdominal exam: Soft, nontender, with no palpable masses. No hepatosplenomegaly. No palpable hernias. Rectal exam: exam deferred Extremities: no clubbing, cyanosis or edema. No adenopathy. Other: LABORATORY VALUES: As Noted RADIOLOGIC STUDIES: As Noted Assessment IMPRESSION: Slowly decreasing hemoglobin level/anemia, history of H. pylori gastritis PLAN: The patient declines endoscopy at this time. After discussion we agreed to obtain a stool for Helicobacter pylori antigen. If this is positive then I would consider repeat upper endoscopy. Diagnoses: (Z86.19) History of Helicobacter pylori infection (primary encounter diagnosis) (D64.9) Anemia, unspecified type (K21.00) Gastroesophageal reflux disease with esophagitis, unspecified whether hemorrhage My findings have been communicated to Dr. Abhijeet Islas MD via shared medical record. This note will be forwarded to Dr. Abhijeet Islas MD. Return to Clinic: The patient is instructed to follow-up with me as needed. Sharath Murillo MD documented in this encounter [facility] 05-12-2023 Nurse Note REVIEW OF SYSTEMS: General: The patient denies fatigue, denies weight loss, denies weight gain, denies feeling hot, and denies feelings of cold. Eyes: The patient denies glaucoma, denies eye injury/surgery, wears glasses or contacts. Ear/Nose/Throat: The patient denies allergies, denies hayfever, denies ear infections, and denies bloody noses. Cardiovascular: The patient denies chest pain, denies heart disease, notes high blood pressure,denies cardiac stent, denies prior heart attack, denies irregular heart beat, denies high cholesterol, denies poor circulation, denies heart failure, other cardiac issues, denies claudication, denies cold feet, denies peripheral arterial stent. Respiratory: The patient denies tuberculosis, denies pneumonia, denies frequent cough, denies pulmonary embolism, denies shortness of breath, and denies coughing up blood. Gastrointestinal: The patient denies difficulty swallowing, denies acid reflux, denies ulcers, denies vomiting, denies jaundice/hepatitis, denies gallbladder problems, denies black or tarry stools, denies hemorrhoids, denies bleeding from rectum, denies diverticulitis, denies constipation, denies diarrhea, denies loss of stool control, and notes hernias. Kidney/Bladder: The patient denies kidney stones, denies urine infections, and denies bloody urine. Skin: The patient denies a history of skin cancer, denies bleeding/changing moles, and denies a history of skin rash. Neurologic: The patient denies a history of epilepsy/convulsions, denies headaches, denies head/spinal injuries, and denies stroke/TIA. Psychiatric: The patient denies psychiatric medications, denies depression, and denies voices, denies substance abuse. Endocrine: The patient denies thyroid disorders, denies diabetes, and denies hormonal problems. Hematologic: The patient denies a history of bruising, denies bleeding, and denies anemia, denies blood clots. Infections: The patient denies a history of measles and mumps, denies rheumatic fever, and denies sexually transmitted diseases. Musculoskeletal: The patient denies back pain/injury, denies back problems, denies sciatica, denies knee/foot trouble, denies arthritis, or denies gout. When was patient's last Mammogram screening? N/A Last Colonoscopy: 2019 Merly Webster LPN documented in this encounter [facility] 04-11-2023 Note HNO ID: [id number] Author: FAWAD GALVIN MD Service: ? Author Type: Physician Type: Progress Notes Filed: 04/23/2023 19:03 Note Text: Department of Dermatology Fawad Galvin MD 04/11/2023 Last visit in Dermatology: 05/11/2022 Objective/Assessment/Plan 1. Psoriasis Left Elbow - Posterior, Right Elbow - Posterior, Right Lower Leg - Anterior Resolving erythema to bilateral posterior elbows. Discussed treatment options. Plan to continue with the Cosentyx and the mometasone for the present. Will need labs annually Follow-up as noted below or as needed. Chief Complaint: Patient presents with: Psoriasis Subjective and Objective No flowsheet data found. HPI: Max Ventura is a 72 year old male who presents for: Follow-up on: - Psoriasis Current treatment: - mometasone 0.1% cream - Cosentyx pen 150mg/mL Patient reports improvement The patient is tolerating the medication well. No local side effects noted. Past medical history is reviewed. Medication list is reviewed. Physical Exam included: As noted. Intake completed by Haley Pineda LPN By signing my name below, I, Cezar Beard, attest that this documentation has been prepared under the direction and in the presence of Dr. Galvin. Electronically signed, Cezar Beard, Medical Student April 11, 2023 4:04 PM Attending signature: TEACHING PHYSICIAN NOTE OF PERSONAL INVOLVEMENT IN CARE: I have personally seen and examined the patient and performed the medical decision-making components. I have reviewed the medical student documentation and verified the findings in the note as written. Any additions or changes are noted in bold/italics. In addition, as applicable, I agree with the Chief Complaint, ROS, and Past Histories independently gathered by the clinical operations support coordinator and the remaining scribed note accurately describes my personal service to the patient. Signature: Fawad Galvin Date: 04/23/2023 Time: 7:01 PM [facility] 04-11-2023 History of Presen t illness Narrative Images from the original note were not included. Department of Dermatology Fawad Galvin MD 04/11/2023 Last visit in Dermatology: 05/11/2022 Objective/Assessment/Plan 1. Psoriasis Left Elbow - Posterior, Right Elbow - Posterior, Right Lower Leg - Anterior Resolving erythema to bilateral posterior elbows. Discussed treatment options. Plan to continue with the Cosentyx and the mometasone for the present. Will need labs annually Follow-up as noted below or as needed. Chief Complaint: Patient presents with: Psoriasis Subjective and Objective No flowsheet data found. HPI: Max Ventura is a 72 year old male who presents for: Follow-up on: - Psoriasis Current treatment: - mometasone 0.1% cream - Cosentyx pen 150mg/mL Patient reports improvement The patient is tolerating the medication well. No local side effects noted. Past medical history is reviewed. Medication list is reviewed. Physical Exam included: As noted. Intake completed by Haley Pineda LPN By signing my name below, I, Cezar Beard, attest that this documentation has been prepared under the direction and in the presence of Dr. Galvin. Electronically signed, Cezar Beard, Medical Student April 11, 2023 4:04 PM Attending signature: TEACHING PHYSICIAN NOTE OF PERSONAL INVOLVEMENT IN CARE: I have personally seen and examined the patient and performed the medical decision-making components. I have reviewed the medical student documentation and verified the findings in the note as written. Any additions or changes are noted in bold/italics. In addition, as applicable, I agree with the Chief Complaint, ROS, and Past Histories independently gathered by the clinical operations support coordinator and the remaining scribed note accurately describes my personal service to the patient. Signature: Fawad Galvin Date: 04/23/2023 Time: 7:01 PM documented in this encounter [facility] 01-17-2023 Miscellaneous Notes Spoke with pt. He will come in and get the IFOBT kit. He will come back in 6 weeks to repeat blood work. Chyna Canela LPN Left message to return call Liver is up but improving. No etoh. Will follow . Recheck labs in six weeks. Still anemic. I saw he did not get his ifobt. I need him to do that. If not, can refer to gi for anemia and he will have to undergo more work up rather than the ifobt. Let me know what he would like. documented in this encounter [facility] 01-16-2023 Miscellaneous Notes FYI-Phone call from lab patient declines IFOBT kit. Had labs drawn today. documented in this encounter [facility] 12-15-2022 Miscellaneous Notes Spoke with patient. Given message from provider's office. Patient verbalizes understanding. Transferred to back tender paper machine for Hepatology appointment. Angy Bennett RN Called and left a voicemail for the Patient to call back and ask for a nurse to receive the providers message. Makenna Rodrigez, RN Liver is still up. Needs to see hepatology for his liver. Avoid etoh and tylenol. Still anemic. Recheck labs in a few weeks including ifobt. documented in this encounter [facility] 12-12-2022 Note HNO ID: [id number] Author: Abhijeet Islas MD Service: ? Author Type: Physician Type: Progress Notes Filed: 12/12/2022 3:22 PM Note Text: Patient presents with: 6 Month Exam HPI: Patient presents today for office visit for follow up. HTN: Patient is compliant with meds Yes Monitors bp at home: No. Denies side effects: Yes. Chest pain: No. Dyspnea: No. Edema: No. Palpitations: No. Syncope: No. Headache: No. Dizziness: No. Gastro: Reports that is doing well as long as he has his prilosec to take. Did not follow up on his liver labs. Had us. Has a gallbladder polyp Usually drinks about 4 glasses of wine a night. Seeing derm for his psoriasis. Seeing pulmonary for following his lungs. Also following his anemia. Had egd and colonoscopy in 2019. No changes in bowels. No bloody or black stools. No issues currently with slight rectal prolapse. Did see surgery for the same. MEDICATIONS: Current Outpatient Medications Medication Sig omeprazole (PRILOSEC) 20 mg capsule Take 2 capsules by mouth daily before breakfast. 1/2 hr before meal. amLODIPine (NORVASC) 10 mg tablet Take 1 tablet by mouth once daily. lisinopril (ZESTRIL) 40 mg tablet Take 1 tablet by mouth once daily. secukinumab (COSENTYX PEN, 2 PENS,) 150 mg/mL Inject 300mg (2 pens) subcutaneously every 4 weeks. FOR MAINTENANCE DOSE mometasone (ELOCON) 0.1 % cream Apply to affected area once daily. For areas of itching on the back and legs. No current facility-administered medications for this visit. ALLERGIES: ALLERGIES No Known Allergies PAST MEDICAL HISTORY Diagnosis Date Hernia of abdominal cavity HTN (hypertension) Hyperglycemia PPD positive age about 48, treated with inh by ID Tobacco abuse quit PAST SURGICAL HISTORY Procedure Laterality Date COLONOSCOPY FLX DX W/COLLJ SPEC WHEN PFRMD 09/24/2019 Colonoscopy ESOPHAGOGASTRODUODENOSCOPY TRANSORAL DIAGNOSTIC 09/24/2019 EGD PAST SURGICAL HISTORY OF dental work REPAIR FIRST ABDOMINAL WALL HERNIA Bilateral 08/26/2014 3D Max lite FAMILY HISTORY Problem Relation Age of Onset Diabetes Mother Social History Tobacco Use Smoking status: Former Packs/day: 1.00 Years: 40.00 Additional pack years: 0.00 Total pack years: 40.00 Types: Cigarettes Quit date: 03/27/2006 Years since quittin.7 Smokeless tobacco: Never Tobacco comments: continues nicotine gum Substance Use Topics Alcohol use: Yes Alcohol/week: 6.7 standard drinks of alcohol Types: 8 Glasses of wine per week Comment: 1bottle and 1 glass of wine daily Drug use: No Reviewed current medications, allergies, past medical history, surgical history, family history and social history today. REVIEW OF SYSTEMS All other reviewed and negative other than HPI. HEALTH MAINTENANCE: Reviewed health maintenance issues today and recommended the following in detail. Depression Assessment Never done Covid-19 Vaccine(5 - Pfizer risk series) due on 08/11/2022 VITALS: BP 138/82 Pulse 62 Wt 65.8 kg (145 lb) SpO2 97% BMI 24.13 kg/m? Last 4 Encounter Wt Readings: Date: Wt: 12/12/2022 65.8 kg (145 lb) 07/11/2022 67.1 kg (148 lb) 06/16/2022 67.6 kg (149 lb) 11/24/2021 66.1 kg (145 lb 12.8 oz) PHYSICAL EXAMINATION: General appearance: Well appearing, alert, in no acute distress, well-hydrated, well nourished. Skin: Skin color, texture, turgor normal, no suspicious rashes or lesions Head: Normocephalic, no masses, lesions, tenderness or abnormalities Lungs: Lungs clear to auscultation. No wheezing, rhonchi, rales Heart: RRR without murmur, gallop, or rubs. No ectopy Abdomen: Normal abdominal exam, Abdomen soft, non-tender. Bowel sounds normal. No masses, organomegaly Extremities: No deformities, edema, skin discoloration, clubbing or cyanosis. Good capillary refill. Musculoskeletal: No joint swelling, deformity, or tenderness ASSESSMENT/PLAN: 1. Lung nodule - ICD9: 793.11, ICD10: R91.1 (primary diagnosis) - per pulmonary. 2. Primary hypertension - ICD9: 401.9, ICD10: I10 - Controlled - Continue current medications - LISINOPRIL 40 MG TABLET 3. Stage 3 chronic kidney disease, unspecified whether stage 3a or 3b CKD (HCC) - ICD9: 585.3, ICD10: N18.30 - follow bmp. Keep bp tight. 4. Hyperglycemia - ICD9: 790.29, ICD10: R73.9 - will follow. - HGB A1C 5. Anemia, unspecified type - ICD9: 285.9, ICD10: D64.9 - follow lab.s - CBC + DIFF - IRON + TIBC 6. Elevated liver enzymes - ICD9: 790.5, ICD10: R74.8 - limit etoh. - HEPATIC FUNCTION PNL - GGT BLD 7. Psoriatic arthritis (HCC) - ICD9: 696.0, ICD10: L40.50 - per derm. 8. Gallbladder polyp - ICD9: 575.6, ICD10: K82.4 - recheck us as ordered. Abhijeet Islas [facility] 12-12-2022 History of Presen t illness Narrative Patient presents with: 6 Month Exam HPI: Patient presents today for office visit for follow up. HTN: Patient is compliant with meds Yes Monitors bp at home: No. Denies side effects: Yes. Chest pain: No. Dyspnea: No. Edema: No. Palpitations: No. Syncope: No. Headache: No. Dizziness: No. Gastro: Reports that is doing well as long as he has his prilosec to take. Did not follow up on his liver labs. Had us. Has a gallbladder polyp Usually drinks about 4 glasses of wine a night. Seeing derm for his psoriasis. Seeing pulmonary for following his lungs. Also following his anemia. Had egd and colonoscopy in 2019. No changes in bowels. No bloody or black stools. No issues currently with slight rectal prolapse. Did see surgery for the same. MEDICATIONS: Current Outpatient Medications Medication Sig omeprazole (PRILOSEC) 20 mg capsule Take 2 capsules by mouth daily before breakfast. 1/2 hr before meal. amLODIPine (NORVASC) 10 mg tablet Take 1 tablet by mouth once daily. lisinopril (ZESTRIL) 40 mg tablet Take 1 tablet by mouth once daily. secukinumab (COSENTYX PEN, 2 PENS,) 150 mg/mL Inject 300mg (2 pens) subcutaneously every 4 weeks. FOR MAINTENANCE DOSE mometasone (ELOCON) 0.1 % cream Apply to affected area once daily. For areas of itching on the back and legs. No current facility-administered medications for this visit. ALLERGIES: ALLERGIES No Known Allergies PAST MEDICAL HISTORY Diagnosis Date Hernia of abdominal cavity HTN (hypertension) Hyperglycemia PPD positive age about 48, treated with inh by ID Tobacco abuse quit PAST SURGICAL HISTORY Procedure Laterality Date COLONOSCOPY FLX DX W/COLLJ SPEC WHEN PFRMD 09/24/2019 Colonoscopy ESOPHAGOGASTRODUODENOSCOPY TRANSORAL DIAGNOSTIC 09/24/2019 EGD PAST SURGICAL HISTORY OF dental work REPAIR FIRST ABDOMINAL WALL HERNIA Bilateral 08/26/2014 3D Max lite FAMILY HISTORY Problem Relation Age of Onset Diabetes Mother Social History Tobacco Use Smoking status: Former Packs/day: 1.00 Years: 40.00 Additional pack years: 0.00 Total pack years: 40.00 Types: Cigarettes Quit date: 03/27/2006 Years since quittin.7 Smokeless tobacco: Never Tobacco comments: continues nicotine gum Substance Use Topics Alcohol use: Yes Alcohol/week: 6.7 standard drinks of alcohol Types: 8 Glasses of wine per week Comment: 1bottle and 1 glass of wine daily Drug use: No Reviewed current medications, allergies, past medical history, surgical history, family history and social history today. REVIEW OF SYSTEMS All other reviewed and negative other than HPI. HEALTH MAINTENANCE: Reviewed health maintenance issues today and recommended the following in detail. Depression Assessment Never done Covid-19 Vaccine(5 - Pfizer risk series) due on 08/11/2022 VITALS: BP 138/82 Pulse 62 Wt 65.8 kg (145 lb) SpO2 97% BMI 24.13 kg/m Last 4 Encounter Wt Readings: Date: Wt: 12/12/2022 65.8 kg (145 lb) 07/11/2022 67.1 kg (148 lb) 06/16/2022 67.6 kg (149 lb) 11/24/2021 66.1 kg (145 lb 12.8 oz) PHYSICAL EXAMINATION: General appearance: Well appearing, alert, in no acute distress, well-hydrated, well nourished. Skin: Skin color, texture, turgor normal, no suspicious rashes or lesions Head: Normocephalic, no masses, lesions, tenderness or abnormalities Lungs: Lungs clear to auscultation. No wheezing, rhonchi, rales Heart: RRR without murmur, gallop, or rubs. No ectopy Abdomen: Normal abdominal exam, Abdomen soft, non-tender. Bowel sounds normal. No masses, organomegaly Extremities: No deformities, edema, skin discoloration, clubbing or cyanosis. Good capillary refill. Musculoskeletal: No joint swelling, deformity, or tenderness ASSESSMENT/PLAN: 1. Lung nodule - ICD9: 793.11, ICD10: R91.1 (primary diagnosis) - per pulmonary. 2. Primary hypertension - ICD9: 401.9, ICD10: I10 - Controlled - Continue current medications - LISINOPRIL 40 MG TABLET 3. Stage 3 chronic kidney disease, unspecified whether stage 3a or 3b CKD (HCC) - ICD9: 585.3, ICD10: N18.30 - follow bmp. Keep bp tight. 4. Hyperglycemia - ICD9: 790.29, ICD10: R73.9 - will follow. - HGB A1C 5. Anemia, unspecified type - ICD9: 285.9, ICD10: D64.9 - follow lab.s - CBC + DIFF - IRON + TIBC 6. Elevated liver enzymes - ICD9: 790.5, ICD10: R74.8 - limit etoh. - HEPATIC FUNCTION PNL - GGT BLD 7. Psoriatic arthritis (HCC) - ICD9: 696.0, ICD10: L40.50 - per derm. 8. Gallbladder polyp - ICD9: 575.6, ICD10: K82.4 - recheck us as ordered. Abhijeet Islas documented in this encounter [facility] 10-19-2022 Miscellaneous Notes Patient has been identified by name and date of : Yes Last office visit in this department: 06/16/2022 Labs-06/16/22 NOV-12/12/22 RX INSTRUCTIONS: Patient requesting a 90 day supply of this medication. Patient aware RX will be sent to pharmacy. No need to notify patient. Patient phones requesting refills as follows: Requested Prescriptions Pending Prescriptions Disp Refills omeprazole (PRILOSEC) 20 mg capsule 60 capsule 0 Sig: Take 2 capsules by mouth daily before breakfast. 1/2 hr before meal. Please review and advise. Debra Brewster documented in this encounter [facility] 08-24-2022 Miscellaneous Notes Patient has been identified by name and date of : Patient phones for refill(s): Requested Prescriptions Pending Prescriptions Disp Refills omeprazole (PRILOSEC) 20 mg capsule 60 capsule 0 Sig: Take 2 capsules by mouth daily before breakfast. 1/2 hr before meal. Date of last office visit in primary care: 06/16/2022, has appt 12/12/2022 Last 2 Encounter Wt Readings: Date: Wt: 07/11/2022 67.1 kg (148 lb) 06/16/2022 67.6 kg (149 lb) Previous labs/tests for medication: Not applicable Please advise. Thank you. Greta Ray LPN documented in this encounter [facility] 07-28-2022 Note Patient Outreach (GENESIS TNAV) MAX VENTURA ([id number]) 1950 M Date Time Provider Department 07/28/22 CARLA EDWARDS During your visit today, we recorded the following information about you: Carla Edwards MA 07/28/2022 11:55 AM Signed POPULATION HEALTH NAVIGATION OUTREACH Action/FYI July 28, 2022 11:53 AM HCC Gaps O at this time. TONY with PCP team was June 16, 2022 with IVONNE Riley Six month follow up recommended, not scheduled at this time. Outcome: Spoke with patient. He has been scheduled with Abhijeet Islas MD on December 12, 2022 Thank you Patient Identified by Name and : YES, via phone Outreach Outcome/Action Spoke to patient / parent / legal guardian: Patient scheduled Did you use a PCP flex slot to schedule this appointment? No Reason for Outreach HCC or suspected condition Payer: Payor: MEDICARE / Plan: MEDICARE A AND B / Product Type: Medicare / Care Gap Reviewed:: Follow-up appointment Reminder: Reminder note to check Health Maintenance for items below Health Maintenance items due: DEPRESSION ASSESSMENT Never done Navigation Signature: Carla Edwards MA July 28, 2022 11:52 AM Allergies As of Date: 07/28/2022 (No Known Allergies) Date Reviewed: 07/11/2022 Reviewed by: Mile Bland MA - Fully Assessed Reason for Visit: Population Health Navigation Outreach [3910] Cmt: ACO HCC Prescriptions as of 07/28/2022 - amLODIPine (NORVASC) 10 mg tablet Take 1 tablet by mouth once daily. - lisinopril (ZESTRIL) 40 mg tablet Take 1 tablet by mouth once daily. - omeprazole (PRILOSEC) 20 mg capsule Take 2 capsules by mouth daily before breakfast. 1/2 hr before meal. - mometasone (ELOCON) 0.1 % cream Apply to affected area once daily. For areas of itching on the back and legs. - secukinumab (COSENTYX PEN, 2 PENS,) 150 mg/mL Inject 300mg (2 pens) subcutaneously every 4 weeks. 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] 05/03/2006 UNCERTAIN BEHAV NEOPL SKIN [D48.5] 05/03/2006 ELEV BL PRES W/O HYPERTN [R03.0] 05/03/2006 07/22/2014 Bilateral inguinal hernia [K40.20] 09/07/2010 Tobacco abuse [Z72.0] 07/10/2014 12/11/2017 HTN (hypertension) [I10] 07/22/2014 PPD positive [R76.11] Anemia [D64.9] 05/17/2019 Psoriatic arthritis (HCC) [L40.50] 07/27/2020 Hyperlipidemia, mixed [E78.2] 07/27/2020 Alcohol dependence, daily use (HCC) [F10.20] 07/27/2020 Hyperglycemia [R73.9] 10/29/2020 Lung nodule [R91.1] 04/27/2021 Helicobacter pylori gastritis [K29.70, B96.81] 06/16/2022 Gallbladder polyp [K82.4] 07/12/2022 Encounter Status:Closed by CARLA EDWARDS on 07/28/22 [facility] 07-28-2022 Note HNO ID: [id number] Author: Carla Edwards MA Service: ? Author Type: Motorcoach Driver Type: Progress Notes Filed: 07/28/2022 11:55 AM Note Text: POPULATION HEALTH NAVIGATION OUTREACH Action/FYI July 28, 2022 11:53 AM HCC Gaps O at this time. TONY with PCP team was June 16, 2022 with IVONNE Riley Six month follow up recommended, not scheduled at this time. Outcome: Spoke with patient. He has been scheduled with Abhijeet Islas MD on December 12, 2022 Thank you Patient Identified by Name and : YES, via phone Outreach Outcome/Action Spoke to patient / parent / legal guardian: Patient scheduled Did you use a PCP flex slot to schedule this appointment? No Reason for Outreach HCC or suspected condition Payer: Payor: MEDICARE / Plan: MEDICARE A AND B / Product Type: Medicare / Care Gap Reviewed:: Follow-up appointment Reminder: Reminder note to check Health Maintenance for items below Health Maintenance items due: DEPRESSION ASSESSMENT Never done Navigation Signature: Carla Edwards MA July 28, 2022 11:52 AM [facility] 07-28-2022 History of Presen t illness Narrative POPULATION HEALTH NAVIGATION OUTREACH Action/I July 28, 2022 11:53 AM HCC Gaps O at this time. TONY with PCP team was June 16, 2022 with IVONNE Riley Six month follow up recommended, not scheduled at this time. Outcome: Spoke with patient. He has been scheduled with Abhijeet Islas MD on December 12, 2022 Thank you Patient Identified by Name and : YES, via phone Outreach Outcome/Action Spoke to patient / parent / legal guardian: Patient scheduled Did you use a PCP flex slot to schedule this appointment? No Reason for Outreach HCC or suspected condition Payer: Payor: MEDICARE / Plan: MEDICARE A AND B / Product Type: Medicare / Care Gap Reviewed:: Follow-up appointment Reminder: Reminder note to check Health Maintenance for items below Health Maintenance items due: DEPRESSION ASSESSMENT Never done Navigation Signature: Carla Edwards MA July 28, 2022 11:52 AM documented in this encounter [facility] 07-18-2022 Miscellaneous Notes Patient has been identified by name and date of : Yes, Provider Sonia Pagan RN Date 07/18/2022 Time 4:22 pm Patient phones for refill(s): Requested Prescriptions Pending Prescriptions Disp Refills amLODIPine (NORVASC) 10 mg tablet 90 tablet 3 Sig: Take 1 tablet by mouth once daily. Date of last office visit with pcp: 06/16/2022 Future appt: none Last 2 Encounter Wt Readings: Date: Wt: 07/11/2022 67.1 kg (148 lb) 06/16/2022 67.6 kg (149 lb) Previous labs/tests for medication: Blood Pressure: BUN (mg/dL) Date Value 06/16/2022 16 04/14/2021 22 Sodium (mmol/L) Date Value 06/16/2022 134 04/14/2021 137 Last 1 Encounter BP Readings: Date: BP: 07/11/2022 114/58 Liver Function: ALT (U/L) Date Value 06/16/2022 58 04/14/2021 56 AST (U/L) Date Value 06/16/2022 77 04/14/2021 51 Please advise. Thank you. Sonia Pagan RN documented in this encounter [facility] 07-11-2022 Note HNO ID: [id number] Author: RT Carol(R) Service: ? Author Type: Technologist Type: Progress Notes Filed: 07/11/2022 3:12 PM Note Text: Radiology Service Progress Note PATIENT NAME: Max Ventura DATE OF SERVICE: July 11, 2022 TIME: 3:12 PM PATIENT IDENTITY VERIFICATION COMPLETED USING TWO (2) IDENTIFIERS: Name and Date of confirmed by patient verbally. FALL SCREENING: Has the patient had 2 falls in the last year or 1 fall with injury or currently using an Ambulatory Assistive Device (Walker, Cane, Wheelchair, Crutches, etc.)? No PATIENT GENDER DATA: Male PATIENT RELEVANT IMPLANT DATA REVIEWED: Not Applicable RADIOLOGY DEPARTMENT: CT; Exam(s) Completed: Chest PERIPHERAL IV DATA: Not applicable SIGNED BY: RT Carol(R) July 11, 2022 3:12 PM [facility] 07-11-2022 Note HNO ID: [id number] Author: Cristy Porras APRN.DECORATING INSTRUCTOR Service: ? Author Type: Nurse Practitioner Type: Progress Notes Filed: 07/11/2022 4:51 PM Note Text: LUNG SCREENING VISIT PRIMARY CARE PHYSICIAN: Abhijeet Islas MD PULMONARY PROVIDER: None Results will be communicated via letter or electronic record if applicable. Visit Delivery: In Person Patient Visit Type: Established Current or Ex-smoker? [Ex] Exam Type: annual LDCT Number of Pack Years: 40 Number of Years since Quit: 15 The patient's smoking history is similar to prior year shared decision visit. Results will be communicated via letter or electronic record. REQUESTER: The referring provider advised the patient to have screening. HISTORY OF PRESENT ILLNESS: Max Ventura is a 71 year old former smoker who presents for lung screening. Mr. Ventura is fully active and denies SANDERS. No recent respiratory infections or antibiotic use. Respiratory symptoms include: SOB: No Chest tightness: No Coughing: No Hemoptysis: No Wheezing: No Fever/Chills: No Recent Respiratory Infection: No Unintentional weight loss: No Last 6 Encounter Wt Readings: Date: Wt: 06/16/2022 67.6 kg (149 lb) 11/24/2021 66.1 kg (145 lb 12.8 oz) 08/13/2021 67.1 kg (148 lb) 04/27/2021 67.6 kg (149 lb) 04/02/2021 67.6 kg (149 lb) 02/08/2021 68.4 kg (150 lb 12.8 oz) ECOG PERFORMANCE STATUS: 0- Fully active, able to carry on all pre-disease performance w/o restriction. Modified Medical Research Crow Dyspnea Scale (MMRC) I only get breathless with strenous exercise 0 Lung Cancer Risk Factors: 1.Tobacco Use: Start Age 15, Quit Age 55 , Average packs per day 1, Pack Years 40. 2. Passive Smoke Exposure: Yes as an adult. 3. Personal hx of malignancy: No. 4. Significant exposures (1 year or more of exposure): None. 5. Race: White. 6. Education:Some college 7. BMI:Body mass index is 24.63 kg/m?. 8. COPD: No 9. Pneumonia in the past 5 years: No 10. Is there a history of lung cancer in a first degree relative? No. 11. Is there a history of lung cancer in a non first degree relative? Yes 12. Is there a history of any other cancer in a first degree relative? No. PAST MEDICAL HISTORY Diagnosis Date Hernia of abdominal cavity HTN (hypertension) Hyperglycemia PPD positive age about 48, treated with inh by ID Tobacco abuse quit PAST SURGICAL HISTORY Procedure Laterality Date COLONOSCOPY FLX DX W/COLLJ SPEC WHEN PFRMD 09/24/2019 Colonoscopy ESOPHAGOGASTRODUODENOSCOPY TRANSORAL DIAGNOSTIC 09/24/2019 EGD PAST SURGICAL HISTORY OF dental work REPAIR FIRST ABDOMINAL WALL HERNIA Bilateral 08/26/2014 3D Max lite FAMILY HISTORY Problem Relation Age of Onset Diabetes Mother lisinopril (ZESTRIL) 40 mg tablet Take 1 tablet by mouth once daily. omeprazole (PRILOSEC) 20 mg capsule Take 2 capsules by mouth daily before breakfast. 1/2 hr before meal. mometasone (ELOCON) 0.1 % cream Apply to affected area once daily. For areas of itching on the back and legs. secukinumab (COSENTYX PEN, 2 PENS,) 150 mg/mL Inject 300mg (2 pens) subcutaneously every 4 weeks. FOR MAINTENANCE DOSE amLODIPine (NORVASC) 10 mg tablet Take 1 tablet by mouth once daily. ALLERGIES No Known Allergies The medications and allergies were reviewed and reconciled for this patient and deemed current. Health Maintenance Immunization History Administered Date(s) Administered COVID-19 booster vaccine, age 12+ yr, bivalent (PFIZER-BIONTECH) 06/16/2022 COVID-19 original vaccine, age 12+ yr, monovalent (PFIZER-BIONTECH - FLOWERS TOP) 06/03/2021 COVID-19 original vaccine, age 12+ yr, monovalent (PFIZER-BIONTECH - PURPLE TOP) 11/02/2020 11/23/2020 pneumococcal (PCV13) vaccine, 13 valent (PREVNAR 13) 10/14/2014 pneumococcal (PCV20) vaccine, 20 valent (PREVNAR 20) 06/16/2022 pneumococcal (PPV23) vaccine, 23 valent (PNEUMOVAX 23) 07/12/2010 10/14/2014 tetanus diphtheria (Td) vaccine, age 7+ yr, 5 Lf tetanus, PF (TENIVAC) 09/09/2015 Colonoscopy: 09/24/2019 Mammogram: DATA REVIEW I have directly visualized the testing documented: Prior Imaging: Last CT/CTA Chest/Lungs CT LUNG FOLLOWUP WO IVCON Exam End: 04/02/2021 1:41 PM (Final result) Narrative: * * *Final Report* * * DATE OF EXAM: Apr 02 2021 1:41PM [facility] [id number] - CT LUNG FOLLOWUP WO IVCON / PROCEDURE REASON: Lung nodules * * * * Physician Interpretation * * * * EXAMINATION: CT LUNG FOLLOWUP WO IVCON CLINICAL HISTORY: Lung nodules Technique: Spiral CT acquisition of the chest from the thoracic inlet to the upper abdomen without contrast. MQ: CTLCS_6 Followup LDCT Patient characteristics: * Wgad-ob-Hwrzp: 1950; Age at exam: 70 years * Gender: Male * Lung Disease: Asymptomatic (no signs or symptoms of lung disease) * Number of Pack Years: 40 * Current smoker (=0) or Number of Years since Quit: 15 * Ordering provider (more content not included)... [facility] 07-11-2022 Instructions Cristy Porras APRN.CHANDRA - 07/11/2022 2:[address] Lung Screen Results The CT scan that you will have done today will show if you have any nodules (small spots) in your lungs that are suspicious for cancer. Around 90% of the patients who have this scan done are found to have at least one nodule. Most nodules are benign (not cancer) and of no harm to you at all. A specialist will make a scientific evaluation about whether or not a nodule is worrisome based on its size and shape. The radiologist who will read your scan will put it into one of four categories: LUNG-RADS Category Description Overall Probability of Malignancy Recommended Follow-Up 1 Negative No nodules and definitely benign (non-cancerous nodules) Essentially 0. 1 Year - Follow-up Low dose CT 2 Benign Appearance or Behavior Nodules with a very low likelihood of becoming cancer due to size or lack of growth Less than 1% 1 Year - Follow-up Low dose CT 3 Probably Benign Probably benign finding, short term follow-up recommended 1 to 2% 6 Months - Follow-up Low dose CT 4 Suspicious Findings for which additional diagnostic testing and/or biopsy is recommended Will be calculated based on nodule characteristics. Dependent on what is seen on the exam. At times, we may see something outside of the lungs on the scan that could be a health concern. Below are some of the most common findings: S Clinically Significant or Potentially Clinically Significant Findings (non lung cancer) Referral or additional imaging/labs depending on result. Approximately 10% of people receive this result. Coronary Artery Calcifications (Moderate or Severe) - Referral to cardiology for further work-up and recommendations. Thyroid Nodule - TSH level and Thyroid Ultrasound dependent on size, referral to endocrinology. Adrenal Nodule - Blood work and referral to endocrinology. Others Lung Cancer Screening hotline: [phone] Lung Cancer Screening [phone] Lung Cancer Screening Team: Makenna Sung CNP; Verna Naranjo CNP; Cristy Verduzco CNP; Gerardo Villanueva CNP; Keily Kent PA-C & RANDAL HuffC: [phone] documented in this encounter [facility] 07-11-2022 History of Presen t illness Narrative Images from the original note were not included. LUNG SCREENING VISIT PRIMARY CARE PHYSICIAN: Abhijeet Islas MD PULMONARY PROVIDER: None Results will be communicated via letter or electronic record if applicable. Visit Delivery: In Person Patient Visit Type: Established Current or Ex-smoker? [Ex] Exam Type: annual LDCT Number of Pack Years: 40 Number of Years since Quit: 15 The patient's smoking history is similar to prior year shared decision visit. Results will be communicated via letter or electronic record. REQUESTER: The referring provider advised the patient to have screening. HISTORY OF PRESENT ILLNESS: Homayoon Nayebzadeh is a 71 year old former smoker who presents for lung screening. Mr. Ventura is fully active and denies SANDERS. No recent respiratory infections or antibiotic use. Respiratory symptoms include: SOB: No Chest tightness: No Coughing: No Hemoptysis: No Wheezing: No Fever/Chills: No Recent Respiratory Infection: No Unintentional weight loss: No Last 6 Encounter Wt Readings: Date: Wt: 06/16/2022 67.6 kg (149 lb) 11/24/2021 66.1 kg (145 lb 12.8 oz) 08/13/2021 67.1 kg (148 lb) 04/27/2021 67.6 kg (149 lb) 04/02/2021 67.6 kg (149 lb) 02/08/2021 68.4 kg (150 lb 12.8 oz) ECOG PERFORMANCE STATUS: 0- Fully active, able to carry on all pre-disease performance w/o restriction. Modified Medical Research Crow Dyspnea Scale (MMRC) I only get breathless with strenous exercise 0 Lung Cancer Risk Factors: 1.Tobacco Use: Start Age 15, Quit Age 55 , Average packs per day 1, Pack Years 40. 2. Passive Smoke Exposure: Yes as an adult. 3. Personal hx of malignancy: No. 4. Significant exposures (1 year or more of exposure): None. 5. Race: White. 6. Education:Some college 7. BMI:Body mass index is 24.63 kg/m . 8. COPD: No 9. Pneumonia in the past 5 years: No 10. Is there a history of lung cancer in a first degree relative? No. 11. Is there a history of lung cancer in a non first degree relative? Yes 12. Is there a history of any other cancer in a first degree relative? No. PAST MEDICAL HISTORY Diagnosis Date Hernia of abdominal cavity HTN (hypertension) Hyperglycemia PPD positive age about 48, treated with inh by ID Tobacco abuse quit PAST SURGICAL HISTORY Procedure Laterality Date COLONOSCOPY FLX DX W/COLLJ SPEC WHEN PFRMD 09/24/2019 Colonoscopy ESOPHAGOGASTRODUODENOSCOPY TRANSORAL DIAGNOSTIC 09/24/2019 EGD PAST SURGICAL HISTORY OF dental work REPAIR FIRST ABDOMINAL WALL HERNIA Bilateral 08/26/2014 3D Max lite FAMILY HISTORY Problem Relation Age of Onset Diabetes Mother lisinopril (ZESTRIL) 40 mg tablet Take 1 tablet by mouth once daily. omeprazole (PRILOSEC) 20 mg capsule Take 2 capsules by mouth daily before breakfast. 1/2 hr before meal. mometasone (ELOCON) 0.1 % cream Apply to affected area once daily. For areas of itching on the back and legs. secukinumab (COSENTYX PEN, 2 PENS,) 150 mg/mL Inject 300mg (2 pens) subcutaneously every 4 weeks. FOR MAINTENANCE DOSE amLODIPine (NORVASC) 10 mg tablet Take 1 tablet by mouth once daily. ALLERGIES No Known Allergies The medications and allergies were reviewed and reconciled for this patient and deemed current. Health Maintenance Immunization History Administered Date(s) Administered COVID-19 booster vaccine, age 12+ yr, bivalent (PFIZER-BIONTECH) 06/16/2022 COVID-19 original vaccine, age 12+ yr, monovalent (PFIZER-BIONTECH - FLOWERS TOP) 06/03/2021 COVID-19 original vaccine, age 12+ yr, monovalent (PFIZER-BIONTECH - PURPLE TOP) 11/02/2020 11/23/2020 pneumococcal (PCV13) vaccine, 13 valent (PREVNAR 13) 10/14/2014 pneumococcal (PCV20) vaccine, 20 valent (PREVNAR 20) 06/16/2022 pneumococcal (PPV23) vaccine, 23 valent (PNEUMOVAX 23) 07/12/2010 10/14/2014 tetanus diphtheria (Td) vaccine, age 7+ yr, 5 Lf tetanus, PF (TENIVAC) 09/09/2015 Colonoscopy: 09/24/2019 Mammogram: DATA REVIEW I have directly visualized the testing documented: Prior Imaging: Last CT/CTA Chest/Lungs CT LUNG FOLLOWUP WO IVCON Exam End: 04/02/2021 1:41 PM (Final result) Narrative: * * *Final Report* * * DATE OF EXAM: Apr 02 2021 1:41PM [facility] 0561 - CT LUNG FOLLOWUP WO IVCON / PROCEDURE REASON: Lung nodules * * * * Physician Interpretation * * * * EXAMINATION: CT LUNG FOLLOWUP WO IVCON CLINICAL HISTORY: Lung nodules Technique: Spiral CT acquisition of the chest from the thoracic inlet to the upper abdomen without contrast. MQ: CTLCS_6 Followup LDCT Patient characteristics: * Rvpr-vt-Fbshp: 1950; Age at exam: 70 years * Gender: Male * Lung Disease: Asymptomatic (no signs or symptoms of lung disease) * Number of Pack Years: 40 * Current smoker (=0) or Number of Years since Quit: 15 * Ordering provider and NPI: CRISTY VERDUZCO [id number] * Interpreting radiologist and NPI: Subhash [id number] Exam acquisition parameters: * Exam Date: 04/02/2021 1:41 PM * Site: [facility] * * CT System Infusion Therapy Nurse: Yoostay * CT System Model: Friend Trustedo * Tube Current-Time (mA-sec): 32.5 * Peak Voltage (kV): 120 * Scan Time (sec): 4.12 * Scan Volume (z-length, cm): 27.80 * Pitch: 0.984 * Slice Thickness (mm): 1.25 * CT Dose-Length Product: 90.17 mGy*cm * CT Dose Index: 2.88mGy * CT Dose Reduction Method: Iterative recon and mAs-kVp adjusted using patient size-age COMPARISON: CT chest dated 12/14/2020 RESULT: Are nodules present? Yes, 1-5 nodules If No, go to IMPRESSION. If yes, proceed with characterization of the FIVE largest nodules. Nodule 1: This Solid nodule is located in the Left Lower Lobe on slice number 205 with an average diameter of 10.6 mm (14.3 mm x 6.9 mm). stable Nodule 2: This Solid nodule is located in the Right Upper Lobe on slice number 79 with an average diameter of 4.8 mm (5.1 mm x 4.5 mm). stable Nodule 3: This Calcified nodule is located in the Left Upper Lobe on slice number 72 with an average diameter of 3.6 mm (4.5 mm x 2.6 mm). stable Please ENSURE NODULE NUMBER is the same as in the prior screening evaluation. Other lung nodule comments: None Other findings: Central airways are patent without evidence of endobronchial lesion. Mild diffuse bronchial wall thickening is seen. There is no new focal lung consolidation. Mild left basilar atelectasis is seen. There is no pleural effusion or pneumothorax. No enlarged supraclavicular, axillary, mediastinal or hilar lymph nodes are seen. The aorta and main pulmonary artery are normal in course and caliber. Mild atherosclerotic calcifications are seen in the aortic arch. The left atrium is enlarged. There is no pericardial effusion. The thyroid gland is unremarkable. A small hiatal hernia suspected. The soft tissues of the chest wall are unremarkable. Decreased attenuation of the liver parenchyma is suggestive of hepatic steatosis. No destructive bone lesion is seen. Minimal degenerative changes are seen in the thoracic spine. Emphysema: Trivial (<5%), Paraseptal, Upper lobe Coronary Artery Calcifications: Circumflex Minimum; Left Anterior Descending Mild; Right Coronary Mild Pharmaceutical Analyst (topogram) images: No additional findings. Impression: IMPRESSION: LungRADS category: 2 LungRADS modifier: None LungRADS 0 reason: n/a Recommendations: Continue annual screening with LDCT in 12 months. Other actionable findings: Reference: [employer]. Lung CT Screening Reporting and Data System (Lung-RADS). Available at: http://www.acr.org/Quality-Safet y/Resources/LungRADS Metal Coater Operator: MARITZA Transcribe Date/Time: Apr 02 2021 4:53P Dictated by : JOMAR PEREZ MD This examination was interpreted and the report reviewed and electronically signed by: JOMAR PEREZ MD on Apr 02 2021 5:22PM EST Last CT Chest - Impression Only No resulted procedures found. Last XR Chest - Impression Only XR CHEST 2V FRONTAL/LAT Exam End: 11/24/2021 5:16 PM (Final result) Impression: IMPRESSION: No developing abnormality or acute process Metal Coater Operator: MARITZA Transcribe Date/Time: Nov 25 2021 7:00A ... Pulmonary Function Testing: No textual results found for the specified procedure(s). PHYSICAL EXAM: Deferred ASSESSMENT and RECOMMENDATIONS: 1. Screening for lung cancer: Six year risk for lung cancer: 2.5% Source: [place] I have determined that the patient is eligible for a low dose CT based on age, absence of signs or symptoms of lung cancer, and total pack years: Yes. The patient and I engaged in shared decision making, including the use of one or more decision aids, to include benefits, harms, follow-up diagnostic testing, over-diagnosis, false positive rate, and total radiation exposure. The patient understands and feels comfortable with it: Yes. The patient was counseled on the importance of adherence to annual LDCT lung cancer screening, impact of comorbidities and ability or willingness to undergo diagnosis and treatment. The patient understands and feels comfortable with it:Yes. 2. Nicotine dependence: The patient was counseled on the importance of maintaining cigarette smoking abstinence - The patient is committed to remaining abstinent from tobacco. 3. Lung Nodules: Discussed category [address] Lung 2021 imaging. MDM: Medical Decision Making: Problems: Moderate: 2+ stable chronic illnesses Data: Unique test result(s) reviewed: 1 Unique test(s) ordered: 1 Assessment requiring an independent historian(s) Risk: Low: Low risk from testing/treatment Medical Decision Making Level: 4 - Moderate Cristy Porras APRN.CNP NPI #: July 11, 2022 2:43 PM documented in this encounter [facility] 06-29-2022 Miscellaneous Notes Patient has been identified by name and date of : Yes, Provider Date Time Patient phones for refill(s): Requested Prescriptions Pending Prescriptions Disp Refills lisinopril (ZESTRIL) 40 mg tablet 90 tablet 1 Sig: Take 1 tablet by mouth once daily. Date of last office visit with pcp: Date of last office visit in primary care: 06/16/22 Last 2 Encounter Wt Readings: Date: Wt: 06/16/2022 67.6 kg (149 lb) 11/24/2021 66.1 kg (145 lb 12.8 oz) Previous labs/tests for medication: Blood Pressure: BUN (mg/dL) Date Value 06/16/2022 16 04/14/2021 22 Sodium (mmol/L) Date Value 06/16/2022 134 04/14/2021 137 Last 1 Encounter BP Readings: Date: BP: 06/16/2022 142/84 Please advise. Thank you. Angy Bennett, RN documented in this encounter [facility] 06-27-2022 Note HNO ID: [id number] Author: Zoë Larsen RDMS Service: ? Author Type: Barrel Drainer Type: Progress Notes Filed: 06/27/2022 3:57 PM Note Text: Radiology Service Progress Note PATIENT NAME: Max Ventura DATE OF SERVICE: June 27, 2022 TIME: 3:56 PM PATIENT IDENTITY VERIFICATION COMPLETED USING TWO (2) IDENTIFIERS: Name and Date of confirmed by patient verbally. FALL SCREENING: Has the patient had 2 falls in the last year or 1 fall with injury or currently using an Ambulatory Assistive Device (Walker, Cane, Wheelchair, Crutches, etc.)? No PATIENT GENDER DATA: Male PATIENT RELEVANT IMPLANT DATA REVIEWED: Not Applicable RADIOLOGY DEPARTMENT: Ultrasound PERIPHERAL IV DATA: Not applicable SIGNED BY: Zoë Larsen RDMS June 27, 2022 3:56 PM [facility] 06-27-2022 History of Presen t illness Narrative Radiology Service Progress Note PATIENT NAME: Max Ventura DATE OF SERVICE: June 27, 2022 TIME: 3:56 PM PATIENT IDENTITY VERIFICATION COMPLETED USING TWO (2) IDENTIFIERS: Name and Date of confirmed by patient verbally. FALL SCREENING: Has the patient had 2 falls in the last year or 1 fall with injury or currently using an Ambulatory Assistive Device (Walker, Cane, Wheelchair, Crutches, etc.)? No PATIENT GENDER DATA: Male PATIENT RELEVANT IMPLANT DATA REVIEWED: Not Applicable RADIOLOGY DEPARTMENT: Ultrasound PERIPHERAL IV DATA: Not applicable SIGNED BY: Zoë Larsen RDMS June 27, 2022 3:56 PM documented in this encounter [facility] 06-20-2022 Miscellaneous Notes Pt called and is notified of providers results and instructions. Pt voices understanding. Pt put through to scheduling to set up abdominal US. Makenna Babulski, RN Message left for pt to call back for results. Elena Solo MA Please let him know liver enzymes remain elevated and alk phos climbing. Recommend US RUQ and abstinence from alcohol with recheck on liver enzymes in 1 month. Telephone on 06/17/22 US ABD RIGHT UPPER QUADRANT HEPATIC FUNCTION PNL Thanks, Lamonte Koehler PA-C documented in this encounter [facility] 06-16-2022 Note HNO ID: [id number] Author: James Koehler PA-C Service: ? Author Type: Physician Supervisor Treating And Pumping Type: Progress Notes Filed: 06/16/2022 6:46 PM Note Text: 71 year old male with c/o 6-month follow-up. Primary hypertension (primary encounter diagnosis) Current meds: Lisinopril 40 mg daily Amlodipine 10 mg daily Patient is compliant with meds Yes Monitors bp at home: No. If yes, readings: Denies side effects: Yes. Chest pain: No. Dyspnea: No. Edema: No. Palpitations: No. Syncope: No. Headache: No. Dizziness: No. 2-3 weeks ago had dizziness looking up at cabinet. Ever since happens on occasion. Last 3 Encounter BP Readings: Date: BP: 11/24/2021 132/66 11/16/2021 148/80 08/13/2021 148/66 Last 2 Encounter Wt Readings: Date: Wt: 11/24/2021 66.1 kg (145 lb 12.8 oz) 08/13/2021 67.1 kg (148 lb) Component Latest Ref Rng AND Units 04/14/2021 06/03/2021 05/30/2022 WBC 3.70 - 11.00 k/uL 7.35 5.81 RBC 4.20 - 6.00 m/uL 6.40 (H) 5.83 Hemoglobin 13.0 - 17.0 g/dL 13.7 12.8 (L) Hematocrit 39.0 - 51.0 % 45.3 39.8 MCV 80.0 - 100.0 fL 70.8 (L) 68.3 (L) MCH 26.0 - 34.0 pg 21.4 (L) 22.0 (L) MCHC 30.5 - 36.0 g/dL 30.2 (L) 32.2 RDW-CV 11.5 - 15.0 % 18.2 (H) 17.8 (H) Platelet Count 150 - 400 k/uL 244 238 MPV 9.0 - 12.7 fL 10.3 10.6 Neut% % 58.1 67.5 Abs Neut (ANC) 1.45 - 7.50 k/uL 4.27 3.92 Lymph% % 29.1 20.8 Abs Lymph 1.00 - 4.00 k/uL 2.14 1.21 Plumas% % 9.8 9.1 Abs Plumas <0.87 k/uL 0.72 0.53 Eosin% % 1.8 1.4 Abs Eosin <0.46 k/uL 0.13 0.08 Baso% % 0.8 0.9 Abs Baso <0.11 k/uL 0.06 0.05 Immature Gran % % 0.4 0.3 IMMATURE GRANS (ABS) <0.10 k/uL 0.03 <0.03 NRBC /100 WBC 0.0 0.0 Absolute nRBC <0.01 k/uL <0.01 <0.01 DTYPE Auto Auto Protein, Total 6.3 - 8.0 g/dL 7.6 7.4 Albumin 3.9 - 4.9 g/dL 4.5 4.2 Calcium 8.5 - 10.2 mg/dL 9.4 9.1 Bilirubin, Total 0.2 - 1.3 mg/dL 0.4 0.3 Alkaline Phosphatase 38 - 113 U/L 104 146 (H) AST 14 - 40 U/L 51 (H) 85 (H) Glucose 74 - 99 mg/dL 127 (H) 131 (H) BUN 9 - 24 mg/dL 22 18 Creatinine 0.73 - 1.22 mg/dL 1.47 (H) 0.93 Sodium 136 - 144 mmol/L 137 133 (L) Potassium 3.7 - 5.1 mmol/L 4.3 4.4 Chloride 97 - 105 mmol/L 99 98 CO2 22 - 30 mmol/L 25 24 Anion Gap 9 - 18 mmol/L 13 11 ALT 10 - 54 U/L 56 (H) 56 (H) eGFR- 57 eGFR-All Other Races . 47 eGFR >=60 mL/min/1.73mA? 87 Hyperlipidemia, mixed Component Latest Ref Rng AND Units 08/21/2018 07/28/2020 10/29/2020 Cholesterol, Total <200 mg/dL 184 248 (H) 232 (H) Triglyceride <150 mg/dL 100 115 83 HDL Cholesterol >39 mg/dL 40 62 65 LDL Cholesterol <100 mg/dL 124 (H) 163 (H) 150 (H) Non HDL Cholesterol <130 mg/dL 144 (H) 186 (H) 167 (H) Fasting Time hrs 0 12 12 VLDL Cholesterol <30 mg/dL 20 23 17 TC:HDL Ratio <5.10 4.60 4.00 3.57 LDL:HDL Ratio <2.54 3.10 (H) 2.63 (H) 2.31 Psoriatic arthritis (hcc) Current medications: Secukinumab 300 mg subcu every 4 weeks Mometasone 0.1% once a day as needed Doing well. Not using cream Dr. Galvin Antral gastritis H. Pylori Current medication: Omeprazole 20 mg daily AC takes 1 as needed depending on meal. Current symptoms: only after spicy food or bread. Last Mg level if on PPI chronically: none. Heartburn is controlled: No. Dysphagia: No. Bloody or black stools: No. Bowel changes: No. Last EGD and/or colonoscopy: 09/24/2019. Path: 1. Antrum, biopsy (A) - Helicobacter gastritis. 2. Distal esophagus, biopsy (B) - Reactive squamous mucosa; no evidence of intestinal metaplasia or dysplasia. Alcohol dependence, daily use (hcc) Current acknowledged use: 1 bottle a night Liver enzymes elevated as above. 10/27/2020 ultrasound negative for abdominal aortic aneurysm 08/04/2017 right upper quadrant ultrasound: 6 findings suggestive of hepatic steatosis, borderline gallbladder with sludge, no splenomegaly. Component Latest Ref Rng AND Units 07/20/2016 08/05/2016 11/16/2021 Hep B Core Ab, Total Negative Positive (A) Positive (A) Positive (A) Hep C Antibody IA Negative Negative Hep B Surface Ag Negative Negative Negative Negative Hep B Surface Ab, Qual Negative Positive (A) Anemia, unspecified type Microcytic Component Latest Ref Rng AND Units 07/20/2016 05/17/2019 08/30/2019 07/28/2020 Iron 41 - 186 ug/dL 102 31 (L) 78 131 TIBC 232 - 386 ug/dL 366 486 (H) 428 (H) Transferrin Saturation 15 - 57 % 28 6 (L) 18 Vitamin B12 232 - 1,245 pg/mL 544 Folate >4.7 ng/mL >20.0 Ferritin 30.3 - 565.7 ng/mL 14.9 (L) 171.0 Psychosexual dysfunction, unspecified Doing okay Chronic pain of left knee Doing fine. Rectal prolapse Internal hemorrhoids Resolved with reduction in ER, no issues since. Managing stools carefully, avoiding strain. HISTORIES FAMILY HISTORY Problem Relation Age of Onset Diabetes Mother PAST MEDICAL HISTORY Diagnosis Date Hernia of abdominal cavity HTN (hypertension) Hyperglycemia PPD positive age about 48, treated with inh by ID Tobacco abuse quit PAST SURGICAL HISTORY (more content not included)... [facility] 06-16-2022 History of Presen t illness Narrative 71 year old male with c/o 6-month follow-up. Primary hypertension (primary encounter diagnosis) Current meds: Lisinopril 40 mg daily Amlodipine 10 mg daily Patient is compliant with meds Yes Monitors bp at home: No. If yes, readings: Denies side effects: Yes. Chest pain: No. Dyspnea: No. Edema: No. Palpitations: No. Syncope: No. Headache: No. Dizziness: No. 2-3 weeks ago had dizziness looking up at cabinet. Ever since happens on occasion. Last 3 Encounter BP Readings: Date: BP: 11/24/2021 132/66 11/16/2021 148/80 08/13/2021 148/66 Last 2 Encounter Wt Readings: Date: Wt: 11/24/2021 66.1 kg (145 lb 12.8 oz) 08/13/2021 67.1 kg (148 lb) Component Latest Ref Rng & Units 04/14/2021 06/03/2021 05/30/2022 WBC 3.70 - 11.00 k/uL 7.35 5.81 RBC 4.20 - 6.00 m/uL 6.40 (H) 5.83 Hemoglobin 13.0 - 17.0 g/dL 13.7 12.8 (L) Hematocrit 39.0 - 51.0 % 45.3 39.8 MCV 80.0 - 100.0 fL 70.8 (L) 68.3 (L) MCH 26.0 - 34.0 pg 21.4 (L) 22.0 (L) MCHC 30.5 - 36.0 g/dL 30.2 (L) 32.2 RDW-CV 11.5 - 15.0 % 18.2 (H) 17.8 (H) Platelet Count 150 - 400 k/uL 244 238 MPV 9.0 - 12.7 fL 10.3 10.6 Neut% % 58.1 67.5 Abs Neut (ANC) 1.45 - 7.50 k/uL 4.27 3.92 Lymph% % 29.1 20.8 Abs Lymph 1.00 - 4.00 k/uL 2.14 1.21 Plumas% % 9.8 9.1 Abs [place] <0.87 k/uL 0.72 0.53 Eosin% % 1.8 1.4 Abs Eosin <0.46 k/uL 0.13 0.08 Baso% % 0.8 0.9 Abs Baso <0.11 k/uL 0.06 0.05 Immature Gran % % 0.4 0.3 IMMATURE GRANS (ABS) <0.10 k/uL 0.03 <0.03 NRBC /100 WBC 0.0 0.0 Absolute nRBC <0.01 k/uL <0.01 <0.01 DTYPE Auto Auto Protein, Total 6.3 - 8.0 g/dL 7.6 7.4 Albumin 3.9 - 4.9 g/dL 4.5 4.2 Calcium 8.5 - 10.2 mg/dL 9.4 9.1 Bilirubin, Total 0.2 - 1.3 mg/dL 0.4 0.3 Alkaline Phosphatase 38 - 113 U/L 104 146 (H) AST 14 - 40 U/L 51 (H) 85 (H) Glucose 74 - 99 mg/dL 127 (H) 131 (H) BUN 9 - 24 mg/dL 22 18 Creatinine 0.73 - 1.22 mg/dL 1.47 (H) 0.93 Sodium 136 - 144 mmol/L 137 133 (L) Potassium 3.7 - 5.1 mmol/L 4.3 4.4 Chloride 97 - 105 mmol/L 99 98 CO2 22 - 30 mmol/L 25 24 Anion Gap 9 - 18 mmol/L 13 11 ALT 10 - 54 U/L 56 (H) 56 (H) eGFR- 57 eGFR-All Other Races . 47 eGFR >=60 mL/min/1.73m 87 Hyperlipidemia, mixed Component Latest Ref Rng & Units 08/21/2018 07/28/2020 10/29/2020 Cholesterol, Total <200 mg/dL 184 248 (H) 232 (H) Triglyceride <150 mg/dL 100 115 83 HDL Cholesterol >39 mg/dL 40 62 65 LDL Cholesterol <100 mg/dL 124 (H) 163 (H) 150 (H) Non HDL Cholesterol <130 mg/dL 144 (H) 186 (H) 167 (H) Fasting Time hrs 0 12 12 VLDL Cholesterol <30 mg/dL 20 23 17 TC:HDL Ratio <5.10 4.60 4.00 3.57 LDL:HDL Ratio <2.54 3.10 (H) 2.63 (H) 2.31 Psoriatic arthritis (hcc) Current medications: Secukinumab 300 mg subcu every 4 weeks Mometasone 0.1% once a day as needed Doing well. Not using cream Dr. Galvin Antral gastritis H. Pylori Current medication: Omeprazole 20 mg daily AC takes 1 as needed depending on meal. Current symptoms: only after spicy food or bread. Last Mg level if on PPI chronically: none. Heartburn is controlled: No. Dysphagia: No. Bloody or black stools: No. Bowel changes: No. Last EGD and/or colonoscopy: 09/24/2019. Path: 1. Antrum, biopsy (A) - Helicobacter gastritis. 2. Distal esophagus, biopsy (B) - Reactive squamous mucosa; no evidence of intestinal metaplasia or dysplasia. Alcohol dependence, daily use (hcc) Current acknowledged use: 1 bottle a night Liver enzymes elevated as above. 10/27/2020 ultrasound negative for abdominal aortic aneurysm 08/04/2017 right upper quadrant ultrasound: 6 findings suggestive of hepatic steatosis, borderline gallbladder with sludge, no splenomegaly. Component Latest Ref Rng & Units 07/20/2016 08/05/2016 11/16/2021 Hep B Core Ab, Total Negative Positive (A) Positive (A) Positive (A) Hep C Antibody IA Negative Negative Hep B Surface Ag Negative Negative Negative Negative Hep B Surface Ab, Qual Negative Positive (A) Anemia, unspecified type Microcytic Component Latest Ref Rng & Units 07/20/2016 05/17/2019 08/30/2019 07/28/2020 Iron 41 - 186 ug/dL 102 31 (L) 78 131 TIBC 232 - 386 ug/dL 366 486 (H) 428 (H) Transferrin Saturation 15 - 57 % 28 6 (L) 18 Vitamin B12 232 - 1,245 pg/mL 544 Folate >4.7 ng/mL >20.0 Ferritin 30.3 - 565.7 ng/mL 14.9 (L) 171.0 Psychosexual dysfunction, unspecified Doing okay Chronic pain of left knee Doing fine. Rectal prolapse Internal hemorrhoids Resolved with reduction in ER, no issues since. Managing stools carefully, avoiding strain. HISTORIES FAMILY HISTORY Problem Relation Age of Onset Diabetes Mother PAST MEDICAL HISTORY Diagnosis Date Hernia of abdominal cavity HTN (hypertension) Hyperglycemia PPD positive age about 48, treated with inh by ID Tobacco abuse quit PAST SURGICAL HISTORY Procedure Laterality Date COLONOSCOPY FLX DX W/COLLJ SPEC WHEN PFRMD 09/24/2019 Colonoscopy ESOPHAGOGASTRODUODENOSCOPY TRANSORAL DIAGNOSTIC 09/24/2019 EGD PAST SURGICAL HISTORY OF dental work REPAIR FIRST ABDOMINAL WALL HERNIA Bilateral 08/26/2014 3D Max lite Social History Tobacco Use Smoking status: Former Packs/day: 1.00 Years: 40.00 Pack years: 40.00 Types: Cigarettes Quit date: 03/27/2006 Years since quittin.2 Smokeless tobacco: Never Tobacco comments: continues nicotine gum Substance Use Topics Alcohol use: Yes Alcohol/week: 6.7 standard drinks Types: 8 Glasses of wine per week Comment: 1bottle and 1 glass of wine daily Drug use: No ACTIVE PROBLEM LIST Psychosexual Dysfunction, Unspecified Neoplasm of Uncertain Behavior of Skin Bilateral Inguinal Hernia Htn (Hypertension) Ppd Positive Anemia Psoriatic Arthritis (Hcc) Hyperlipidemia, Mixed Alcohol Dependence, Daily Use (Hcc) Hyperglycemia Lung Nodule Current Outpatient Medications Medication Sig Dispense Refill omeprazole (PRILOSEC) 20 mg capsule Take 2 capsules by mouth daily before breakfast. 1/2 hr before meal. 60 capsule 0 mometasone (ELOCON) 0.1 % cream Apply to affected area once daily. For areas of itching on the back and legs. 45 g 3 secukinumab (COSENTYX PEN, 2 PENS,) 150 mg/mL Inject 300mg (2 pens) subcutaneously every 4 weeks. FOR MAINTENANCE DOSE 6 mL 3 lisinopril (ZESTRIL, PRINIVIL) 40 mg tablet Take 1 tablet by mouth once daily. 90 tablet 1 amLODIPine (NORVASC) 10 mg tablet Take 1 tablet by mouth once daily. 90 tablet 3 No current facility-administered medications for this visit. BP CONTROLLED (<130/80) Never done SHINGRIX VACCINE(1 of 2) Never done DTAP,TDAP,TD(1 - Tdap) due on 09/10/2015 PNEUMOCOCCAL: 65+(3 - PCV) due on 10/15/2015 COVID-19 VACCINE(4 - Booster for Pfizer series) due on 07/29/2021 INFLUENZA(1) due on 11/25/2021 ADVANCE DIRECTIVE DISCUSSION Never done DEPRESSION ASSESSMENT Never done EXAM: BP 142/84 Pulse 62 Resp 16 Wt 67.6 kg (149 lb) SpO2 96% BMI 24.79 kg/m Pleasant well appearing older man, in no acute distress, usual cheerful demeanor. Alert and oriented all spheres. Normal affect and cognition. Speech normal. No deficits to learning or comprehension. Skin warm, dry, pink to lips and nailbeds. Normal turgor. Respirations regular and unlabored. HEENT: NCAT. No scleral icterus or conjunctival injection. TM's clear. Nose and oropharynx free from injection or lesion. Oral membranes moist and pink. No cervical lymph nodes. Thyroid non-tender, no masses, or enlargement. Carotids pulses 2+/4+ without bruits. No JVD with HOB at 30 degrees. Chest is normal shape. Lungs are clear to all hughes with good air exchange through out. HRRR without murmur or gallop. No lifts, heaves, or rubs. Abdomen: active bowel sounds throughout, soft, nontender, no masses or organomegaly. No CVAT. Extrem: no clubbing or cyanosis. Edema: none. Extremities are warm and pink with prompt capillary refill. ASSESSMENT/PLAN: 1. Primary hypertension - ICD9: 401.9, ICD10: I10 (primary diagnosis) - good control - Continue current medication(s) - Recommended regular aerobic exercise. - Recommend home blood pressure monitoring, to bring results in on next visit - Goal of BP <130/80 - CBC + DIFF - COMP METABOLIC PANEL 2. Hyperlipidemia, mixed - ICD9: 272.2, ICD10: E78.2 - good control - Continue current medication. 3. Psoriatic arthritis (HCC) - ICD9: 696.0, ICD10: L40.50 Follows with derm: managed well on Cosyntex. 4. Alcohol dependence, daily use (HCC) - ICD9: 303.91, ICD10: F10.20 Discussed level of use, elevated liver enzymes, risk Encouraged to try to cut back to 7/10 per week. - COMP METABOLIC PANEL 5. Anemia, unspecified type - ICD9: 285.9, ICD10: D64.9 Recheck labs 6. Psychosexual dysfunction, unspecified - ICD9: 302.70, ICD10: F52.9 States not an issue right now. 7. Chronic pain of left knee - ICD9: 719.46, 338.29, ICD10: M25.562, G89.29 Improved from last visit 8. Rectal prolapse - ICD9: 569.1, ICD10: K62.3 Resolved without recurrence. 9. Internal hemorrhoids - ICD9: 455.0, ICD10: K64.8 Resolved issues though very cautious to maintain good bowel regimen. 10. Need for vaccination - ICD9: V05.9, ICD10: Z23 - PFIZER-BIONTECH COVID-19 BIVALENT BOOSTER VACCINE, AGE 12+ YR 11. Hyperglycemia - ICD9: 790.29, ICD10: R73.9 Recheck lab - HGB A1C 12. Elevated liver enzymes - ICD9: 790.5, ICD10: R74.8 Recheck lab - COMP METABOLIC PANEL 13. Helicobacter pylori gastritis - ICD9: 535.10, 041.86, ICD10: K29.70, B96.81 Treated, no current sx. F/u 6 months. James Koehler PA-C documented in this encounter [facility] 06-14-2022 Miscellaneous Notes Patient returned call, scheduled 6 month follow-up. Mely Allen LPN Left a message for pt to call the office and ask to speak to a nurse. Chyna Canela LPN Please contact patient set up follow up appointment. Alecia Laird MA Let patient know refill for omeprazole only sent for 30 days. At last appt he wa asked to f/u in 6 months which would of been Apr 2022 but never made an appt. Should make appt to continue getting refills. The following approved medication requests have been transmitted electronically. Requested Prescriptions Signed Prescriptions Disp Refills omeprazole (PRILOSEC) 20 mg capsule 60 capsule 0 Sig: Take 2 capsules by mouth daily before breakfast. 1/2 hr before meal. Authorizing Provider: LIVE PIERRE MD pt is out of medication Patient has been identified by name and date of : Yes Last office visit in this department: 11/24/2021 RX INSTRUCTIONS: Patient aware RX will be sent to pharmacy. No need to notify patient. Patient phones requesting refills as follows: Requested Prescriptions Pending Prescriptions Disp Refills omeprazole (PRILOSEC) 20 mg capsule 180 capsule 1 Sig: Take 2 capsules by mouth daily before breakfast. 1/2 hr before meal. Please review and advise. Funmilayo Singh documented in this encounter [facility] 05-11-2022 Instructions Fawad Galvin MD - 05/11/2022 2:14 PM EST Contact us in early November 2022 to get your follow-up appointment. Q: How do I obtain a follow-up appointment in 10 months with the dermatology team at the [facility]? A: About 3 months prior to your desired appointment time, please contact our appointment center to request an appointment with the [facility]. You can either: Call the central appointment number, Request an appointment online at: [email or web address] Use your [email or web address] appointment request function All of the clinical staff at [facility] work together as a closely-knit team to provide our patients the very best dermatologic care. Your follow-up appointment may be scheduled with one of our highly-trained Nurse Practitioners or Physician Assistants. documented in this encounter [facility] 05-11-2022 History of Presen t illness Narrative Images from the original note were not included. Department of Dermatology Fawad Galvin MD 05/11/2022 Last visit in Dermatology: 11/11/2021 Objective/Assessment/Plan 1. Psoriasis Under good control at present. No active lesions. Continue the Cosentyx as before. 2. Medication monitoring encounter Related Procedures * CBC + Auto Diff * Comp Metabolic Panel 3. Other eczema Related Medications mometasone (ELOCON) 0.1 % cream Apply to affected area once daily. For areas of itching on the back and legs. 4. Contact dermatitis/other eczema Left Lower Leg - Anterior, Left Lower Leg - Posterior, Mid Back, Right Lower Leg - Anterior, Right Lower Leg - Posterior Subacute eczematous dermatitis. Mometasone cream once daily as needed for rash. Requested Prescriptions Signed Prescriptions Disp Refills mometasone (ELOCON) 0.1 % cream 45 g 3 Sig: Apply to affected area once daily. For areas of itching on the back and legs. Office Visit on 05/11/22 CBC + DIFF COMP METABOLIC PANEL mometasone (ELOCON) 0.1 % cream Follow-up as noted below or as needed. Chief Complaint: Patient presents with: Psoriasis Subjective and Objective No flowsheet data found. HPI: Max Ventura is a 71 year old male who presents for psoriasis follow-up. Patient is currently on Cosentyx. He reports improvement since last office visit while on Cosentyx. Patient has complaints of pruritis to bilateral upper extremities today. Patient continues to follow-up with pulmonology. Past medical history is reviewed. Medication list is reviewed. Review of Systems Constitutional: Negative for chills, fatigue and fever. HENT: Negative for mouth sores and sinus pressure. Respiratory: Negative for cough and shortness of breath. Gastrointestinal: Negative for abdominal pain, diarrhea, nausea and vomiting. Genitourinary: Negative for difficulty urinating, flank pain and hematuria. Neurological: Negative for seizures, syncope and headaches. Physical Exam included: As noted. Intake completed by Kym Doyle LPN Attending signature: Fawad Galvin MD This note is completed at 2:14 PM on 05/11/2022 and reflects the services provided at the time of the appointment. I agree with the Chief Complaint, ROS, and Past Histories independently gathered by the clinical operations support coordinator and the remaining scribed note accurately describes my personal service to the patient. documented in this encounter [facility] 04-11-2022 Miscellaneous Notes [employer] patient assistance approval letter received from [employer] sent to scan into patient's chart. Funmilayo Erwin Ma April 11, 2022 1:54 PM documented in this encounter [facility] 03-02-2022 Miscellaneous Notes Filiberto De Luna, I just sent the refill for this patient. Is there anything else I need to do? Thanks! Christiano RX sent. Monalisa Quan PA-C March 02, 2022 1:55 PM Galina, I am happy to refill this, but I have told this patient to follow up with Dr. Galvin numerous times and I would prefer if he could see him due to this patient's complex history. Thank you! Images from the original note were not included. Received the following message via CC'd Charts: Annamarie Lanier [facility] Monalisa Quan PA-C; Galina Hollowaylo, patient is asking for call back from your office regarding patient assistance program application. Thank you, Annamarie [facility] Called and spoke with patient to inquire about message above. Patient reports they received letter from [employer] Patient Assistance explaining his [employer] Program Assistance expires 03/26/2022. Per patient, letter states an new Rx is needed for Cosentyx by 03/10/2022 and [employer] will be faxing this information to prescribing provider's office. Office has not received any new request from [employer] at this time. Let patient know patient's current request will be forwarded to prescribing provider, Monalisa Quan PA-C. Current prescription is good through 03/2022 but [employer] Patient Assistance will before current prescription is complete. Patient's next appointment is not until 05/11/[address] Fawad Galvin MD. Please advise. Clinical staff will contact patient by phone to follow-up with patient's request, as directed. documented in this encounter [facility] 02-10-2022 Miscellaneous Notes Spoke to patient. Relayed Monalisa Quan PA-C message below. Patient has been scheduled for follow up appointment with Fawad Galvin MD. Stephy, I told him to follow up with Dr. Galvin several times now. Please have him do this! Alcohol in moderation should be fine. Christiano Patient phoned with questions regarding COSENTYX Patient asking if any follow up or monitoring needed while taking this medication? Patient asking if any special diet while taking this medication also Patient drinks wine is that ok? Please advise patient documented in this encounter [facility] 02-10-2022 History of Presen t illness Narrative Patient presents for self injection teaching of Cosentyx. Pt brought own medication. Reviewed with patient proper technique of storage of medication, site preparation, hand hygiene, administration, and disposal of supplies. Demonstrated and administered first auto-pen for pt and then had him complete teachback at this time. Verbalized understanding of all instructions. Spent 10 minutes of appt with face to face education. Pt alert and oriented. Shanti Redman LPN documented in this encounter [facility] 02-10-2022 Miscellaneous Notes Patient scheduled to have nurse visit to assist with injection teaching. Please place administration order at this time. Shanti Redman LPN documented in this encounter [facility] 12-02-2021 Miscellaneous Notes Patient returned call and given provider's message below with verbalized understanding. Left message for patient. Let him know that his hep b is negative. I will try and call his ID Today or tomorrow and verify if anything else needs to be done to do a biologic. documented in this encounter [facility] 12-01-2021 Miscellaneous Notes Noted, waiting for this to finalize. Bernice Ibarra Ma Yes. Sorry. It was not showing it was drawn yet when I put that in. Dr. Islas were you wanting pt to get Hep B viral testing done? If so, this is currently in process as of yesterday. Bernice Ibarra Ma Can we remind him to do the additional blood test I recommended. documented in this encounter [facility] 11-24-2021 Miscellaneous Notes Patient here in office for appt today. Left message for patient to return call. Namrata Ge Ma Can please let patient know that I received the reading back on the ultrasound, which was negative for any blood clots. Roxanne Whitfield APRN.CHANDRA documented in this encounter [facility] 11-24-2021 History of Presen t illness Narrative Patient presents with: Results: Here to follow up on labs and discuss medications HPI: Patient presents today for office visit for follow up. 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 Derm is wanting to try biologics. He was treated for latent tb [place] [address] Sanchez. He had hep b exposure. He does not want to go back unless he has to . He has no current cough or congestion. No weight loss. No gi issues. MEDICATIONS: Current Outpatient Medications Medication Sig amLODIPine (NORVASC) 10 mg tablet Take 1 tablet by mouth once daily. lisinopril (ZESTRIL, PRINIVIL) 40 mg tablet Take 1 tablet by mouth once daily. omeprazole (PRILOSEC) 20 mg capsule Take 2 capsules by mouth daily before breakfast. 1/2 hr before meal. No current facility-administered medications for this visit. ALLERGIES: ALLERGIES No Known Allergies PAST MEDICAL HISTORY Diagnosis Date Hernia of abdominal cavity HTN (hypertension) Hyperglycemia PPD positive age about 48, treated with inh by ID Tobacco abuse quit PAST SURGICAL HISTORY Procedure Laterality Date COLONOSCOPY FLX DX W/COLLJ SPEC WHEN PFRMD 09/24/2019 Colonoscopy ESOPHAGOGASTRODUODENOSCOPY TRANSORAL DIAGNOSTIC 09/24/2019 EGD PAST SURGICAL HISTORY OF dental work REPAIR FIRST ABDOMINAL WALL HERNIA Bilateral 08/26/2014 3D Max lite FAMILY HISTORY Problem Relation Age of Onset Diabetes Mother Social History Tobacco Use Smoking status: Former Packs/day: 1.00 Years: 40.00 Pack years: 40.00 Types: Cigarettes Quit date: 03/27/2006 Years since quittin.6 Smokeless tobacco: Never Tobacco comments: continues nicotine gum Substance Use Topics Alcohol use: Yes Alcohol/week: 6.7 standard drinks Types: 8 Glasses of wine per week Comment: 1bottle and 1 glass of wine daily Drug use: No Reviewed current medications, allergies, past medical history, surgical history, family history and social history today. REVIEW OF SYSTEMS All other reviewed and negative other than HPI. VITALS: BP 148/68 Pulse 68 Ht 165.1 cm (5' 5 ) Wt 66.1 kg (145 lb 12.8 oz) SpO2 97% BMI 24.26 kg/m Last 4 Encounter Wt Readings: Date: Wt: 08/13/2021 67.1 kg (148 lb) 04/27/2021 67.6 kg (149 lb) 04/02/2021 67.6 kg (149 lb) 02/08/2021 68.4 kg (150 lb 12.8 oz) PHYSICAL EXAMINATION: General appearance: Well appearing, alert, in no acute distress, well-hydrated, well nourished. Skin: Skin color, texture, turgor normal, no suspicious rashes or lesions Head: Normocephalic, no masses, lesions, tenderness or abnormalities Eyes: Anicteric sclera. Pupils are equally round and reactive to light. Extraocular movements are intact. Heart: RRR without murmur, gallop, or rubs. No ectopy Abdomen: Normal abdominal exam, Abdomen soft, non-tender. Bowel sounds normal. No masses, organomegaly Extremities: No deformities, edema, skin discoloration, clubbing or cyanosis. Good capillary refill. Musculoskeletal: No joint swelling, deformity, or tenderness ASSESSMENT/PLAN: 1. Exposure to hepatitis B - ICD9: V01.79, ICD10: Z20.5 (primary diagnosis) - check hep b labs - HEP B VIRAL DNA TORY 2. Primary hypertension - ICD9: 401.9, ICD10: I10 - good control - Continue current medication(s) - Goal of BP <130/80 - LISINOPRIL 40 MG TABLET 3. Dyspepsia - ICD9: 536.8, ICD10: R10.13 - continue meds. - OMEPRAZOLE 20 MG CAPSULE,DELAYED RELEASE 4. TB lung, latent - ICD9: 795.51, ICD10: Z22.7 - recheck xray and if ok and hep b load is negative. Discuss with Dr. Sanchez, ID, if cleared for any bioligics per derm 5. Psoriasis - ICD9: 696.1, ICD10: L40.9 Abhijeet Islas documented in this encounter [facility] 11-22-2021 Miscellaneous Notes Placed call to both patient and daughter with no answer. Left messages with both. Advised to call back for results and referral information. Try again later. Paris Bejarano Still shows evidence of exposure to tb and hep b.get chest xray that has been ordered. Also see ID to be on safe side to see if we can use meds. documented in this encounter [facility] 11-16-2021 Miscellaneous Notes Noted. Roxanne Whitfield APRN.CHANDRA Contacted patient and updated him regarding provider's message. Patient aknowledged and stated he would discuss with provider at his appointment on Monday. Advised patient would let his provider know. Was contacted about using humira given his hx of latent tb and expoure to hepatitis. \ Lets repeat labs and do a chest xray as initial work up. documented in this encounter [facility] 09-30-2021 Miscellaneous Notes Called left message, patient needs to see Dr Murillo in office for ER follow up rectal prolapse and hemorrhoids Indra Helms documented in this encounter [facility] 08-13-2021 History of Presen t illness Narrative 71 year old male with c/o started with diarrhea last night, Hemorrhoid popped out, bleeding. In a lot of pain. HISTORIES FAMILY HISTORY Problem Relation Age of Onset Diabetes Mother PAST MEDICAL HISTORY Diagnosis Date Hernia of abdominal cavity HTN (hypertension) Hyperglycemia PPD positive age about 48, treated with inh by ID Tobacco abuse quit PAST SURGICAL HISTORY Procedure Laterality Date COLONOSCOPY FLX DX W/COLLJ SPEC WHEN PFRMD 09/24/2019 Colonoscopy ESOPHAGOGASTRODUODENOSCOPY TRANSORAL DIAGNOSTIC 09/24/2019 EGD PAST SURGICAL HISTORY OF dental work REPAIR FIRST ABDOMINAL WALL HERNIA Bilateral 08/26/2014 3D Max lite Social History Tobacco Use Smoking status: Former Smoker Packs/day: 1.00 Years: 40.00 Pack years: 40.00 Types: Cigarettes Quit date: 03/27/2006 Years since quittin.3 Smokeless tobacco: Never Used Tobacco comment: continues nicotine gum Substance Use Topics Alcohol use: Yes Alcohol/week: 6.7 standard drinks Types: 8 Glasses of wine per week Comment: 1bottle and 1 glass of wine daily Drug use: No ACTIVE PROBLEM LIST Psychosexual Dysfunction, Unspecified Neoplasm of Uncertain Behavior of Skin Bilateral Inguinal Hernia Htn (Hypertension) Ppd Positive Anemia Psoriatic Arthritis (Hcc) Hyperlipidemia, Mixed Alcohol Dependence, Daily Use (Hcc) Hyperglycemia Lung Nodule Current Outpatient Medications Medication Sig Dispense Refill amLODIPine (NORVASC) 10 mg tablet Take 1 tablet by mouth once daily. 90 tablet 3 lisinopril (ZESTRIL, PRINIVIL) 40 mg tablet Take 1 tablet by mouth once daily. 30 tablet 5 omeprazole (PRILOSEC) 20 mg capsule Take 2 capsules by mouth daily before breakfast. 1/2 hr before meal. 60 capsule 5 apremilast (OTEZLA STARTER) 10 mg (4)-20 mg (4)-30 mg (47) tablet dose pack Take as directed per starter pack directions 55 tablet 0 apremilast (OTEZLA) 30 mg tablet Take 1 tablet by mouth twice daily. 180 tablet 3 mycophenolate Mofetil (CELLCEPT) 500 mg tablet Take 2 tablets by mouth twice daily. Take two (2) 500 mg tablets = 1,000 mg. 60 tablet 3 triamcinolone acetonide (KENALOG) 0.1 % ointment Apply to affected area twice daily. Apply to affected areas of skin Monday-Monday. 453.6 g 0 calcipotriene (DOVONEX) 0.005 % oint Apply to any area affected by psoriasis two times daily for maintenance (Monday-Monday). 120 g 5 No current facility-administered medications for this visit. BP CONTROLLED (<130/80) Never done SHINGRIX VACCINE(1 of 2) Never done DTAP,TDAP,TD(1 - Tdap) due on 09/10/2015 DEPRESSION SCREENING due on 09/08/2016 ADVANCE DIRECTIVE DISCUSSION Never done EXAM: BP 148/66 Pulse 76 Temp 36.6 C (97.9 F) (Tympanic) Wt 67.1 kg (148 lb) SpO2 96% BMI 24.63 kg/m Pleasant older man in no acute distress. Alert and oriented all spheres. Normal affect and cognition. Speech normal. No deficits to learning or comprehension. Skin warm, dry, pink to lips and nailbeds. Normal turgor. Respirations regular and unlabored. Chest is normal shape. Lungs are clear to all hughes with good air exchange through out. HRRR without murmur or gallop. No lifts, heaves, or rubs. Extrem: no clubbing or cyanosis. Edema: none. Extremities are warm and pink with prompt capillary refill. Rectal exam prolapsed rectum with large 4 x 2 cm firm polypoid bleeeding mass protruding. Unable to reduce rectum. ASSESSMENT/PLAN: 1. Rectal prolapse - ICD9: 569.1, ICD10: K62.3 (primary diagnosis) - CONSULT TO GENERAL SURGERY 2. Rectal mass - ICD9: 787.99, ICD10: K62.89 - CONSULT TO GENERAL SURGERY Consulted surgery but told no one available to manage in the office. Dr. Murillo on-call in surgery at [facility]. Advised patient to go to [facility] ED and they will contact Dr. Murillo to see him. He didn't want to go to [facility] initially but I explained he couldn't go through the weekend in this status: this is fastest way to get eval and treatment. Report called to ED physician. James Koehler PA-C documented in this encounter [facility] 07-07-2021 Miscellaneous Notes Patient returned call and given provider's message below and patient verbalized understanding. Gulshan Aceves RN Left message for patient to return call. Namrata Ge Ma bp is improving. Several are at goal. Stay on current meds. Manual Readin/80 Pulse: 62 BP Sukumar average: 140/78 P: 63 Repeat BP Check: 154/76 P64 #1 139/77 P61 #2 139/85 P60 #3 135/73 P72 #4 143/81 P60 #5 130/73 P61 #6 Reason for blood pressure check - Last BP elevated and Medication adjustment Patient is: Taking medication as prescribed Yes Took medication today Yes If no, date medication last taken N/A Experiencing side effects No BP continued to be elevated at nurse visit 06/03/21. Amlodipine was increased to 10mg daily. Tolerating medication change well. Denies any chest pain, shortness of breath, dizziness, or headaches. No caffeine use. Past personal history of tobacco use; no current exposure. Alert and oriented. Pt has been identified by name and birthdate: Yes Allergies reviewed: Yes Latex allergy: no. Medication - prescribed and OTC reviewed and updated: Yes Do you need any prescription refills prior to your next visit: No Health Maintenance: Reviewed and not up to date and provider notified Patient advised that he would be contacted after review by PCP. Shanti Redman LPN documented in this encounter [facility] 07-05-2021 History of Presen t illness Narrative Manual Readin/80 Pulse: 62 BP Sukumar average: 140/78 P: 63 Repeat BP Check: 154/76 P64 #1 139/77 P61 #2 139/85 P60 #3 135/73 P72 #4 143/81 P60 #5 130/73 P61 #6 Reason for blood pressure check - Last BP elevated and Medication adjustment Patient is: Taking medication as prescribed Yes Took medication today Yes If no, date medication last taken N/A Experiencing side effects No BP continued to be elevated at nurse visit 06/03/21. Amlodipine was increased to 10mg daily. Tolerating medication change well. Denies any chest pain, shortness of breath, dizziness, or headaches. No caffeine use. Past personal history of tobacco use; no current exposure. Alert and oriented. Pt has been identified by name and birthdate: Yes Allergies reviewed: Yes Latex allergy: no. Medication - prescribed and OTC reviewed and updated: Yes Do you need any prescription refills prior to your next visit: No Health Maintenance: Reviewed and not up to date and provider notified Patient advised that he would be contacted after review by PCP. Shanti Redman LPN documented in this encounter [facility] 02-08-2021 Miscellaneous Notes Protocol recommends see pcp in 4 hours. Unable to do VV. Patient agreeable to for evaluation. Reason for Disposition Wheezing is present Answer Assessment - Initial Assessment Questions 1. ONSET: Last Monday 2. SEVERITY Comes and goes 3. SPUTUM: Mostly white, yellow/green somtimes 4. HEMOPTYSIS: No 5. DIFFICULTY BREATHING: Breathing through mouth since has stuffy nose, otherwise no SOB 6. FEVER: No 7. CARDIAC HISTORY: Taking BP medication 8. LUNG HISTORY: No 9. PE RISK FACTORS: No 10. OTHER SYMPTOMS: Blowing nose- mostly white, sometimes yellow/greenish. Sore throat from coughing. Able to swallow without issues. Wheeze. Taking dayquil- not helping. 11. : N/A 12. TRAVEL: Fully vaccinated. No exposure to covid. No flu exposure. Protocols used: COUGH - ACUTE [id number] documented in this encounter [facility] documented as of this encounter (statuses as of 07/05/2021) [facility] History of Past illness Narrative* Problem Noted Date Resolved Date Tobacco abuse 07/10/2014 12/11/2017 ELEV BL PRES W/O HYPERTN 05/03/2006 015 documented as of this encounter (statuses as of 07/07/2021) [facility] History of Past illness Narrative* Problem Noted Date Resolved Date Tobacco abuse 07/10/2014 12/11/2017 ELEV BL PRES W/O HYPERTN 05/03/2006 015 documented as of this encounter (statuses as of 07/21/2021) [facility] History of Past illness Narrative* Problem Noted Date Resolved Date Tobacco abuse 07/10/2014 12/11/2017 ELEV BL PRES W/O HYPERTN 05/03/2006 015 documented as of this encounter (statuses as of 08/13/2021) [address] History of Past illness Narrative* Problem Noted Date Resolved Date Tobacco abuse 07/10/2014 12/11/2017 ELEV BL PRES W/O HYPERTN 05/03/2006 015 documented as of this encounter (statuses as of 11/16/2021) [address] History of Past illness Narrative* Problem Noted Date Resolved Date Tobacco abuse 07/10/2014 12/11/2017 ELEV BL PRES W/O HYPERTN 05/03/2006 015 documented as of this encounter (statuses as of 11/22/2021) [address]16-2015 History of Past illness Narrative* Problem Noted Date Resolved Date Tobacco abuse 07/10/2014 12/11/2017 ELEV BL PRES W/O HYPERTN 05/03/2006 015 documented as of this encounter (statuses as of 11/24/2021) [address]16-2015 History of Past illness Narrative* Problem Noted Date Resolved Date Tobacco abuse 07/10/2014 12/11/2017 ELEV BL PRES W/O HYPERTN 05/03/2006 015 documented as of this encounter (statuses as of 11/24/2021) [address]16[address]2015 History of Past illness Narrative* Problem Noted Date Resolved Date Tobacco abuse 07/10/2014 12/11/2017 ELEV BL PRES W/O HYPERTN 05/03/2006 015 documented as of this encounter (statuses as of 12/01/2021) [address]16-2015 History of Past illness Narrative* Problem Noted Date Resolved Date Tobacco abuse 07/10/2014 12/11/2017 ELEV BL PRES W/O HYPERTN 05/03/2006 015 documented as of this encounter (statuses as of 12/02/2021) [address]16[address]2015 History of Past illness Narrative* Problem Noted Date Resolved Date Tobacco abuse 07/10/2014 12/11/2017 ELEV BL PRES W/O HYPERTN 05/03/2006 015 documented as of this encounter (statuses as of 12/08/2021) [address]16-2015 History of Past illness Narrative* Problem Noted Date Resolved Date Tobacco abuse 07/10/2014 12/11/2017 ELEV BL PRES W/O HYPERTN 05/03/2006 015 documented as of this encounter (statuses as of 02/10/2022) [address]16[address]2015 History of Past illness Narrative* Problem Noted Date Resolved Date Tobacco abuse 07/10/2014 12/11/2017 ELEV BL PRES W/O HYPERTN 05/03/2006 015 documented as of this encounter (statuses as of 02/10/2022) [address]16[address]2015 History of Past illness Narrative* Problem Noted Date Resolved Date Tobacco abuse 07/10/2014 12/11/2017 ELEV BL PRES W/O HYPERTN 05/03/2006 015 documented as of this encounter (statuses as of 02/10/2022) [address]16[address]2015 History of Past illness Narrative* Problem Noted Date Resolved Date Tobacco abuse 07/10/2014 12/11/2017 ELEV BL PRES W/O HYPERTN 05/03/2006 015 documented as of this encounter (statuses as of 03/02/2022) [address]16[address]2015 History of Past illness Narrative* Problem Noted Date Resolved Date Tobacco abuse 07/10/2014 12/11/2017 ELEV BL PRES W/O HYPERTN 05/03/2006 015 documented as of this encounter (statuses as of 04/11/2022) [address]16-2015 History of Past illness Narrative* Problem Noted Date Resolved Date Tobacco abuse 07/10/2014 12/11/2017 ELEV BL PRES W/O HYPERTN 05/03/2006 015 documented as of this encounter (statuses as of 05/12/2022) [address]16[address]2015 History of Past illness Narrative* Problem Noted Date Resolved Date Tobacco abuse 07/10/2014 12/11/2017 ELEV BL PRES W/O HYPERTN 05/03/2006 015 documented as of this encounter (statuses as of 06/14/2022) [address]16-2015 History of Past illness Narrative* Problem Noted Date Resolved Date Tobacco abuse 07/10/2014 12/11/2017 ELEV BL PRES W/O HYPERTN 05/03/2006 015 documented as of this encounter (statuses as of 06/17/2022) [address] History of Past illness Narrative* Problem Noted Date Resolved Date Tobacco abuse 07/10/2014 12/11/2017 ELEV BL PRES W/O HYPERTN 05/03/2006 015 documented as of this encounter (statuses as of 06/21/2022) [address] History of Past illness Narrative* Problem Noted Date Resolved Date Tobacco abuse 07/10/2014 12/11/2017 ELEV BL PRES W/O HYPERTN 05/03/2006 015 documented as of this encounter (statuses as of 06/30/2022) [address] History of Past illness Narrative* Problem Noted Date Resolved Date Tobacco abuse 07/10/2014 12/11/2017 ELEV BL PRES W/O HYPERTN 05/03/2006 015 documented as of this encounter (statuses as of 07/12/2022) [address]16-2015 History of Past illness Narrative* Problem Noted Date Resolved Date Tobacco abuse 07/10/2014 12/11/2017 ELEV BL PRES W/O HYPERTN 05/03/2006 015 documented as of this encounter (statuses as of 07/19/2022) [address]16-2015 History of Past illness Narrative* Problem Noted Date Resolved Date Tobacco abuse 07/10/2014 12/11/2017 ELEV BL PRES W/O HYPERTN 05/03/2006 015 documented as of this encounter (statuses as of 07/28/2022) [address]16[address]2015 History of Past illness Narrative* Problem Noted Date Resolved Date Tobacco abuse 07/10/2014 12/11/2017 ELEV BL PRES W/O HYPERTN 05/03/2006 015 documented as of this encounter (statuses as of 08/25/2022) [address]16[address]2015 History of Past illness Narrative* Problem Noted Date Diagnosed Date Resolved Date Tobacco abuse 07/10/2014 12/11/2017 ELEV BL PRES W/O HYPERTN 05/03/2006 documented as of this encounter (statuses as of 10/20/2022) [address]16[address]2015 History of Past illness Narrative* Problem Noted Date Diagnosed Date Resolved Date Tobacco abuse 07/10/2014 12/11/2017 Neoplasm of uncertain behavior of skin 05/03/2006 12/12/2022 ELEV BL PRES W/O HYPERTN 05/03/2006 documented as of this encounter (statuses as of 12/13/2022) [address] History of Past illness Narrative* Problem Noted Date Diagnosed Date Resolved Date Tobacco abuse 07/10/2014 12/11/2017 Neoplasm of uncertain behavior of skin 05/03/2006 12/12/2022 ELEV BL PRES W/O HYPERTN 05/03/2006 documented as of this encounter (statuses as of 12/16/2022) [address] History of Past illness Narrative* Problem Noted Date Diagnosed Date Resolved Date Tobacco abuse 07/10/2014 12/11/2017 Neoplasm of uncertain behavior of skin 05/03/2006 12/12/2022 ELEV BL PRES W/O HYPERTN 05/03/2006 documented as of this encounter (statuses as of 01/20/2023) [address]16[address]2015 History of Past illness Narrative* Problem Noted Date Diagnosed Date Resolved Date Tobacco abuse 07/10/2014 12/11/2017 Neoplasm of uncertain behavior of skin 05/03/2006 12/12/2022 ELEV BL PRES W/O HYPERTN 05/03/2006 documented as of this encounter (statuses as of 01/21/2023) [address]16[address]2015 History of Past illness Narrative* Problem Noted Date Diagnosed Date Resolved Date Tobacco abuse 07/10/2014 12/11/2017 Neoplasm of uncertain behavior of skin 05/03/2006 12/12/2022 ELEV BL PRES W/O HYPERTN 05/03/2006 documented as of this encounter (statuses as of 01/29/2023) [address]16[address]2015 History of Past illness Narrative* Problem Noted Date Diagnosed Date Resolved Date Tobacco abuse 07/10/2014 12/11/2017 Neoplasm of uncertain behavior of skin 05/03/2006 12/12/2022 ELEV BL PRES W/O HYPERTN 05/03/2006 documented as of this encounter (statuses as of 04/23/2023) [facility] History of Past illness Narrative* Problem Noted Date Diagnosed Date Resolved Date Tobacco abuse 07/10/2014 12/11/2017 Neoplasm of uncertain behavior of skin 05/03/2006 12/12/2022 ELEV BL PRES W/O HYPERTN 05/03/2006 documented as of this encounter (statuses as of 05/13/2023) [facility] note* Diagnosis Primary hypertension- Primary Unspecified essential hypertension [facility] Diagnosis Rectal prolapse- Primary Rectal mass Other symptoms involving digestive system [facility]* Diagnosis Exposure to hepatitis B- Primary Contact with or exposure to other viral diseases TB lung, latent Unspecified pulmonary tuberculosis, confirmation unspecified [facility]* Diagnosis Psoriatic arthritis (HCC)- Primary Psoriatic arthropathy PPD positive Nonspecific reaction to tuberculin skin test without active tuberculosis History of hepatitis B Personal history of other infectious and parasitic disease [facility]* Diagnosis Exposure to hepatitis B- Primary Contact with or exposure to other viral diseases Primary hypertension Unspecified essential hypertension Dyspepsia Dyspepsia and other specified disorders of function of stomach TB lung, latent Unspecified pulmonary tuberculosis, confirmation unspecified Psoriasis Other psoriasis [facility]* Diagnosis Psoriasis- Primary Other psoriasis [facility]* Diagnosis Psoriasis vulgaris- Primary Other psoriasis [facility]* Diagnosis Psoriasis vulgaris Other psoriasis [facility]* Diagnosis Psoriasis- Primary Other psoriasis Medication monitoring encounter Encounter for therapeutic drug monitoring Other eczema Contact dermatitis/other eczema [facility] Diagnosis Dyspepsia Dyspepsia and other specified disorders of function of stomach [facility]* Diagnosis Primary hypertension- Primary Unspecified essential hypertension Hyperlipidemia, mixed Mixed hyperlipidemia Psoriatic arthritis (HCC) Psoriatic arthropathy Alcohol dependence, daily use (HCC) Other and unspecified alcohol dependence, continuous drinking behavior Anemia, unspecified type Psychosexual dysfunction, unspecified Chronic pain of left knee Pain in joint, lower leg Rectal prolapse Internal hemorrhoids Internal hemorrhoids without mention of complication Need for vaccination Need for prophylactic vaccination and inoculation against unspecified single disease Hyperglycemia Other abnormal glucose Elevated liver enzymes Other nonspecific abnormal serum enzyme levels Helicobacter pylori gastritis Helicobacter pylori (H. pylori) [facility] Diagnosis Elevated liver enzymes- Primary Other nonspecific abnormal serum enzyme levels Alcohol dependence, daily use (HCC) Other and unspecified alcohol dependence, continuous drinking behavior [facility] Diagnosis Primary hypertension Unspecified essential hypertension [facility] Diagnosis Encounter for screening for lung cancer- Primary Former smoker Personal history of tobacco use, presenting hazards to health Lung nodules Other nonspecific abnormal finding of lung field [facility]* Diagnosis Dyspepsia Dyspepsia and other specified disorders of function of stomach documented [facility]* Diagnosis Dyspepsia Dyspepsia and other specified disorders of function of stomach documented [facility] Diagnosis Lung nodule- Primary Solitary pulmonary nodule Primary hypertension Unspecified essential hypertension Stage 3 chronic kidney disease, unspecified whether stage 3a or 3b CKD (HCC) Hyperglycemia Other abnormal glucose Anemia, unspecified type Elevated liver enzymes Other nonspecific abnormal serum enzyme levels Psoriatic arthritis (HCC) Psoriatic arthropathy Gallbladder polyp Cholesterolosis of gallbladder documented [facility] Diagnosis Anemia, unspecified type- Primary Elevated liver enzymes Other nonspecific abnormal serum enzyme levels [facility] Diagnosis Anemia, unspecified type- Primary Elevated liver enzymes Other nonspecific abnormal serum enzyme levels [facility] Diagnosis Elevated liver enzymes Other nonspecific abnormal serum enzyme levels Alcohol dependence, daily use (HCC) Other and unspecified alcohol dependence, continuous drinking behavior [facility]* Diagnosis Psoriasis- Primary Other psoriasis [facility]* Diagnosis History of Helicobacter pylori infection- Primary Personal history of other infectious and parasitic disease Anemia, unspecified type Gastroesophageal reflux disease with esophagitis, unspecified whether hemorrhage documented in this encounter [facility] for referral (narrative)* Diagnostic Procedure Only (Routine) - Authorized Specialty Diagnoses / Procedures Referred By Contcésar t Referred To Contact US IMAGING Diagnoses Elevated liver enzymes Alcohol dependence, daily use (HCC) Procedures US ABD RIGHT UPPER QUADRANT US ABDOMINAL REAL TIME W/IMAGE LIMITED James Koehler PA-C [address] [place] [address] Us Imaging Referral ID Status Reason Start Date Expiration Date Visits Requested Visits Authorized [id number] Authorized Auto-Generat ed Referral 06/17/2022 07/17/2023 1 1 [facility] Diagnostic Procedure Only (Routine) - Closed Specialty Diagnoses / Procedures Referred By Contac t Referred To Contact US IMAGING Diagnoses Elevated liver enzymes Alcohol dependence, daily use (HCC) Procedures US ABD RIGHT UPPER QUADRANT US ABDOMINAL REAL TIME W/IMAGE LIMITED James Koehler PA-C [address] [place] [address] [place] [address] Referral ID Status Reason Start Date Expiration Date V isits Requested Visits Authorized [id number] Closed Auto-Generate d Referral 06/17/2022 07/17/2023 1 1 [facility] Advance Directives No Advanced Directives Records FoundDocuments on File Type Date Recorded Patient Back Shoe Operator Expl anation Advance Directive(s) 09/24/2019 8:41 AM Advance Directive(s) 09/18/2019 4:26 PM Documents on File Type Date Recorded Patient Back Shoe Operator Expl anation Advance Directive(s) 09/24/2019 8:41 AM Advance Directive(s) 09/18/2019 4:26 PM Health Concerns Infection Onset Date Last Indicated Resolved Time COVID-19 Rule-Out 02/08/2021 02/08/2021 02/09/2021 5:03 AM EST Reason for Referral Specialty Diagnoses / Procedures Referred By Contac t Referred To Contact General Surgery Diagnoses Rectal prolapse Rectal mass Procedures CONSULT TO GENERAL SURGERY OFFICE/OUTPATIENT NEW HIGH MDM 60-74 MINUTES James Koehler PA-C [address] [place] [address] Referral ID Status Reason Start Date Expiration Date Visits Requested Visits Authorized [id number] Authorized PCP Requested Referral 08/13/2021 08/13/2022 1 1 Specialty Diagnoses / Procedures Referred By Contac t Referred To Contact Infectious Diseases Diagnoses Psoriatic arthritis (HCC) PPD positive History of hepatitis B Procedures CONSULT TO INFECTIOUS DISEASES OFFICE/OUTPATIENT [facility] 60-74 MINUTES Abhijeet Islas MD [address] [place] [address] Referral ID Status Reason Start Date Expiration Date Visits Requested Visits Authorized [id number] Authorized PCP Requested Referral 11/21/2021 11/21/2022 1 1 Specialty Diagnoses / Procedures Referred By Contac t Referred To Contact CT IMAGING Diagnoses Lung nodules Procedures CT LUNG FOLLOWUP WO IVCON DIAGNOSTIC COMPUTED TOMOGRAPHY THORAX W/O CNTRST Cristy Porras, EQUITY SALES ASSISTANT.DECORATING INSTRUCTOR [address] [place] [address] Ct Imaging Referral ID Status Reason Start Date Expiration Date Visits Requested Visits Authorized [id number] Pending Review Auto-Generat ed Referral 07/11/2022 08/10/2023 1 1 Specialty Diagnoses / Procedures Referred By Contac t Referred To Contact Diagnoses Elevated liver enzymes Procedures CONSULT TO HEPATOLOGY OFFICE/OUTPATIENT [facility] 60-74 MINUTES Abhijeet Islas MD [address] [place] [address] Referral ID Status Reason Start Date Expiration Date Visits Requested Visits Authorized [id number] Authorized PCP Requested Referral 12/13/2022 12/13/2023 1 1 Medications Administered Section Inactive Administered Medications - up to 3 most recent administrations Medication Order MAR Action Action Date Dose Rate Site secukinumab 300 mg injection (COSENTYX) 300 mg, SUBCUTANEOUS, ONCE, 1 dose, On Pam 02/10/22 at 1100, REFRIGERATE Given 02/10/2022 10:44 AM EST 300 mg Abdomen, LUQ Summary Purpose Family History No Family History Records Found Additional Source Comments Source Comments (unrecognize d section and content) In the event this informatio n is protected by the Federal Confidentiality of Alcohol and Drug Abuse Patient Records regulations: The Federal rules restrict any use of the information to criminally investigate or prosecute any alcohol or drug abuse patient.[facility] the event this information is protected by the Federal Confidentiality of Alcohol and Drug Abuse Patient Records regulations: The Federal rules restrict any use of the information to criminally investigate or prosecute any alcohol or drug abuse patient.[facility] CompanyIn the event this information is protected by the Federal Confidentiality of Alcohol and Drug Abuse Patient Records regulations: The Federal rules restrict any use of the information to criminally investigate or prosecute any alcohol or drug abuse patient.[facility] Company[facility] the event this information is protected by the Federal Confidentiality of Alcohol and Drug Abuse Patient Records regulations: The Federal rules restrict any use of the information to criminally investigate or prosecute any alcohol or drug abuse patient.[facility] the event this information is protected by the Federal Confidentiality of Alcohol and Drug Abuse Patient Records regulations: The Federal rules restrict any use of the information to criminally investigate or prosecute any alcohol or drug abuse patient.[facility] CompanyIn the event this information is protected by the Federal Confidentiality of Alcohol and Drug Abuse Patient Records regulations: The Federal rules restrict any use of the information to criminally investigate or prosecute any alcohol or drug abuse patient.[facility] CompanyIn the event this information is protected by the Federal Confidentiality of Alcohol and Drug Abuse Patient Records regulations: The Federal rules restrict any use of the information to criminally investigate or prosecute any alcohol or drug abuse patient.[facility] CompanyIn the event this information is protected by the Federal Confidentiality of Alcohol and Drug Abuse Patient Records regulations: The Federal rules restrict any use of the information to criminally investigate or prosecute any alcohol or drug abuse patient.[facility] CompanyIn the event this information is protected by the Federal Confidentiality of Alcohol and Drug Abuse Patient Records regulations: The Federal rules restrict any use of the information to criminally investigate or prosecute any alcohol or drug abuse patient.[facility] the event this information is protected by the Federal Confidentiality of Alcohol and Drug Abuse Patient Records regulations: The Federal rules restrict any use of the information to criminally investigate or prosecute any alcohol or drug abuse patient.[facility] Company[facility] the event this information is protected by the Federal Confidentiality of Alcohol and Drug Abuse Patient Records regulations: The Federal rules restrict any use of the information to criminally investigate or prosecute any alcohol or drug abuse patient.[facility] Company[facility] the event this information is protected by the Federal Confidentiality of Alcohol and Drug Abuse Patient Records regulations: The Federal rules restrict any use of the information to criminally investigate or prosecute any alcohol or drug abuse patient.[facility] the event this information is protected by the Federal Confidentiality of Alcohol and Drug Abuse Patient Records regulations: The Federal rules restrict any use of the information to criminally investigate or prosecute any alcohol or drug abuse patient.[facility] CompanyIn the event this information is protected by the Federal Confidentiality of Alcohol and Drug Abuse Patient Records regulations: The Federal rules restrict any use of the information to criminally investigate or prosecute any alcohol or drug abuse patient.[facility] CompanyIn the event this information is protected by the Federal Confidentiality of Alcohol and Drug Abuse Patient Records regulations: The Federal rules restrict any use of the information to criminally investigate or prosecute any alcohol or drug abuse patient.[facility] Company[facility] the event this information is protected by the Federal Confidentiality of Alcohol and Drug Abuse Patient Records regulations: The Federal rules restrict any use of the information to criminally investigate or prosecute any alcohol or drug abuse patient.[facility] Company[facility] the event this information is protected by the Federal Confidentiality of Alcohol and Drug Abuse Patient Records regulations: The Federal rules restrict any use of the information to criminally investigate or prosecute any alcohol or drug abuse patient.[facility] CompanyIn the event this information is protected by the Federal Confidentiality of Alcohol and Drug Abuse Patient Records regulations: The Federal rules restrict any use of the information to criminally investigate or prosecute any alcohol or drug abuse patient.[facility] CompanyIn the event this information is protected by the Federal Confidentiality of Alcohol and Drug Abuse Patient Records regulations: The Federal rules restrict any use of the information to criminally investigate or prosecute any alcohol or drug abuse patient.[facility] the event this information is protected by the Federal Confidentiality of Alcohol and Drug Abuse Patient Records regulations: The Federal rules restrict any use of the information to criminally investigate or prosecute any alcohol or drug abuse patient.[facility] CompanyIn the event this information is protected by the Federal Confidentiality of Alcohol and Drug Abuse Patient Records regulations: The Federal rules restrict any use of the information to criminally investigate or prosecute any alcohol or drug abuse patient.[facility] CompanyIn the event this information is protected by the Federal Confidentiality of Alcohol and Drug Abuse Patient Records regulations: The Federal rules restrict any use of the information to criminally investigate or prosecute any alcohol or drug abuse patient.[facility] CompanyIn the event this information is protected by the Federal Confidentiality of Alcohol and Drug Abuse Patient Records regulations: The Federal rules restrict any use of the information to criminally investigate or prosecute any alcohol or drug abuse patient.[facility]In the event this information is protected by the Federal Confidentiality of Alcohol and Drug Abuse Patient Records regulations: The Federal rules restrict any use of the information to criminally investigate or prosecute any alcohol or drug abuse patient.[facility]In the event this information is protected by the Federal Confidentiality of Alcohol and Drug Abuse Patient Records regulations: The Federal rules restrict any use of the information to criminally investigate or prosecute any alcohol or drug abuse patient.[facility] CompanyIn the event this information is protected by the Federal Confidentiality of Alcohol and Drug Abuse Patient Records regulations: The Federal rules restrict any use of the information to criminally investigate or prosecute any alcohol or drug abuse patient.[facility] CompanyIn the event this information is protected by the Federal Confidentiality of Alcohol and Drug Abuse Patient Records regulations: The Federal rules restrict any use of the information to criminally investigate or prosecute any alcohol or drug abuse patient.[facility]In the event this information is protected by the Federal Confidentiality of Alcohol and Drug Abuse Patient Records regulations: The Federal rules restrict any use of the information to criminally investigate or prosecute any alcohol or drug abuse patient.[facility] CompanyIn the event this information is protected by the Federal Confidentiality of Alcohol and Drug Abuse Patient Records regulations: The Federal rules restrict any use of the information to criminally investigate or prosecute any alcohol or drug abuse patient.[facility] CompanyIn the event this information is protected by the Federal Confidentiality of Alcohol and Drug Abuse Patient Records regulations: The Federal rules restrict any use of the information to criminally investigate or prosecute any alcohol or drug abuse patient.[facility] CompanyIn the event this information is protected by the Federal Confidentiality of Alcohol and Drug Abuse Patient Records regulations: The Federal rules restrict any use of the information to criminally investigate or prosecute any alcohol or drug abuse patient.[facility] CompanyIn the event this information is protected by the Federal Confidentiality of Alcohol and Drug Abuse Patient Records regulations: The Federal rules restrict any use of the information to criminally investigate or prosecute any alcohol or drug abuse patient.[facility] CompanyIn the event this information is protected by the Federal Confidentiality of Alcohol and Drug Abuse Patient Records regulations: The Federal rules restrict any use of the information to criminally investigate or prosecute any alcohol or drug abuse patient.[facility] Reason for Visit (unrecogniz ed section and content) Reason Onset Date Comments Cough 02/08/2021 Reason Comments Rectal Problem Reason Comments Patient Update Reason Comments Results Reason Comments Results Reason Comments Results Here to follow up on labs and discuss medications Reason Comments Follow Up Reason Comments Orders Reason Comments Education Of Patient/family Reason Comments Patient Question Reason Comments Refill Request Related to [employer] Patient Assistance for [employer] Reason Comments [employer] patient assistance approval Reason Comments Psoriasis Reason Comments Refill Request Reason Onset Date Comments Refill Request 06/29/2022 Reason Comments Recheck Reason Onset Date Comments Refill Request 07/18/2022 Reason Onset Date Comments Population Health Navigation Outreach 07/28/2022 ACO HCC Reason Onset Date Comments Refill Request 08/24/2022 Reason Onset Date Comments Refill Request 10/19/2022 Reason Comments 6 Month Exam Reason Comments FYI-No Action Needed Reason Comments Radiology US Specialty Diagnoses / Procedures Referred By Contac t Referred To Contact US IMAGING Diagnoses Elevated liver enzymes Alcohol dependence, daily use (HCC) Procedures US ABD RIGHT UPPER QUADRANT US ABDOMINAL REAL TIME W/IMAGE LIMITED James Koehler PA-C [address] [facility] [place] [address] [place] [address] Referral ID Status Reason Start Date Expiration Date V isits Requested Visits Authorized [id number] Closed Auto-Generate d Referral 06/17/2022 07/17/2023 1 1 Reason Comments Consult Anemia, Cologuard wa s negative 06/27/22 US abd/spleen Specialty Diagnoses / Procedures Referred By Fawad stiles Referred To Contact General Surgery Diagnoses Anemia, unspecified type Gastroesophageal reflux disease with esophagitis, unspecified whether hemorrhage Procedures CONSULT TO GENERAL SURGERY OFFICE/OUTPATIENT [facility] HIGH MDM 60-74 MINUTES Abhijeet Islas MD [address] [place] [address] Referral ID Status Reason Start Date Expiration Date V isits Requested Visits Authorized [id number] Closed PCP Requested Referral 03/25/2023 03/24/2024 1 1 Care Teams (unrecognized sec tion and content) Metal Fabricator Apprentice Relationship Specialty Start Date End Date Abhijeet Islas MD [address] [place] [address] [id number] PCP - General Family Practice 06/12/14 Metal Fabricator Apprentice Relationship Specialty Start Date End Date Abhijeet Islas MD [address] [place] [id number] PCP - General Family Practice 06/12/14 Metal Fabricator Apprentice Relationship Specialty Start Date End Date Abhijeet Islas MD [address] [place] [id number] PCP - General Family Practice 06/12/14 Metal Fabricator Apprentice Relationship Specialty Start Date End Date Abhijeet Islas MD [address] [place] [address]892 PCP - General Family Practice 06/12/14 Metal Fabricator Apprentice Relationship Specialty Start Date End Date Abhijeet Islas MD [address] [place] [address] PCP - General Family Practice 06/12/14 Metal Fabricator Apprentice Relationship Specialty Start Date End Date Abhijeet Islas MD [address] [place] [address] PCP - General Family Practice 06/12/14 Metal Fabricator Apprentice Relationship Specialty Start Date End Date Abhijeet Islas MD [address] [facility] [place] [address] PCP - General Family Practice 06/12/14 Metal Fabricator Apprentice Relationship Specialty Start Date End Date Abhijeet Islas MD [address] [facility] [place] [address] PCP - General Family Practice 06/12/14 Metal Fabricator Apprentice Relationship Specialty Start Date End Date Abhijeet Islas MD [address] [facility] [place] [address] PCP - General Family Practice 06/12/14 Metal Fabricator Apprentice Relationship Specialty Start Date End Date Abhijeet Islas MD [address] [facility] [place] [address] PCP - General Family Medicine 06/12/14 Metal Fabricator Apprentice Relationship Specialty Start Date End Date Abhijeet Islas MD [address] [facility] [place] [address] PCP - General Family Medicine 06/12/14 Metal Fabricator Apprentice Relationship Specialty Start Date End Date Abhijeet Islas MD [address] [facility] [place] [address] PCP - General Family Medicine 06/12/14 Metal Fabricator Apprentice Relationship Specialty Start Date End Date Abhijeet Islas MD [address] [facility] [place] [address] PCP - General Family Medicine 06/12/14 Metal Fabricator Apprentice Relationship Specialty Start Date End Date Abhijeet Islas MD [address] [facility] [place] [address] PCP - General Family Medicine 06/12/14 Metal Fabricator Apprentice Relationship Specialty Start Date End Date Abhijeet Islas MD [address] [facility] [place] [address] PCP - General Family Medicine 06/12/14 Metal Fabricator Apprentice Relationship Specialty Start Date End Date Abhijeet Islas MD [address] [facility] [place] [address] PCP - General Family Medicine 06/12/14 Metal Fabricator Apprentice Relationship Specialty Start Date End Date Abhijeet Islas MD [address] [place] [address] PCP - General Family Medicine 06/12/14 Metal Fabricator Apprentice Relationship Specialty Start Date End Date Abhijeet Islas MD [address] [place] [address] PCP - General Family Medicine 06/12/14 Metal Fabricator Apprentice Relationship Specialty Start Date End Date Abhijeet Islas MD [address] [place] [address] PCP - General Family Medicine 06/12/14 Metal Fabricator Apprentice Relationship Specialty Start Date End Date Abhijeet Islas MD [address] [place] [address] PCP - General Family Medicine 06/12/14 Metal Fabricator Apprentice Relationship Specialty Start Date End Date Abhijeet Islas MD [address] [place] [address] PCP - General Family Medicine 06/12/14 Metal Fabricator Apprentice Relationship Specialty Start Date End Date Abhijeet Islas MD [address] [place] [address] PCP - General Family Medicine 06/12/14 Metal Fabricator Apprentice Relationship Specialty Start Date End Date Abhijeet Islas MD [address] [place] [address] PCP - General Family Medicine 06/12/14 Metal Fabricator Apprentice Relationship Specialty Start Date End Date Abhijeet Islas MD [address] [place] [address] PCP - General [facility] 06/12/14 Metal Fabricator Apprentice Relationship Specialty Start Date End Date Abhijeet Islas MD [address] [place], [place] [address] PCP - General [facility] 06/12/14 Metal Fabricator Apprentice Relationship Specialty Start Date End Date Abhijeet Islas MD [address] [place], [place] [id number] PCP - [facility] 06/12/14 (unrecognized sect ion and content) No Status Records Found INFORMATION SOURCE (unrecogn ized section and content) FOR RECORDS PERTAINING TO PATIENTS WHO ARE OR HAVE BEEN ENROLLED IN A CHEMICAL DEPENDENCY/SUBSTANCEABUSE PROGRAM, SOME INFORMATION MAY BE OMITTED. This clinical summary was aggregated from multiple sources. Caution should be exercised in using it in the provision of clinical care. This summary normalizes information from multiple sources, and as a consequence, information in this document may materially change the coding, format and clinical context of patient data. In addition, data may be omitted in some cases. CLINICAL DECISIONS SHOULD BE BASED ON THE PRIMARY CLINICAL RECORDS. [facility] Utility Funding [facility] provides no warranty or guarantee of the accuracy or completeness of information in this document.
[2023-05-21 17:03] LABS: ALB/GLOB Ratio 0.9 RATIO (0.9-2.4); AST(SGOT) 29 U/L (15-37); Alanine Aminotransfer ALT/SGPT 36 U/L (16-61); Albumin, Serum 3.8 g/dL (3.2-5.0); Alkaline Phosphatase 129 U/L (45-117); Anion Gap 5 (5-15); BUN 9 mg/dL (7-18); BUN/Creat Ratio 8.4 RATIO (10-20); Calcium,Total 9.2 mg/dL (8.5-10.1); Chloride 105 mmol/L (98-107); Creatinine, Serum 1.07 mg/dL (0.70-1.30); EST Glomerular Filtration Rate 72 mL/min (>60); Est Glom Filt Rate - Afr Amer 87 mL/min (>60); Estimated Creatinine Clearance 53.49 ml/min; Globulin 4.2 g/dL (2.2-4.2); Glucose 132 mg/dL (74-106); Potassium 3.9 mmol/L (3.5-5.1); Sodium Level 137 mmol/L (136-145)
[2023-05-21 18:17] VITALS: BP 143/74; PULSE 59; RESP 18; O2SAT 97
[2023-05-21 19:10] VITALS: BP 149/68; PULSE 53; RESP 18; TEMP 36.7; O2SAT 97
[2023-05-21 19:25] VITALS: BP 155/78; PULSE 58; RESP 16; TEMP 36.7; O2SAT 98
== END 2023-05-21 19:29 | disposition left against medical advice (07) ==
PROVIDERS: Physician Assistant; Emergency Provider Emergency Medicine; PCP Family Medicine; Visit Provider Emergency Medicine
DX: R42 Dizziness and giddiness (principal)
CPT/HCPCS: 70496; 70498; 71045; 80053; 85025; 93005; 99284; Q9967; A4216

== ENCOUNTER 2023-05-22 12:50 | Emergency (ER) | payer MEDICARE, SELFPAY ==
[2023-05-22] VITALS (11 sets, daily range): BP systolic 136–160; BP diastolic 62–84; PULSE 54–64; RESP 18–20; TEMP 36.8–36.9; O2SAT 98–99; BMI 24.7
--- NOTE | 2023-05-22 13:03 | EX.ED.DYSGE1 ---
HPI <IVONNE Nam - Last Filed: 05/22/23 19:33> History of Present Illness Chief Complaint: Dizziness Narrative Narrative: 72-year-old male manage of HTN was here last night when he started having vertigo episodes. Last night it occurred with walking but did not really seem triggered by head movements. He had normal labs and CTA head/neck. He states this morning while walking in his kitchen he had severe room spinning lasting 5 seconds. He had to hold onto the counter and thought he would fall over. He called EMS to bring him in because he did not feel safe to drive. He had no associated vision changes, nausea or vomiting, chest pain or shortness of breath. He now has a tight sensation in the bifrontal area. [facility] <IVONNE Nam - Last Filed: 05/22/23 19:33> [facility] Medical History (Updated 05/22/23 @ 19:29 by IVONNE Nam) Hypertension Home Medications Unobtainable 05/21/23 [History Last Taken Unknown] Allergy/AdvReac Type Severity Reaction Status Date / Time No Known Allergies Allergy Verified 05/21/23 16:29 Surgical History H/O hernia repair Social History (System 05/18/23 @ 11:29 by Cristina Agrawal) Smoking Status: Never smoker ROS <IVONNE Nam - Last Filed: 05/22/23 19:33> ROS ED ROS Narrative Constitutional: Negative for fever, chills, malaise. Eyes: Negative for visual change. CVS: Negative for palpitations, chest pain, syncope. Respiratory: Negative for shortness of breath. GI: Negative for abdominal pain, nausea, vomiting. EXAM <IVONNE Nam - Last Filed: 05/22/23 19:33> Physical Exam Narrative Exam Narrative: CONST: Patient sitting in no acute distress. EYES: Normal inspection. PERRL, EOMI, horizontal nystagmus. ENT: Normal inspection, moist mucous membranes. NECK: Normal inspection. RESP: No respiratory distress, CTAB. CVS: Regular rate and rhythm, no murmur, no gallop. SKIN: Color normal, no rash, warm, dry, intact. EXTREMITIES: Normal appearance, no pedal edema. NEURO: Oriented x4. Face symmetric, 5/5 upper and lower extremity strength, normal finger-nose and [id number], no drift, no dysarthria or aphasia. NIH is 0. PSYCH: Normal affect. Const Vital Signs: 05/22/23 12:51 05/22/23 12:54 05/22/23 13:30 Temperature 98.2 F Temperature Source Oral Pulse Rate 64 57 L Respiratory Rate 20 H 19 H Blood Pressure 160/67 H 137/62 H Blood Pressure Mean 98 85 Pulse Ox 99 98 Oxygen Delivery Method Room Air 05/22/23 14:00 05/22/23 14:15 05/22/23 14:30 Temperature Temperature Source Pulse Rate 59 L 57 L 56 L Respiratory Rate 19 H 20 H 19 H Blood Pressure 137/84 H 146/71 H 138/72 H Blood Pressure Mean 98 95 90 Pulse Ox 99 98 98 Oxygen Delivery Method 05/22/23 14:45 05/22/23 15:00 05/22/23 15:15 Temperature Temperature Source Pulse Rate 57 L 54 L Respiratory Rate 18 19 H Blood Pressure 140/67 H 147/74 H 136/72 H Blood Pressure Mean 91 95 90 Pulse Ox 99 98 Oxygen Delivery Method 05/22/23 15:50 Temperature Temperature Source Pulse Rate 56 L Respiratory Rate 20 H Blood Pressure Blood Pressure Mean Pulse Ox 98 Oxygen Delivery Method <Dr. Allan Becker MD - Last Filed: 05/22/23 16:57> Physical Exam Const Vital Signs: 05/22/23 12:51 05/22/23 12:54 05/22/23 13:30 Temperature 98.2 F Temperature Source Oral Pulse Rate 64 57 L Respiratory Rate 20 H 19 H Blood Pressure 160/67 H 137/62 H Blood Pressure Mean 98 85 Pulse Ox 99 98 Oxygen Delivery Method Room Air 05/22/23 14:00 05/22/23 14:15 05/22/23 14:30 Temperature Temperature Source Pulse Rate 59 L 57 L 56 L Respiratory Rate 19 H 20 H 19 H Blood Pressure 137/84 H 146/71 H 138/72 H Blood Pressure Mean 98 95 90 Pulse Ox 99 98 98 Oxygen Delivery Method 05/22/23 14:45 05/22/23 15:00 05/22/23 15:15 Temperature Temperature Source Pulse Rate 57 L 54 L Respiratory Rate 18 19 H Blood Pressure 140/67 H 147/74 H 136/72 H Blood Pressure Mean 91 95 90 Pulse Ox 99 98 Oxygen Delivery Method 05/22/23 15:50 Temperature Temperature Source Pulse Rate 56 L Respiratory Rate 20 H Blood Pressure Blood Pressure Mean Pulse Ox 98 Oxygen Delivery Method [facility] <IVONNE Nam - Last Filed: 05/22/23 19:33> [facility] Narrative Medical decision making narrative: Patient had a recurrent episode of vertigo and feeling off balance this morning. Was seen here last night for the same and had negative workup including labs and CTA head/neck. He did not want to be admitted for MRI. Repeat episode this morning sounds consistent with peripheral vertigo. His exam is normal. NIH is 0. He has no reproducible symptoms. Since plan last night was admission with MRI I will order this to be done in the ED and treat with meclizine. MRI brain shows no acute process. He is send no recurrence of symptoms in the ED. I recommended follow-up with his PCP and he was discharged in stable condition. Patient seen and evaluated with AMINA. I personally interviewed and examined the patient. I was involved in all aspects of patient's orders, interpretation of results, and treatment. Attending note: 72-year-old male with dizziness that describes as off-balance. Not room spinning. Was seen here there today for the same and had negative workup including a CTA. At that time he did not want to stay to be admitted for MRI and further evaluation. He denies any recent illness or head trauma. Physical exam is [id number] male vital signs stable afebrile. Pulse ox 99% room air no hypoxia. No distress. Clinically looks well. HEENT exam normal. TMs normal. No wax. Pupils round reactive light. No facial droop. Normal speech. Neck nontender no bruits. Lungs clear. Heart regular rhythm rate about 65 no murmur. Chest nontender. Abdomen soft nontender. Moving all 4 extremities. 5/5 GRIPTION. Dorsi plantarflexion intact. Negative drift with either upper or lower extremities. Fingertip to nose and [id number] within normal limits bilaterally. Neurologic exam normal. Awake alert oriented. Answering questions following commands. NIH is 0. Hallpike is negative. Pending brain MRI checked out to the afternoon physician. Lab Data Labs: Laboratory Results - last 24 hr 05/22/23 12:55 WBC 6.3 RBC 6.58 H Hgb 13.3 Hct 44.5 MCV 67.6 L MCH 20.2 L MCHC 29.9 L RDW Std Deviation 38.9 RDW Coeff of Michael 18.4 H Plt Count 282 MPV 10.2 Immature Gran % (Auto) 0.300 Neut % (Auto) 58.8 Lymph % (Auto) 28.6 Zapata % (Auto) 9.0 Eos % (Auto) 2.7 Baso % (Auto) 0.6 Absolute Neuts (auto) 3.7 Absolute Lymphs (auto) 1.81 Nucleated RBC % 0 Sodium 135 L Potassium 3.9 Chloride 103 Carbon Dioxide 27.0 Anion Gap 5 BUN 9 Creatinine 1.16 Estim Creat Clear Calc 49.34 Est GFR (MDRD) Af Amer 79 Est GFR (MDRD) Non-Af 65 BUN/Creatinine Ratio 7.8 L Glucose 206 H Calcium 9.5 Radiography Diagnostic Testing: Clinical Impression(s) from Imaging Studies Brain MRI 05/22/23 13:11 IMPRESSION: Mild atrophy. No evidence for appreciable periventricular white matter disease or acute infarct. Electronically Signed: Live Meraz MD at 19:21 EST , <Dr. Allan Becker MD - Last Filed: 05/22/23 16:57> [facility] Narrative Medical decision making narrative: Patient had a recurrent episode of vertigo and feeling off balance this morning. Was seen here last night for the same and had negative workup including labs and CTA head/neck. He did not want to be admitted for MRI. Repeat episode this morning sounds consistent with peripheral vertigo. His exam is normal. NIH is 0. He has no reproducible symptoms. Since plan last night was admission with MRI I will order this to be done in the ED and treat with meclizine Patient seen and evaluated with AMINA. I personally interviewed and examined the patient. I was involved in all aspects of patient's orders, interpretation of results, and treatment. Attending note: 72-year-old male with dizziness that describes as off-balance. Not room spinning. Was seen here there today for the same and had negative workup including a CTA. At that time he did not want to stay to be admitted for MRI and further evaluation. He denies any recent illness or head trauma. Physical exam is [id number] male vital signs stable afebrile. Pulse ox 99% room air no hypoxia. No distress. Clinically looks well. HEENT exam normal. TMs normal. No wax. Pupils round reactive light. No facial droop. Normal speech. Neck nontender no bruits. Lungs clear. Heart regular rhythm rate about 65 no murmur. Chest nontender. Abdomen soft nontender. Moving all 4 extremities. 5/5 GRIPTION. Dorsi plantarflexion intact. Negative drift with either upper or lower extremities. Fingertip to nose and [id number] within normal limits bilaterally. Neurologic exam normal. Awake alert oriented. Answering questions following commands. NIH is 0. Hallpike is negative. Pending brain MRI checked out to the afternoon physician. History & Record Review Discussion w/independent historian: Patient Additional record(s) reviewed:: Prior inpatient record, Prior outpatient record, Prior ED visit, Prior labs and No prior records Lab Data Attestation: I reviewed the patient's lab results. Lab results narrative: CBC white count 6. H&H of 13 and 44. Platelets 282.CBC white count 6. Electrolytes sodium 135. Gap 5. Normal BUN and creatinine. Glucose 206. Labs: Laboratory Results - last 24 hr 05/22/23 12:55 WBC 6.3 RBC 6.58 H Hgb 13.3 Hct 44.5 MCV 67.6 L MCH 20.2 L MCHC 29.9 L RDW Std Deviation 38.9 RDW Coeff of Michael 18.4 H Plt Count 282 MPV 10.2 Immature Gran % (Auto) 0.300 Neut % (Auto) 58.8 Lymph % (Auto) 28.6 Zapata % (Auto) 9.0 Eos % (Auto) 2.7 Baso % (Auto) 0.6 Absolute Neuts (auto) 3.7 Absolute Lymphs (auto) 1.81 Nucleated RBC % 0 Sodium 135 L Potassium 3.9 Chloride 103 Carbon Dioxide 27.0 Anion Gap 5 BUN 9 Creatinine 1.16 Estim Creat Clear Calc 49.34 Est GFR (MDRD) Af Amer 79 Est GFR (MDRD) Non-Af 65 BUN/Creatinine Ratio 7.8 L Glucose 206 H Calcium 9.5 Radiography Diagnostic Testing: Clinical Impression(s) from Imaging Studies Brain MRI 05/22/23 13:11 IMPRESSION: Mild atrophy. No evidence for appreciable periventricular white matter disease or acute infarct. Electronically Signed: Live Meraz MD at 19:21 EST Reading Location ID and State: [facility] / [place] Tel , Service support , Discharge Plan Triage Chief Complaint: Dizziness ED Midlevel Provider: Namrata Herron ED Provider: Allan Becker Dx/Rx/DC Orders Clinical Impression: Disequilibrium Instructions: ED Dizziness, Uncertain Cause Prescriptions: No Action Unobtainable Primary Care Provider: Abhijeet Islas Referrals: Abhijeet Islas MD [Primary Care Provider] - Activity Restrictions/Additional Instructions: The MRI of your brain look normal with no signs of a stroke. Please follow-up with your primary care doctor this week. Disposition Disposition: Home, Self Care
--- NOTE | 2023-05-22 13:11 | MRI_ITS ---
STUDY: MRI BRAIN WITHOUT CONTRAST REASON FOR EXAM: Male, 72 years old. vertigo TECHNIQUE: Standardized multiplanar fat and water weighted pulse sequences were obtained. COMPARISON: None. FINDINGS: Mild atrophy.. Normal white matter tracts of the supratentorial brain. Normal bilateral basal ganglia. Normal thalami. There is no extra-axial fluid accumulation. Normal flow voids within the major intracranial circulation suggesting patency by spin echo criteria. Normal sella turcica, pituitary gland, infundibular stalk, optic chiasm and hypothalamus. Normal tectal plate and pineal gland. Normal midbrain, kenisha and medulla. Normal cerebellum. Normal basal cisterns. Normal bilateral temporal bones. Normal bilateral internal auditory canals. No demonstrated orbital abnormality, within the constraints of a routine brain study. Minor mucosal thickening of the maxillary sinuses. Normal calvarium and skull base. Normal visualized soft tissue structures. Normal visualized upper cervical spine. MRI/Brain without Contrast IMPRESSION: Mild atrophy. No evidence for appreciable periventricular white matter disease or acute infarct. Electronically Signed: Live Meraz MD at 19:21 EST Reading Location ID and State: [facility] / [place] Tel , Service support ,
[2023-05-22 13:20] LABS: Absolute Lymphocyte Count 1.81 X10^3/uL (0.83-4.51); Absolute Neutrophil Count 3.7 X10^3/uL (2.0-7.7); Basophil# 0.04 X10^3/uL; Basophil% 0.6 % (0-1); Eosinophil# 0.17 X10^3/uL; Eosinophils% 2.7 % (0-5); Hematocrit 44.5 % (40-54); Hemoglobin 13.3 g/dL (13.0-16.5); Lymphocyte # 1.81 X10^3/ul (0.83-4.51); Lymphocyte % 28.6 % (19-41); Mean Corp Hgb Conc 29.9 g/dL (32-36); Mean Corpuscular Hgb 20.2 pg (27.0-32.0); Mean Corpuscular Volume 67.6 fL (80-94); Mean Platelet Vol. 10.2 fl (6.2-12.0); Monocyte# 0.57 X10^3/uL; NRBC Flagged by Analyzer 0 % (0-5); Neutrophil # 3.72 X10^3/uL (2.7-7.7); Neutrophil % 58.8 % (47-70); Platelet Count 282 K/mm3 (150-450); RBC Distribution Width CV 18.4 % (11.6-14.6); RBC Distribution Width SD 38.9 fl (35.1-43.9); Red Blood Count 6.58 M/mm3 (4.6-6.2); White Blood Count 6.3 K/mm3 (4.4-11.0)
[2023-05-22 13:32] LABS: Anion Gap 5 (5-15); BUN 9 mg/dL (7-18); BUN/Creat Ratio 7.8 RATIO (10-20); Calcium,Total 9.5 mg/dL (8.5-10.1); Chloride 103 mmol/L (98-107); Creatinine, Serum 1.16 mg/dL (0.70-1.30); EST Glomerular Filtration Rate 65 mL/min (>60); Est Glom Filt Rate - Afr Amer 79 mL/min (>60); Estimated Creatinine Clearance 49.34 ml/min; Glucose 206 mg/dL (74-106); Potassium 3.9 mmol/L (3.5-5.1); Sodium Level 135 mmol/L (136-145)
[2023-05-22] MEDS: Meclizine HCl 25 MG Tablet PO (13:34)
== END 2023-05-22 19:40 | disposition home or self-care (01) ==
PROVIDERS: Physician Assistant; Emergency Provider Emergency Medicine; PCP Family Medicine; Visit Provider Emergency Medicine
DX: R42 Dizziness and giddiness (principal)
CPT/HCPCS: 70551; 80048; 85025; 99283